=== PATIENT | male | born 1945 | race Caucasian/White ===

== ENCOUNTER 2019-11-11 07:31 | Outpatient (CLI) | payer MEDICARE, SELFPAY ==
--- NOTE | 2019-11-11 09:15 | EST_ITS ---
Patient Info Name: David Iyer Age: 74 years : 1945 Gender: Male Ht: 67 in Wt: 185 lbs BSA: 2.01 m2 HR: 65 bpm BP: 136 / 69 mmHg Heart Rhythm: Sinus Rhythm Technical Quality: Excellent Exam Date: 11/11/2019 9:06 AM Exam Location: [facility] Patient Status: Outpatient Admit Date: 11/11/2019 Staff Ordering Physician: Jd, Danielito SANCHEZ Attending Provider: Jd, Danielito SANCHEZ Referring Physician: Danielito Miles Exercise Technologist: Kellie Torres CRT Exercise Physician: Lakia De Oliveira CEP Exam Type: CA stress mckenzie w NM Study Info A nuclear stress test was performed. History/Risk Factors Hypertension: Yes Diabetes Mellitus: Yes History/Risk Factors Hypertension, Diabetes. Summary 1. 1. Negative lexiscan stress test for ischemic ST changes by ECG criteria. 2. 2. Stable hemodynamics throughout the test. 3. 3. Nuclear scan to follow and will be reported separately. Please correlate with it. Protocol: LEXISCAN Stress ECG Details Stage: REST Duration (min): 1 min : 30 sec HR (bpm): 65 SBP (mmHg): 136 DBP (mmHg): 69 Stage: REST Duration (min): 3 min : 36 sec HR (bpm): 69 SBP (mmHg): 136 DBP (mmHg): 69 Stage: STAGE 1 Duration (min): 0 min : 13 sec HR (bpm): 66 SBP (mmHg): 136 DBP (mmHg): 69 Stage: RECOVERY Duration (min): 0 min : 46 sec HR (bpm): 83 SBP (mmHg): 136 DBP (mmHg): 69 Stage: RECOVERY Duration (min): 1 min : 46 sec HR (bpm): 88 SBP (mmHg): 136 DBP (mmHg): 69 Stage: RECOVERY Duration (min): 2 min : 46 sec HR (bpm): 83 SBP (mmHg): 144 DBP (mmHg): 58 Stage: RECOVERY Duration (min): 3 min : 46 sec HR (bpm): 79 SBP (mmHg): 136 DBP (mmHg): 55 Stage: RECOVERY Duration (min): 4 min : 46 sec HR (bpm): 78 SBP (mmHg): 142 DBP (mmHg): 53 Stage: RECOVERY Duration (min): 5 min : 46 sec HR (bpm): 81 SBP (mmHg): 135 DBP (mmHg): 61 Stage: RECOVERY Duration (min): 6 min : 11 sec HR (bpm): 78 SBP (mmHg): 135 DBP (mmHg): 61 Rest HR: 69 bpm Peak HR: 89 bpm Rest Sys BP: 136 mmHg Peak Sys BP: 149 mmHg Max Pred HR: 146 bpm % Max Pred HR: 61 % Target HR: 124 bpm Max RPP: 13,261 bpm*mmHg Termination Reason: Completion of Protocol Cardiac Symptoms: Dyspnea Total Time: 0 min : 13 sec Rest Valles BP: 69 mmHg Peak Valles BP: 63 mmHg Total Dose: 0.4 mg Resting ECG Normal sinus rhythm - normal ECG. Stress ECG No abnormal ST/T wave changes with lexiscan. Arrhythmias No arrhythmias were observed during the examination. Report Signatures
== END 2019-11-11 07:32 | disposition home or self-care (01) ==
LOC: CHSIMG 07:35
PROVIDERS: PCP Family Medicine; Visit Provider Family Medicine
DX: R06.00 Dyspnea, unspecified (principal)
CPT/HCPCS: 78452; 93017; A9502; J2785

== ENCOUNTER 2023-07-04 15:39 | Outpatient (CLI) | payer MEDICARE, SELFPAY ==
--- NOTE | ~2023-07-04 | XR_ITS ---
EXAMINATION: XR chest 2V Exam Date/Time: 07/04/2023 15:48 CDT HISTORY: thyroid nodule Comparison: None. RESULT: Lines, tubes, and devices: Intact sternotomy wires. Ostial marker. Cholecystectomy clips. Lungs and pleura: Scattered granulomatous calcifications. Right hemidiaphragm elevation. No focal co nsolidation, pleural effusion, or pneumothorax. Cardiomediastinal silhouette: Stable. Other: No acute osseous or upper abdominal finding. Colonic interposition. IMPRESSION: No acute cardiopulmonary process. Reviewed, dictated and finalized at location K.
== END 2023-07-04 15:40 | disposition home or self-care (01) ==
LOC: CHSIMG 15:43
PROVIDERS: PCP Internal Medicine; Visit Provider Internal Medicine
DX: E04.1 Nontoxic single thyroid nodule (principal); I65.23 Occlusion and stenosis of bilateral carotid arteries; J45.909 Unspecified asthma, uncomplicated
CPT/HCPCS: 71046

== ENCOUNTER 2023-07-07 08:29 | Outpatient (CLI) | payer MEDICARE, SELFPAY ==
--- NOTE | ~2023-07-07 | CT_ITS ---
David Brush Date of 1945 CT of the Abdomen and Pelvis: Indication: Hematuria Technique: 2.5 mm axial scans were obtained through the abdomen and pelvis prior to and following in travenous administration of 130 cc of Omnipaque 350. Dose reduction technique was used on this scan b y utilizing automated exposure control and iterative reconstruction technique. The dose-length produc t (DLP) was mGy-cm. Findings: Scans through the lung bases demonstrate multiple calcified granulomas. The liver, spleen, pancreas, and adrenal glands are within normal limits. Cholecystectomy clips are p resent. Punctate bilateral nonobstructing renal stones are present. There are atherosclerotic calcifi cations of the aorta. No lymphadenopathy. No bowel obstruction or bowel wall thickening. There is no evidence to suggest acute appendicitis. Images through the pelvis were performed. Urinary bladder unremarkable. Prostate gland enlarged. No a scites. Impression: Punctate bilateral nonobstructing renal stones. Enlarged prostate gland. Reviewed, dictated and finalized at location . Impression: Punctate bilateral nonobstructing renal stones. Enlarged prostate gland.
--- NOTE | ~2023-07-07 | US_ITS ---
EXAMINATION: US carotid duplex BI DATE: 07/07/2023 INDICATION: Carotid stenosis TECHNIQUE: Grayscale, color Doppler, and pulsed Doppler images of the cervical carotid arteries were obtained. The degree of vessel stenosis is placed in one of the following categories: normal, <50%, 5 0-69%, >=70% but less than near-occlusion, near-occlusion, or total occlusion. Note that percent sten osis relative to normal distal artery lumen diameter is indirectly measured from velocity measurement s as described by Koby, et al. Radiology 2003; 229:340-346. COMPARISON: None. FINDINGS: RIGHT: The right common carotid artery (CCA) peak systolic velocity (PSV) is 90 cm/s. The right internal car otid artery (ICA) PSV is 110 cm/s. The right ICA end-diastolic velocity (EDV) is 20 cm/s. The right I CA/CCA PSV ratio is 1.2. Grayscale and color Doppler images yield an estimate of <50% diameter reduct ion from plaque in the ICA. The external carotid artery (ECA) PSV is 105 cm/s. There is antegrade elías w in the right vertebral artery. LEFT: The left CCA PSV is 78 cm/s. The left ICA PSV is 83 cm/s. The left ICA EDV is 28 cm/s. The left ICA/C CA PSV ratio is 1.1. Grayscale and color Doppler images yield an estimate of <50% diameter reduction from plaque in the ICA. The ECA PSV is 98 cm/s. There is antegrade flow in the left vertebral artery. IMPRESSION: 1. <50% stenosis in the right internal carotid artery. 2. <50% stenosis in the left internal carotid artery. Reviewed, dictated and finalized at location B.
--- NOTE | ~2023-07-07 | US_ITS ---
EXAMINATION: US thyroid DATE: 07/07/2023 INDICATION: Thyroid nodule TECHNIQUE: Multiple ultrasound images of the thyroid were obtained. COMPARISON: None. FINDINGS: The right thyroid lobe measures 3.3 x 1.6 x 1.4 cm. The left thyroid lobe measures 3.2 x 1.5 x 1.7 c m. The thyroid isthmus measures 2-3 mm thickness. There is heterogeneous echogenicity throughout the thyroid. 7 mm wider than tall solid hypoechoic nodule with smooth to ill-defined margins and without internal echogenic foci (TI-RADS 3, mildly suspicious , FNA if >=2.5 cm, annual followup is >1.5 cm) . IMPRESSION: 1. Heterogeneous thyroid with 7 mm TI RADS 3 right thyroid nodule which remains below threshold for e ither biopsy or follow-up. Reviewed, dictated and finalized at location B. IMPRESSION: 1. Heterogeneous thyroid with 7 mm TI RADS 3 right thyroid nodule which remains below threshold for either biopsy or follow-up.
[2023-07-07 08:59] LABS: Estimated Glomerular Filt Rate > 60
== END 2023-07-07 08:30 | disposition home or self-care (01) ==
LOC: CHSIMG 08:32
PROVIDERS: PCP Internal Medicine; Visit Provider Internal Medicine
DX: R31.9 Hematuria, unspecified (principal); E04.1 Nontoxic single thyroid nodule; I65.23 Occlusion and stenosis of bilateral carotid arteries; J45.909 Unspecified asthma, uncomplicated; N20.0 Calculus of kidney; N40.0 Benign prostatic hyperplasia without lower urinary tract symptoms
CPT/HCPCS: 36415; 74178; 76536; 93880; Q9967

== ENCOUNTER → 2024-03-11 11:06 | Outpatient (REF) | payer MEDICARE, SELFPAY | LOC: ANHLAB 11:06 | PROVIDERS: PCP Internal Medicine; Visit Provider Plastic Surgery | DX: L72.0 Epidermal cyst (principal); L90.5 Scar conditions and fibrosis of skin | CPT/HCPCS: 88305 ==

== ENCOUNTER 2024-03-25 16:06 | Outpatient (CLI) | payer MEDICARE, SELFPAY ==
--- NOTE | ~2024-03-25 | XR_ITS ---
Right Knee Technique: AP, lateral, and sunrise views were obtained. Clinical History: Pain Findings: No fracture or dislocation is seen. Evidence of prior ACL reconstruction noted. There is mo derate tricompartmental degenerative change with osteophyte formation. There is chondrocalcinosis of the menisci. Vascular calcifications are present. Moderate to large joint effusion present, with exte nsive mineralized debris and/or loose bodies within the joint, both in the suprapatellar pouch and po steriorly. Impression: Moderate tricompartmental degenerative change. Prior ACL reconstruction. Chondrocalcinosis of the menisci. Moderate to large joint effusion with extensive mineralized debris and/or loose bodies. Reviewed, dictated and finalized at [facility]. ENT RELATIONS REPRESENTATIVE Impression: Moderate tricompartmental degenerative change. Prior ACL reconstruction. Chondrocalcinosis of the menisci. Moderate to large joint effusion with extensive mineralized debris and/or loose bodies.
== END 2024-03-25 16:07 | disposition home or self-care (01) ==
LOC: CHSIMG 16:09
PROVIDERS: PCP Internal Medicine; Visit Provider Nurse Practitioner Family
DX: M11.261 Other chondrocalcinosis, right knee (principal); M25.461 Effusion, right knee; S89.91XA Unspecified injury of right lower leg, initial encounter; Z98.890 Other specified postprocedural states
CPT/HCPCS: 73562

== ENCOUNTER 2024-07-03 08:28 | Outpatient (CLI) | payer MEDICARE, SELFPAY ==
[2024-07-03 08:44] LABS: Hematocrit 40.2 % (37.0-46.0); Hemoglobin 13.5 g/dL (12.4-15.3); Mean Corpuscular HGB Conc 33.6 g/dL (32-36); Mean Corpuscular Hemoglobin 30.3 pg (27.0-31.0); Mean Corpuscular Volume 90.3 fL (78.0-102.0); Platelet Count Result 237 K/mm3 (150-420); Red Blood Count 4.45 M/mm3 (4.70-6.10); Red Cell Distribution Width 12.6 % (11.6-14.4); White Blood Count 4.7 K/mm3 (4.8-10.8)
--- OUTSIDE RECORDS SUMMARY | 2024-07-03 08:50 | XMS_ITS | Referral Summary ---
Author Organization [facility] Address [address] [place] [address] Care Team Providers Care Hand Roller Name Role Phone Danielito Miles MD Primary Care Provider [phone] Aureliano Sweeney MD Unavailable [phone] Allergies Active Allergy Reactions Criticality Noted Date Comments Hydrocodone-Acetaminophe n Other (See comments) Low 02/13/2018 constipation Opioids - Morphine Analogues Other (See comments) Low 06/23/2021 bowels lock up Penicillins Rash Medium 06/23/2021 At 6 years old Medications finasteride (PROSCAR) 5 mg tablet Take 5 mg by mouth daily Active insulin glargine (LANTUS, BASAGLAR, SEMGLEE) 100 unit/mL (3 mL) pen for injection Inject 48 Units under the skin nightly Active tamsulosin (FLOMAX) 0.4 mg extended release capsule Take 0.4 mg by mouth nightly Evening meal Active levothyroxine (SYNTHROID) 100 mcg tablet Take 100 mcg by mouth respiratory therapist before breakfast Active metFORMIN (GLUCOPHAGE) 500 mg tablet Take 500 mg by mouth 2 (two) times a day with meals Active amLODIPine (NORVASC) 10 mg tablet Take 10 mg by mouth Active ascorbic acid (VITAMIN C) 1,000 mg tablet Take 4,000 mg by mouth daily & 3,000 in the evening Active betamethasone dipropionate (DEL-BETA) 0.05 % cream Apply topically as needed (rash on face at times) Active docosahexaenoic acid-epa 120-180 mg capsule Take 1,000 mg by mouth daily Active rosuvastatin (CRESTOR) 20 mg tablet Take 20 mg by mouth daily 9 Active coenzyme Q10 100 mg capsule Take 100 mg by mouth daily Active valsartan (DIOVAN) 80 mg tablet 1 tablet daily at bedtime 2 Active vitamin B complex capsuleIndication s:Vitamin Deficiency Prevention Take 1 capsule by mouth 2 (two) times a day Active vitamin E (AQUASOL E) 100 unit capsule Take 134 Units by mouth daily Active zinc acetate 25 mg (zinc) capsule Take 25 mg by mouth daily after lunch Active magnesium oxide 400 mg magnesium capsule Take 400 mg by mouth daily after lunch Active calcium carbonate-vitamin D3 1500 mg (600 mg elemental) -200 units per tabletIndications :Vitamin D Deficiency Take 1 tablet by mouth daily Active garlic 100 mg tablet Take 100 mg by mouth daily Active cod liver oil oil Take 200 mg by mouth 2 (two) times a day Active calcium carbonate-mag hydroxid 1,000-200 mg tablet,chewableIn dications:Hypocal cemia Prevention Take 1,000 mg by mouth daily Active zlpi8-dmj-jnd-fis h oil-L.casei 120 mg-400 mg -4 billion cell capsule Take 460 mg by mouth daily after lunch Active Active Problems Problem Noted Date Diagnosed Date Lower leg mass, right 07/08/2021 Overview (07/08/2021): Added automatically from request for surgery [id number] Assessment & Plan (07/29/2021 11:24 AM CDT): Impression: Patient is status post excision partially thrombosed varicosity to right posterior calf. Surgical incision is healed. Patient reports pain relief since his procedure. Plan: Recommend continue use of compression stockings. Patient to follow-up as needed. Assessment & Plan (07/14/2021 12:58 PM CDT): Patient has a mobile painful subcutaneous mass on the right posterior calf for greater than 1 year. Possibly chronic SVT. Given its prominence and ongoing discomfort I have recommended local surgical excision. The procedures indications and all risks have been explained. He understands and agrees to proceed Type 2 diabetes mellitus wit hout complication, with long-term current use of insulin 06/25/2021 Assessment & Plan (07/14/2021 12:58 PM CDT): Chronic diabetes mellitus controlled with insulin. Continue current medical therapy. Assessment & Plan (06/25/2021 8:16 AM SHEET WRITER): Impression: Chronic diabetes mellitus controlled with insulin. Patient reports his last A1c was 7.3. Plan: Medications reviewed, no changes made. Continue glucose monitoring and management as per primary care. Pain and swelling of right lower extremity 06/25 Assessment & Plan (06/25/2021 8:38 AM SHEET WRITER): Impression: Patient complains of swelling to his right lower extremity for the past year. He also complains discomfort to the posterior calf. Patient has a palpable soft mass to posterior calf. No erythema, drainage, or open ulcerations are noted. Plan: Recommend wearing compression stockings. Recommend right lower extremity venous reflux with DVT scan and follow-up in 1-2 weeks to review results. HLD (hyperlipidemia) 06/23/2021 Assessment & Plan (07/14/2021 12:57 PM CDT): Hyperlipidemia chronic and controlled. Continue Crestor. HTN (hypertension) 06/23/2021 Assessment & Plan (07/14/2021 12:57 PM CDT): Chronic stable hypertension. Continue current medical management. Assessment & Plan (06/25/2021 8:17 AM SHEET WRITER): Impression: Chronic stable hypertension, controlled medications. Blood pressure stable this office visit. Plan: Medications reviewed, no changes made. Continue blood pressure management as per primary care provider. 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 2-3 times a week 07/15/2021 Q2: How many drinks containi ng alcohol do you have on a typical day when you are drinking? 1 or 2 07/15/2021 Q3: How often do you have si x or more drinks on one occasion? Never 07/15/2021 Sex and Gender Information Value Date Recorded Sex Assigned at Not on file Legal Sex Male 7:24 PM SHEET WRITER Gender Identity Not on file Sexual Orientation Not on file Last Filed Vital Signs Vital Sign Reading Time Taken Comments Blood Pressure 132/73 07/29/2021 10:26 AM CDT Pulse 88 07/29/2021 10:26 AM CDT Temperature 35.9 C (96.6 F) 07/15/2021 2:55 PM CDT Respiratory Rate 18 07/15/2021 3:10 PM CDT Oxygen Saturation 96% 07/15/2021 3:10 PM CDT Inhaled Oxygen Concentration - - Weight 86.2 kg (190 lb) 07/29/2021 10:26 AM CDT Height 167.6 cm (5' 6 ) 07/29/2021 10:26 AM CDT Body Mass Index 30.67 07/29/2021 10:26 AM CDT Plan of Treatment Not on file Procedures Procedure Name Priority Date/Time Associated Diagnosis Comments EGFR Routine 07/15/2021 11:44 AM CDT from Last 3 Months or Most Recently Relevant to Health Maintenance Results * eGFR (07/15/2021 11:44 AM CDT) eGFR 101 mL/min/1. 73 m2 [facility] Comment: Interpretive Data Reference Interval Normal >/= 90 mL/min/1.73m2 Mildly decreased* 60 - 89 mL/min/1.73m2 Mildly to moderately decreased 45 - 59 mL/min/1.73m2 Moderately to severely decreased 30 - 44 mL/min/1.73m2 Severely decreased 15 - 29 mL/min/1.73m2 Kidney Failure < 15 mL/min/1.73m2 *Relative to young adult level Estimated glomerular filtration rate is determined by the 2020 CKD-EPI equation recommended by the National Kidney Foundation (A Unifying Approach to GFR Estimation: Recommendations of the NKF-ASK Task Force on Reassessing the Inclusion of Race in Diagnosing Kidney Disease, JASN 2020). The CKD-EPI equation should not be used for patients with unstable renal function and has not been validated in children and those over 70. Current interpretive data was last reviewed 2021. Blood 07/15/2021 11:4 4 AM CDT 07/15/2021 11:56 AM CDT us Aureliano Sweeney MD LAB BLOOD ORDERABLES Final Result [facility] [address] [facility] Department [place] [address] from Last 3 Months or Most Recently Relevant to Health Maintenance Insurance MEDICARE HMO/PPO [facility] MEDICARE HMO/PPO MEDICARE HMO/PPO Care Teams Hand Roller Relationship Specialty Start Date End Date Danielito Miles MD PCP - General Family Medicine 05/21/21 Aureliano Sweeney MD [address] [facility] [address] [address] Surgeon Surgery 07/15/21
--- OUTSIDE RECORDS SUMMARY | 2024-07-03 08:50 | XMS_ITS | Clinical Summary ---
Author Organization [facility] Address [address] [place] [address] Care Team Providers Care Videotape Operator Name Role Phone Danielito Miles MD Primary Care Provider [phone] Aureliano Sweeney MD Unavailable [phone] Allergies Active Allergy Reactions Criticality Noted Date [...] mcg tablet Take 100 mcg by mouth platen press feeder before breakfast Active metFORMIN (GLUCOPHAGE) 500 mg [...] Take 1,000 mg by mouth daily Active uikf0-cup-zjv-fis h oil-L.casei 120 mg-400 mg -4 billion cell capsule Take 460 mg by mouth daily after lunch Active Active Problems Problem Noted Date Diagnosed Date Lower leg mass, right 07/08/2021 Overview (07/08/2021): Added automatically from request for surgery [id number] Assessment & Plan (07/29/2021 11:24 AM CDT): [...] therapy. Assessment & Plan (06/25/2021 8:16 AM WET PROCESS MILLER HEAD ASSISTANT): Impression: Chronic diabetes mellitus controlled with insulin. Patient reports his last A1c was 7.3. Plan: Medications reviewed, no changes made. Continue glucose monitoring and management as per primary care. Pain and swelling of right lower extremity 06/25 Assessment & Plan (06/25/2021 8:38 AM WET PROCESS MILLER HEAD ASSISTANT): Impression: Patient complains of swelling to his [...] management. Assessment & Plan (06/25/2021 8:17 AM WET PROCESS MILLER HEAD ASSISTANT): Impression: Chronic stable hypertension, controlled medications. Blood [...] Pneumococcal Polysaccharide PPV23 05/07/2018 ZOSTER Recombinant 12/01/2020,05/02/2020 Surgical History Surgery Date Site/Laterality Comments TENDON REPAIR Left achilles tendon APPENDECTOMY KNEE ARTHROPLASTY 04/24/1956 - 04/23/1957 ACL/reconstruction CYST REMOVAL cyst removed from neck TRIGGER FINGER RELEASE 04/24/2018 - 04/23/2019 left thumb KIDNEY STONE SURGERY cystocsopy/stone retrievel VASECTOMY EYE SURGERY cataract excisions CATARACT EXTRACTION 04/24/2019 - 04/23/2020 bilat VASCULAR SURGERY 07/15/2021 Right EXCISION RIGHT CALF MASS Medical History Medical History Date Comments Diabetes (HCC) Hyperlipidemia Hypertension BPH (benign prostatic hyperplasia) Leg mass, right Type 2 diabetes mellitus (HCC) Histoplasmosis Many years ago, 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 soon Sleep apnea CPAP THREE AFFILIATED (hard of hearing) mild Arthritis Hypothyroid on medication Family History Medical History Relation Name Comments Diabetes Paternal Grandmother Relation Name Status Comments Father Mother Paternal Grandmother Social History Tobacco Use Types Packs/Day Years [...] on file Legal Sex Male 7:24 PM WET PROCESS MILLER HEAD ASSISTANT Gender Identity Not on file Sexual Orientation Not on file Obstetrics History Last Filed Vital Signs Vital Sign Reading [...] 07/29/2021 10:26 AM CDT Plan of Treatment Health Maintenance Due Date Last Done Comments Albumin Creatinine Ratio, Urine 1945 Depression Screening 1945 Hemoglobin A1C 1945 Hepatitis C Screening 1945 Dilated Eye Exam 1945 Foot Exam 1945 Lipid Panel 1945 DTaP/Tdap/Td Vaccine (1 - Tdap) 1956 Hepatitis B Screening 11/04/1963 Abdominal Aortic Aneurysm (A AA) Screen 2010 Well Visit 65+ 2010 Fall Risk Assessment 07/15/2022 07/15/2021 eGFR 07/15/2022 07/15/2021 Covid-19 Vaccine ( season) 2023, 07/10/2020 Influenza Vaccine (#1) 2023 , 02/12/2019, 02/06/2018 Pneumococcal vaccine 65+ Completed 05/07/2018, 04/24 Zoster Vaccine Completed 12/01/2020, 05/02/2020 Procedures Procedure Name Priority Date/Time Associated Diagnosis Comments EGFR Routine 07/15/2021 11:44 AM CDT from Last 3 Months or Most Recently Relevant to Health Maintenance Results * eGFR (07/15/2021 11:44 AM CDT) eGFR 101 mL/min/1. 73 m2 [facility] Comment: Interpretive Data Reference Interval Normal >/= [...] Sweeney MD LAB BLOOD ORDERABLES Final Result [facility] [address] [facility] Department [place] [address] from Last 3 Months or Most Recently Relevant to Health Maintenance Insurance MEDICARE HMO/PPO MEDICARE HMO/PPO MEDICARE HMO/PPO Care Teams Videotape Operator Relationship Specialty Start Date End Date Danielito Miles MD PCP - General Family Medicine 05/21/21 Aureliano Sweeney MD [address] [facility] [address] [address] Surgeon Surgery 07/15/21
--- OUTSIDE RECORDS SUMMARY | 2024-07-03 08:50 | XMS_ITS | Encounter Summary ---
Author Organization [facility] Address [facility] [place] [address] Care Team Providers Care Mortgage Advisor Name Role Phone Danielito Miles MD Primary Care Provider Hermilo Renee MD Unavailable Mikel Portillo MD Unavailable Unavailabl e Jose Kumar MD Unavailable [phone] Amber Ramon APRN, COMPANY LABORER-C Unavailable Theo Alford MD Primary Care Provider Encounter Details Date Type Department Care Team (Late st Contact Info) Description 02/11/2022 SolFocus Message Enc [place] [facility] ield [address] [place], [place] [address] Lucina Barba, COLEEN [address] [facility] 2nd Floor [address] [place] [address] [place] results Social History Tobacco Use Types Packs/Day Years Used Date Smoking Tobacco: Former Cigarettes 2 15 1 961 - 1975 Smokeless Tobacco: Never Alcohol Use Standard Drinks/Week Comments Yes 3 (1 standard drink = 0.6 oz pur e alcohol) PHQ-2 Answer Date Recorded PHQ-2 Score - If the patient scores above 3, please move on to questions 3-9 0 01/13/2021 Sex and Gender Information Value Date Recorded Sex Assigned at Not on file Legal Sex Male 3:55 PM CDT Gender Identity Not on file Sexual Orientation Not on file COVID-19 Exposure Response Date Recorded In the last 10 days, have yo u been in contact with someone who was confirmed or suspected to have Coronavirus/COVID-19? No / Unsure 02/04/2022 8:58 AM CDT documented as of this encounter Functional Status * RETIRED Are you deaf or do you have serious difficulty hearing Answer Date of Assessment Author Status No 02/05/2022 6:00 PM CDT Activ e * RETIRED Are you blind or do you have serious difficulty seeing, even when wearing glasses? Answer Date of Assessment Author Status No 02/05/2022 6:00 PM CDT Activ e * Do you have serious difficulty walking or climbing stairs? Answer Date of Assessment Author Status No 02/05/2022 6:00 PM CDT Clair Christy RN Active * Do you have difficulty dressing or bathing? Answer Date of Assessment Author Status No 02/05/2022 6:00 PM CDT Clair Christy RN Active * Because of a physical, mental, or emotional condition, do you have difficulty doing errands alone such as visiting a doctor's office or shopping? Answer Date of Assessment Author Status No 02/05/2022 6:00 PM CDT Clair Christy RN Active documented as of this encounter Mental Status * Because of a physical, mental, or emotional condition, do you have serious difficulty concentrating, remembering, or making decisions? Answer Entry Date Author Status No 02/05/2022 6:00 PM CDT Clair Christy RN Active documented in this encounter Plan of Treatment Not on file documented as of this encounter Goals Goal Patient Goal Type Associated Problems Recent Progress Patient-Stated? Author Patient will return to prior living situation and remain independent in ADLs upon discharge from hospital Lifestyle Jaylene العلي RN Safety Patient/family will have appropriate support at home upon discharge Lifestyle No Tilling, Jaylene M, RN documented as of this encounter Visit Diagnoses Not on filedocumented in this encounter Additional Health Concerns Infection Onset Date Last Indicated Resolved Time COVID-19 Rule Out 04/08/2022 04/08/2022 04/08/2022 8:52 PM PLANT PROTECTION OFFICER Parainfluenza 04/08/2022 04/08/2022 04/18/2022 12: 33 AM PLANT PROTECTION OFFICER Assessment Noted Time PHQ-9 Depression Total Score: 0 01/14/20 21 10:06 AM CDT documented as of this encounter Care Teams Mortgage Advisor Relationship Specialty Start Date End Date Danielito Miles MD [address] [place] [phone] PCP - General FAMILY PRACTICE 11/17/17 09/25/23 Theo Alford MD [address] [place] [phone] PCP - General INTERNAL MEDICINE 09/26/23 Hermilo Renee MD [address] [place] [phone] INTERNAL MEDICINE 05/26/21 Mikel Portillo MD [address] [place] [phone] Consulting Physician CARDIOVASCULAR DISEASE 12/01/21 Jose Kumar MD [address] [place] [address] Consulting Physician PULMONARY DISEASE 12/03/21 Amber Ramon, LIBRARY MEDIA SPECIALIST, COMPANY LABORER-C [address] [facility] [address] [phone] NURSE PRACTITIONER 12/03/21 documented as of this encounter
--- OUTSIDE RECORDS SUMMARY | 2024-07-03 08:50 | XMS_ITS | Encounter Summary ---
Author Organization [facility] Address [facility] [place] [address] Care Team Providers Care Incinerator Plant Laborer Name Role Phone Danielito Miles MD Primary Care Provider Hermilo Renee MD Unavailable Mikel Portillo MD Unavailable Unavailabl e Jose Kumar MD Unavailable [phone] Amber Ramon APRN, HOOKER MACHINE TENDER-C Unavailable Theo Alford MD Primary Care Provider [phone] Encounter Details Date Type Department Care Team (Late st Contact Info) Description 04/07/2022 Hospital Follow-up Call [facility] [address] [place] [address] Shannon Asher, GILBERTO Social History Tobacco Use Types Packs/Day Years Used Date Smoking Tobacco: Former Cigarettes 2 15 96 - 1975 Smokeless Tobacco: Never Alcohol Use [...] suspected to have Coronavirus/COVID-19? No / Unsure 04/08/2022 11:57 AM GRIP ASSEMBLER documented as of this encounter Functional Status * Question Answer Date of Assessment Author Status Do you have serious difficulty walking or climbing stairs? No 04/08/2022 6:26 PM Indira Downing RN Acti ve * Question Answer Date of Assessment Author Status Do you have difficulty dressing or bathing? No 04/08/2022 6:26 PM Indira Downing RN Active Because of a physical, mental, or emotional condition, do you have difficulty doing errands alone such as visiting a doctor's office or shopping? No 04/08/2022 6:26 PM Demarco Downing RN Active * RETIRED Are you deaf or do you have serious difficulty hearing Answer Date of Assessment Author Status No 03/29/2022 6:10 AM GRIP ASSEMBLER Activ e * RETIRED Are you blind or do you have serious difficulty seeing, even when wearing glasses? Answer Date of Assessment Author Status No 03/29/2022 6:10 AM GRIP ASSEMBLER Activ e * Do you have serious difficulty walking or climbing stairs? Answer Date of Assessment Author Status No 03/29/2022 6:10 AM Maritza Muro RN Active * Do you have difficulty dressing or bathing? Answer Date of Assessment Author Status No 03/29/2022 6:10 AM Maritza Muro RN Active * Because of a physical, mental, or emotional condition, do you have difficulty doing errands alone such as visiting a doctor's office or shopping? Answer Date of Assessment Author Status No 03/29/2022 6:10 AM Maritza Muro RN Active documented as of this encounter Mental Status * Question Answer Entry Date Author Status Because of a physical, mental, or emotional condition, do you have serious difficulty concentrating, remembering, or making decisions? No 04/08/2022 6:26 PM Indira Downing RN Active * Because of a physical, mental, or emotional condition, do you have serious difficulty concentrating, remembering, or making decisions? Answer Entry Date Author Status No 03/29/2022 6:10 AM GRIP ASSEMBLER Maritza Manzo RN Active documented in this encounter Plan of Treatment Not on file documented as of this encounter Goals Goal Patient Goal Type Associated Problems Recent Progress Patient-Stated? Author Patient will return to prior living situation and remain independent in ADLs upon discharge from hospital Lifestyle Jaylene العلي RN Safety Patient/family will have appropriate support at home upon discharge Lifestyle Jaylene العلي RN documented as of this encounter Visit Diagnoses Not on filedocumented in this encounter Additional Health Concerns Infection Onset Date Last Indicated Resolved Time COVID-19 Rule Out 04/08/2022 04/08/2022 04/08/2022 8:52 PM GRIP ASSEMBLER Parainfluenza 04/08/2022 04/08/2022 04/18/2022 12: 33 AM GRIP ASSEMBLER Assessment Noted Time PHQ-9 Depression Total Score: 0 01/14/20 21 10:06 AM CDT documented as of this encounter Care Teams Incinerator Plant Laborer Relationship Specialty Start Date End Date Danielito Miles MD [address] [place] [phone] PCP - General FAMILY PRACTICE 11/17/17 09/25/23 Theo Alford MD [address] [place] [phone] PCP - General INTERNAL MEDICINE 09/26/23 Hermilo Renee MD [address] [place] [phone] INTERNAL MEDICINE 05/26/21 Mikel Portillo MD [address] [place] [phone] Consulting Physician CARDIOVASCULAR DISEASE 12/01/21 Jose Kumar MD [address] [place] [address] Consulting Physician PULMONARY DISEASE 12/03/21 Amber Ramon, CELESTINA, HOOKER MACHINE TENDER-C [address] [facility] [address] [place] [address] NURSE PRACTITIONER 12/03/21 documented as of this encounter
--- OUTSIDE RECORDS SUMMARY | 2024-07-03 08:50 | XMS_ITS | Encounter Summary ---
Author Organization [facility] Address [facility] [place] [address] Care Team Providers Care Fermentologist Name Role Phone Danielito Miles MD Primary Care Provider [phone] Hermilo Renee MD Unavailable Miekl Portillo MD Unavailable Unavailabl e Jose Kumar MD Unavailable [phone] Amber Ramon SLOT SERVICE SPECIALIST, BUSINESS RESILIENCY MANAGER-C Unavailable Theo Alford MD Primary Care Provider [phone] Encounter Details Date Type Department Care Team (Late st Contact Info) Description 12/04/2021 MyChart Message Enc [facility] [address] [place] [address] Jose Kumar MD [address] [place] [address] bicycle rides continued Social History Tobacco Use Types Packs/Day Years [...] suspected to have Coronavirus/COVID-19? No / Unsure 12/03/2021 10:57 AM CDT documented as of this encounter Plan of Treatment Not on file documented as of this encounter Visit Diagnoses Not on filedocumented in this encounter Additional Health Concerns Infection Onset Date Last Indicated Resolved Time COVID-19 Rule Out 04/08/2022 04/08/2022 04/08/2022 8:52 PM SURGEON'S ASSISTANT Parainfluenza 04/08/2022 04/08/2022 04/18/2022 12: 33 AM SURGEON'S ASSISTANT Assessment Noted Time PHQ-9 Depression Total Score: 0 01/14/20 21 10:06 AM CDT documented as of this encounter Care Teams Fermentologist Relationship Specialty Start Date End Date Danielito Miles MD [address] [place] [phone] PCP - General FAMILY PRACTICE 11/17/17 09/25/23 Theo Alford MD [address] [place] [phone] PCP - General INTERNAL MEDICINE 09/26/23 Hermilo Renee MD [address] [place] [phone] INTERNAL MEDICINE 05/26/21 Mikel Portillo MD [address] [place] [phone] Consulting Physician CARDIOVASCULAR DISEASE 12/01/21 Jose Kumar MD [address] [place] [address] Consulting Physician PULMONARY DISEASE 12/03/21 Amber Ramon, CELESTINA, BUSINESS RESILIENCY MANAGER-C [address] [place] [id number] [place] [address] NURSE PRACTITIONER 12/03/21 documented as of this encounter
--- OUTSIDE RECORDS SUMMARY | 2024-07-03 08:50 | XMS_ITS | Encounter Summary ---
Author Organization [facility] Address [address] [place] [address] Care Team Providers Care Checker Loader Name Role Phone Danielito Miles MD Primary Care Provider [phone] Hermilo Renee MD Unavailable Mikel Portillo MD Unavailable Unavailabl e Jose Kumar MD Unavailable [phone] Amber Ramon CSW, CAM MAKER-C Unavailable Theo Alford MD Primary Care Provider Encounter Details Date Type Department Care Team (Late st Contact Info) Description 09/29/2018 Abstract [facility] CONVERSION [address] [place] [address] , Generic Conversion, Social History Tobacco Use Types Packs/Day Years Used Date Smoking Tobacco: Former Sex and Gender Information Value Date Recorded Sex Assigned at Not on file Legal Sex Male 3:55 PM CDT Gender Identity Not on file Sexual Orientation Not on file documented as of this encounter Plan of Treatment Not on file documented as of this encounter Visit Diagnoses Not on filedocumented in this encounter Additional Health Concerns Infection Onset Date Last Indicated Resolved Time COVID-19 Rule Out 11/18/2019 11/18/2019 11/19/2019 6:08 PM CDT COVID-19 Rule Out 04/08/2022 04/08/2022 04/08/2022 8:52 PM SUBSTATION OPERATOR CONVERSION Parainfluenza 04/08/2022 04/08/2022 04/18/2022 12: 33 AM SUBSTATION OPERATOR CONVERSION documented as of this encounter Care Teams Checker Loader Relationship Specialty Start Date End Date Danielito Miles MD [address] [place] [phone] PCP - General FAMILY PRACTICE 11/17/17 09/25/23 Theo Alford MD [address] [place] [phone] PCP - General INTERNAL MEDICINE 09/26/23 Hermilo Renee MD [address] [place] [phone] INTERNAL MEDICINE 05/26/21 Mikel Portillo MD [address] [place] [phone] Consulting Physician CARDIOVASCULAR DISEASE 12/01/21 Jose Kumar MD [address] [place] [address] Consulting Physician PULMONARY DISEASE 12/03/21 Amber Ramon APRN, CAM MAKER-C [address] [phone] NURSE PRACTITIONER 12/03/21 documented as of this encounter
--- OUTSIDE RECORDS SUMMARY | 2024-07-03 08:50 | XMS_ITS | Clinical Summary ---
Author Organization [facility] Address [address] [place] [phone] Phone Care Team Providers Care Milk Runner Name Role Phone Danielito Miles MD Primary Care Provider Allergies Active Allergy Reactions Criticality Noted Date Comments Beta-Blockers (Beta-Adrenerg ic Blocking Agts) Hypotension High 05/04/2022 Hydrocodone Constipation Low 05/04/2022 Hydromorphone (Bulk) Rash Low 05/04/2022 Morphine Constipation Low 05/04/2022 Penicillins Rash Low 05/04/2022 Tramadol Constipation Low 05/04/2022 Medications aspirin (JOHN CHEWABLE) 81 mg Tablet, Chewable Take 81 mg by mouth daily. Active B-complex + vitamin C (SUPER B-C) Tablet Take 1 Tablet by mouth daily. Active calcium-choleca lciferol (OS-JD 500+D) 500 mg-5 mcg (200 unit) tablet Take 1 Tablet by mouth daily. Active Cod Liver Oil Capsule Take 2,000 mg by mouth daily. Active coenzyme Q10 100 mg Capsule Take 100 mg by mouth daily. Active dicyclomine (BENTYL) 20 mg tablet Take 20 mg by mouth every 6 hours as needed for Pain. 3 Active finasteride (PROSCAR) 5 mg tablet Take 5 mg by mouth daily at bedtime. Active insulin glargine (LANTUS) 100 unit/mL injection Inject 40 Units by subcutaneous injection daily at bedtime. 2 Active lactulose (ENULOSE) 20 gram/30 mL Take 20 Grams by mouth 2 times daily as needed for Constipation. 3 Active levothyroxine 100 mcg tablet Take 100 mcg by mouth daily in the morning. Active magnesium oxide (MAG-OX) 400 mg (241.3 mg magnesium) tablet Take 400 mg by mouth daily. Active metFORMIN (GLUCOPHAGE) 500 mg tablet Take 500 mg by mouth 2 times daily with meals. Active rosuvastatin (CRESTOR) 20 mg tablet Take 20 mg by mouth daily. Active sennosides-docu sate sodium (SENNA-S) 8.6-50 mg tablet Take 2 Tablets by mouth daily at bedtime. 2 Active tamsulosin (FLOMAX) 0.4 mg capsule Take 0.4 mg by mouth daily at bedtime. Active valsartan (DIOVAN) 80 mg tablet Take 80 mg by mouth daily. Active albuterol sulfate HFA 90 mcg/actuation aerosol inhaler Take 2 Puffs by inhalation every 6 hours as needed for Shortness of Breath. Active cpap medical stenographer Low pressure 5. High pressure 20. Active famotidine (PEPCID) 20 mg tablet Take 20 mg by mouth 2 times daily. Active omega-3 fatty acids-fish oil 300-1,000 mg Capsule Take 1 Capsule by mouth daily. Active GARLIC ORAL Take 1 Tablet by mouth daily. Active montelukast (SINGULAIR) 10 mg tablet Take 10 mg by mouth daily at bedtime. Active simethicone 125 mg Tablet, Chewable Take 125 mg by mouth every 6 hours as needed for Gas. 3 Active vitamin E acetate 134 mg (200 unit) Capsule Take 1 Capsule by mouth daily. Active zinc gluconate 50 mg Tablet Take 25 mg by mouth daily. Active amLODIPine (NORVASC) 2.5 mg tablet Take 2.5 mg by mouth daily. Active acetaminophen (TYLENOL) 325 mg tablet Take 2 Tablets (650 mg) by mouth every 6 hours as needed for Other (See Comment) (See admin instructions). 3 Active polyethylene glycol (MIRALAX) 17 gram Powder in Packet Take 1 Packet (17 Grams) by mouth daily. 3 Active furosemide (LASIX) 40 mg tablet Take 1 Tablet (40 mg) by mouth daily. 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 05/04/2022 Slow transit constipation 05/04/2022 Leukemoid reaction 05/04/2022 Acute cholecystitis 05/04/2022 Benign prostatic hyperplasia with urinary hesita ncy 05/04/2022 PEREZ (obstructive sleep apnea) 05/04/2022 Acquired hypothyroidism 05/04/2022 Immunizations Immunization Administration Dates Next Due Influenza Seasonal Unspecified Formulation IM Family History Medical History Relation Name Comments Hypertension Father at 101 Dementia Mother in her 90' s Relation Name Status Comments Father Mother Social History Tobacco Use Types Packs/Day Years Used Date Smoking Tobacco: Former Cigarettes 2 15 1 961 1975 Tobacco Cessation:Counseling Given: Not Answered Alcohol Use Standard Drinks/Week Comments Yes 3 (1 standard drink = 0.6 oz pur e alcohol) Sex and Gender Information Value Date Recorded Sex Assigned at Not on file Legal Sex Male 7:19 PM LABOR CONCILIATOR Gender Identity Not on file Sexual Orientation Not on file Last Filed Vital Signs Vital Sign Reading Time Taken Comments Blood Pressure 116/58 05/19/2022 11:47 AM LABOR CONCILIATOR Pulse 96 05/07/2022 10:27 AM LABOR CONCILIATOR Temperature 36.4 C (97.6 F) 05/19/2022 11:47 AM LABOR CONCILIATOR Respiratory Rate 18 05/07/2022 10:27 AM LABOR CONCILIATOR Oxygen Saturation 95% 05/07/2022 10:27 AM LABOR CONCILIATOR Inhaled Oxygen Concentration - - Weight 78.5 kg (173 lb) 05/19/2022 11:47 AM LABOR CONCILIATOR Height 167.6 cm (5' 6 ) 05/19/2022 11:47 AM LABOR CONCILIATOR Body Mass Index 27.92 05/19/2022 11:47 AM LABOR CONCILIATOR Plan of Treatment Health Maintenance Due Date Last Done Comments DIABETES ANNUAL FOOT EXAM 11/04/1963 DIABETES ANNUAL RETINAL EXAM 11/04/1963 DIABETES MICROALBUMIN ANNUAL SCREEN 11/04/1963 LDL CHOLESTEROL ANNUAL 11/04/1963 DTAP/TDAP/TD VACCINES (1 - Tdap) 1964 RSV VACCINE (60+ or ) (1 - 1-dose 75+ series) 2020 DIABETES HBA1C Q 6 MONTHS 08/06/2022 02/05/2022 INFLUENZA VACCINE (#1) 2023 , 03/05/2020, 02/12/2019, Additional history exists PNEUMOCOCCAL VACCINE 50+ YEARS Completed 05/07/2018 , 05/04/2017 ZOSTER VACCINE Completed 12/01/2020, 05/02/2020 Medical Devices Implanted Type Area Patternmaker Helper Device Identifier Shelf Expiration Date Model / Serial / Lot Clip Ti Med/Lg 3200 - [facility] - [id number] Implanted:Qty: 1 on 05/05/2022 by Wilber Lockett MD at [facility] N/A: Abdomen TELEFLEX- WECK CLOSURE SYS 12/23/2026 [id number] / / [id number] Clip Ti Med/Lg 3200 - [facility] - [id number] Implanted:Qty: 1 on 05/05/2022 by Wilber Lockett MD at [facility] N/A: Abdomen TELEFLEX- WECK CLOSURE SYS 11/29/2026 [id number] / / [id number] Hemostatic Surg Powder 3013sp - [id number] Implanted:Qty: 1 on 05/05/2022 by Wilber Lockett MD at [facility] Hemostatic N/A: Abdomen [employer]- [employer] 06/22/2023 [id number] / / [id number] Insurance AETNA O [facility] RX AETNA Medicare Part D Advance Directives For more information, please contact: [phone] * Full Code (Latest Code Status on File) Date Activated Date Inactivated Comments 05/06/2022 7:51 PM 05/07/2022 7:28 PM * Full Code Date Activated Date Inactivated Comments 05/04/2022 8:44 AM 05/06/2022 7:50 PM * Default Full Code - Needs Discussion Date Activated Date Inactivated Comments 05/04/2022 4:41 AM 05/04/2022 8:43 AM Care Teams Milk Runner Relationship Specialty Start Date End Date Danielito Miles MD [address] [place] [address] PCP - General Family Practice 05/04/22
--- OUTSIDE RECORDS SUMMARY | 2024-07-03 08:50 | XMS_ITS | Encounter Summary ---
Author Organization [facility] Address Critical access hospital[address] [place] [address] Care Team Providers Care Foster Winder Name Role Phone Danielito Miles MD Primary Care Provider Hermilo Renee MD Unavailable Mikel Portillo MD Unavailable Unavailabl e Jose Kumar MD Unavailable [phone] Amber Ramon APRN, REGULATORY AFFAIRS INTERNSHIP-C Unavailable [phone] Theo Alford MD Primary Care Provider Encounter Details Date Type Department Care Team ([facility] st Contact Info) Description 01/05/2021 Crunchedt Message Enc [place] [facility] [address] [place] [address] Amber Ramon APRN, REGULATORY AFFAIRS INTERNSHIP-C [address] [facility] [address] [place] [address] RE: Other Social History Tobacco Use Types Packs/Day Years [...] Exposure Response Date Recorded In the last month, have you been in contact with someone who was confirmed or suspected to have Coronavirus / COVID-19? Yes 01/08/2021 12:59 PM CDT documented as of this encounter Plan of Treatment Not on file documented as of this encounter Visit Diagnoses Not on filedocumented in this encounter Additional Health Concerns Infection Onset Date Last Indicated Resolved Time COVID-19 Rule Out 04/08/2022 04/08/2022 04/08/2022 8:52 PM SEAFOOD TEAM MEMBER Parainfluenza 04/08/2022 04/08/2022 04/18/2022 12: 33 AM SEAFOOD TEAM MEMBER documented as of this encounter Care Teams Foster Winder Relationship Specialty Start Date End Date Danielito Miles MD [address] [place] [phone] PCP - General FAMILY PRACTICE 11/17/17 09/25/23 Theo Alford MD [address] [place] [phone] PCP - General INTERNAL MEDICINE 09/26/23 Hermilo Renee MD [address] [place] [phone] INTERNAL MEDICINE 05/26/21 Mikel Portillo MD [address] [place] [phone] Consulting Physician CARDIOVASCULAR DISEASE 12/01/21 Jose Kumar MD [address] [place] [address] Consulting Physician PULMONARY DISEASE 12/03/21 Amber Ramon, BAR USEFUL OR BUSSER, REGULATORY AFFAIRS INTERNSHIP-C [address] [facility] [address] [place] [phone] NURSE PRACTITIONER 12/03/21 documented as of this encounter
--- OUTSIDE RECORDS SUMMARY | 2024-07-03 08:50 | XMS_ITS | Encounter Summary ---
Author Organization [facility] Address [facility] [place] [address] Care Team Providers Care Risk Assessment Analyst Name Role Phone Danielito Miles MD Primary Care Provider [phone] Hermilo Renee MD Unavailable Mikel Portillo MD Unavailable Unavailabl e Jose Kumar MD Unavailable [phone] Amber Ramon APRN, STORE LEAD-C Unavailable [phone] Theo Alford MD Primary Care Provider Reason for Visit * Reason Onset Date Comments Results 01/07/2021 Encounter Details Date Type Department Care Team (Late st Contact Info) Description 01/07[facility]2021 [facility] [address] [place] [address] Jeff Oliveros MD [address] [place] [address] Results Social History Tobacco Use Types Packs/Day Years [...] PM CDT documented as of this encounter Progress Notes * April Mcgill - 01/07/2021 10:23 AM CDT Patient's COVID test results are: NEGATIVE documented in this encounter Plan of Treatment Not on file documented as of this encounter Visit Diagnoses Not on filedocumented in this encounter Additional Health Concerns Infection Onset Date Last Indicated Resolved Time COVID-19 Rule Out 04/08/2022 04/08/2022 04/08/2022 8:52 PM IRON AND STEEL WORK SUPERVISOR Parainfluenza 04/08/2022 04/08/2022 04/18/2022 12: 33 AM IRON AND STEEL WORK SUPERVISOR documented as of this encounter Care Teams Risk Assessment Analyst Relationship Specialty Start Date End Date Danielito Miles MD [address] [place] [phone] PCP - General FAMILY PRACTICE 11/17/17 09/25/23 Theo Alford MD [address] [place] [address] PCP - General INTERNAL MEDICINE 09/26/23 Hermilo Renee MD [address] [place] [phone] INTERNAL MEDICINE 05/26/21 Mikel Portillo MD [address] [place] [phone] Consulting Physician CARDIOVASCULAR DISEASE 12/01/21 Jose Kumar MD [address] [phone] Consulting Physician PULMONARY DISEASE 12/03/21 Amber Ramon APRN, STORE LEAD-C [address] [phone] NURSE PRACTITIONER 12/03/21 documented as of this encounter
--- OUTSIDE RECORDS SUMMARY | 2024-07-03 08:50 | XMS_ITS | Encounter Summary ---
Author Organization [facility] Address [facility] [place] [address] Care Team Providers Care Electronics Commodity Manager Name Role Phone Danielito Miles MD Primary Care Provider Hermilo Renee MD Unavailable Mikel Portillo MD Unavailable Unavailabl e Jose Kumar MD Unavailable [phone] Amber Ramon HAND FLATWORK FINISHER, MINE INSPECTOR-C Unavailable Theo Alford MD Primary Care Provider [phone] Encounter Details Date Type Department Care Team (Late st Contact Info) Description 12/04/2021 MyChart Message Enc [facility] [address] [place] [address] Jose Kumar MD [address] [place] [address] bicycle rides Social History Tobacco Use Types Packs/Day Years [...] AM CDT documented as of this encounter Progress Notes * Jose Kumar MD - 12/07/2021 9:49 PM CDT Please add patient to my schedule in [place] for December 09 and give him the date and time. * Jolie Hernandez MA - 12/06/2021 10:10 AM CDT See other Vayyar message as well documented in this encounter Plan of Treatment Not on file documented as of this encounter Visit Diagnoses Not on filedocumented in this encounter Additional Health Concerns Infection Onset Date Last Indicated Resolved Time COVID-19 Rule Out 04/08/2022 04/08/2022 04/08/2022 8:52 PM ENERGY SALES CONSULTANT Parainfluenza 04/08/2022 04/08/2022 04/18/2022 12: 33 AM ENERGY SALES CONSULTANT Assessment Noted Time PHQ-9 Depression Total Score: 0 01/14/20 21 10:06 AM CDT documented as of this encounter Care Teams Electronics Commodity Manager Relationship Specialty Start Date End Date Danielito Miles MD [address] [place] [phone] PCP - General FAMILY PRACTICE 11/17/17 09/25/23 Theo Alford MD [address] [place] [address] PCP - General INTERNAL MEDICINE 09/26/23 Hermilo Renee MD [address] [place] [phone] INTERNAL MEDICINE 05/26/21 Mikel Portillo MD [address] [place] [phone] Consulting Physician CARDIOVASCULAR DISEASE 12/01/21 Jose Kumar MD [address] [place] [address] Consulting Physician PULMONARY DISEASE 12/03/21 Amber Ramon, HAND FLATWORK FINISHER, MINE INSPECTOR-C [address] [phone] NURSE PRACTITIONER 12/03/21 documented as of this encounter
--- OUTSIDE RECORDS SUMMARY | 2024-07-03 08:51 | XMS_ITS | Encounter Summary ---
Author Organization [facility] Address [facility] [place] [address] Care Team Providers Care Table Tender Sludge Name Role Phone Danielito Miles MD Primary Care Provider Hermilo Renee MD Unavailable Mikel Portillo MD Unavailable Unavailabl e Jose Kumar MD Unavailable [phone] Amber Ramon BEFORE AND AFTER SCHOOL DAYCARE WORKER, WORKFORCE MANAGER-C Unavailable [phone] Theo Alford MD Primary Care Provider Encounter Details Date Type Department Care Team (Late st Contact Info) Description 12/13/2021 MyChart Message Enc [facility] [address] [place] [address] Jose Kumar MD [address] [place] [address] chest x-ray Social History Tobacco Use Types Packs/Day Years [...] suspected to have Coronavirus/COVID-19? No / Unsure 12/09/2021 10:55 AM CDT documented as of this encounter Plan of Treatment Not on file documented as of this encounter Visit Diagnoses Not on filedocumented in this encounter Additional Health Concerns Infection Onset Date Last Indicated Resolved Time COVID-19 Rule Out 04/08/2022 04/08/2022 04/08/2022 8:52 PM CUSTOMER SERVICE OFFICER Parainfluenza 04/08/2022 04/08/2022 04/18/2022 12: 33 AM CUSTOMER SERVICE OFFICER Assessment Noted Time PHQ-9 Depression Total Score: 0 01/14/20 21 10:06 AM CDT documented as of this encounter Care Teams Table Tender Sludge Relationship Specialty Start Date End Date Danielito Miles MD [address] [place] [phone] PCP - General FAMILY PRACTICE 11/17/17 09/25/23 Theo Alford MD [address] [place] [address] PCP - General INTERNAL MEDICINE 09/26/23 Hermilo Renee MD [address] [place] [phone] INTERNAL MEDICINE 05/26/21 Mikel Portillo MD [address] [place] [phone] Consulting Physician CARDIOVASCULAR DISEASE 12/01/21 Jose Kumar MD [address] [place] [address] Consulting Physician PULMONARY DISEASE 12/03/21 Amber Ramon, CELESTINA, WORKFORCE MANAGER-C [address] [id number] [place] [address] NURSE PRACTITIONER 12/03/21 documented as of this encounter
--- OUTSIDE RECORDS SUMMARY | 2024-07-03 08:51 | XMS_ITS | Encounter Summary ---
Author Organization [facility] Address [facility] [place] [address] Care Team Providers Care Back Stayer Name Role Phone Danielito Miles MD Primary Care Provider Hermilo Renee MD Unavailable Mikel Portillo MD Unavailable Unavailabl e Jose Kumar MD Unavailable [phone] Amber Ramon WATER PUMP SERVICER, TIRE CHANGER-C Unavailable Theo Alford MD Primary Care Provider Encounter Details Date Type Department Care Team (Late st Contact Info) Description 04/13/2021 MyChart Message Enc [facility] [address] [place] [address] Jose Kumar MD [address] [place] [address] CPAP has arrived Social History Tobacco Use Types Packs/Day Years [...] on file documented as of this encounter Progress Notes * Jose Kumar MD - 04/13/2021 5:56 PM CST I have responded to patient through my chart * Jolie Hernandez MA - 04/13/2021 1:12 PM CST See attachment * Jose Kumar MD - 04/13/2021 11:39 AM CST I have responded to patient through my chart * Jolie Hernandez MA - 04/13/2021 11:25 AM CST Please respond to pt documented in this encounter Plan of Treatment Not on file documented as of this encounter Visit Diagnoses Not on filedocumented in this encounter Additional Health Concerns Infection Onset Date Last Indicated Resolved Time COVID-19 Rule Out 04/08/2022 04/08/2022 04/08/2022 8:52 PM CPAS Parainfluenza 04/08/2022 04/08/2022 04/18/2022 12: 33 AM CPAS Assessment Noted Time PHQ-9 Depression Total Score: 0 01/14/20 10:06 AM CDT documented as of this encounter Care Teams Back Stayer Relationship Specialty Start Date End Date Danielito Miles MD [address] [place] [phone] PCP - General FAMILY PRACTICE 11/17/17 09/25/23 Theo Alford MD [address] [place] [address] PCP - General INTERNAL MEDICINE 09/26/23 Hermilo Renee MD [address] [place] [phone] INTERNAL MEDICINE 05/26/21 Mikel Portillo MD [address] [place] [phone] Consulting Physician CARDIOVASCULAR DISEASE 12/01/21 Jose Kumar MD [address] [place] [address] Consulting Physician PULMONARY DISEASE 12/03/21 Amber Ramon APRN, TIRE CHANGER-C [address] [phone] NURSE PRACTITIONER 12/03/21 documented as of this encounter
--- OUTSIDE RECORDS SUMMARY | 2024-07-03 08:51 | XMS_ITS | Encounter Summary ---
Author Organization [facility] Address [facility] [place] [address] Care Team Providers Care Gm Video Name Role Phone Danielito Miles MD Primary Care Provider Hermilo Renee MD Unavailable Mikel Portillo MD Unavailable Unavailabl e Jose Kumar MD Unavailable [phone] Amber Ramon CORPORATION SECRETARY, INVESTIGATIVE AGENT-C Unavailable Theo Alford MD Primary Care Provider Encounter Details Date Type Department Care Team (Late st Contact Info) Description 12/13/2021 MyChart Message Enc [facility] [address] [place] [address] Jose Kumar MD [address] [place] [address] vitamin D-3 Social History Tobacco Use Types Packs/Day Years [...] Rule Out 04/08/2022 04/08/2022 04/08/2022 8:52 PM SEAT MENDER Parainfluenza 04/08/2022 04/08/2022 04/18/2022 12: 33 AM SEAT MENDER Assessment Noted Time PHQ-9 Depression Total Score: 0 01/14/20 21 10:06 AM CDT documented as of this encounter Care Teams Gm Video Relationship Specialty Start Date End Date Danielito Miles MD [address] [place] [phone] PCP - General FAMILY PRACTICE 11/17/17 09/25/23 Theo Alford MD [address] [place] [address] PCP - General INTERNAL MEDICINE 09/26/23 Hermilo Renee MD [address] [place] [phone] INTERNAL MEDICINE 05/26/21 Mikel Portillo MD [address] [place] [phone] Consulting Physician CARDIOVASCULAR DISEASE 12/01/21 Jose Kumar MD [address] [place] [address] Consulting Physician PULMONARY DISEASE 12/03/21 Amber Ramon, CELESTINA, INVESTIGATIVE AGENT-C [address] [id number] [place] [address] NURSE PRACTITIONER 12/03/21 documented as of this encounter
--- OUTSIDE RECORDS SUMMARY | 2024-07-03 08:51 | XMS_ITS | Encounter Summary ---
Author Organization [facility] Address [facility] [place] [address] Care Team Providers Care Photo Editor Name Role Phone Danielito Miles MD Primary Care Provider [phone] Hermilo Renee MD Unavailable Mikel Portillo MD Unavailable Unavailabl e Jose Kumar MD Unavailable [phone] Amber Ramon BEAMING INSPECTOR, PROFESSIONAL SKATEBOARDER-C Unavailable Theo Alford MD Primary Care Provider [phone] Encounter Details Date Type Department Care Team (Late st Contact Info) Description 08/10/2021 MyChart Message Enc [facility] [address] [place] [address] Jose Kumar MD [address] [place] [address] July 23 CPAP results Social History Tobacco Use Types Packs/Day [...] suspected to have Coronavirus/COVID-19? No / Unsure 08/11/2021 1:16 PM CDT documented as of this encounter Plan of Treatment Not on file documented as of this encounter Visit Diagnoses Not on filedocumented in this encounter Additional Health Concerns Infection Onset Date Last Indicated Resolved Time COVID-19 Rule Out 04/08/2022 04/08/2022 04/08/2022 8:52 PM WIRE DRAWING MACHINE TENDER Parainfluenza 04/08/2022 04/08/2022 04/18/2022 12: 33 AM WIRE DRAWING MACHINE TENDER Assessment Noted Time PHQ-9 Depression Total Score: 0 01/14/20 21 10:06 AM CDT documented as of this encounter Care Teams Photo Editor Relationship Specialty Start Date End Date Danielito Miles MD [address] [place] [phone] PCP - General FAMILY PRACTICE 11/17/17 09/25/23 Theo Alford MD [address] [place] [address] PCP - General INTERNAL MEDICINE 09/26/23 Hermilo Renee MD [address] [place] [phone] INTERNAL MEDICINE 05/26/21 Mikel Portillo MD [address] [place] [phone] Consulting Physician CARDIOVASCULAR DISEASE 12/01/21 Jose Kumar MD [address] [place] [address] Consulting Physician PULMONARY DISEASE 12/03/21 Amber Ramon, CELESTINA, PROFESSIONAL SKATEBOARDER-C [address] [id number] [place] [address] NURSE PRACTITIONER 12/03/21 documented as of this encounter
--- OUTSIDE RECORDS SUMMARY | 2024-07-03 08:51 | XMS_ITS | Clinical Summary ---
Author Organization [facility] Address [facility] [place] [address] Care Team Providers Care Magnetometer Operator Name Role Phone Hermilo Renee MD Unavailable Mikel Portillo MD Unavailable Unavailabl Jose Ferguson MD Unavailable [phone] Amber Ramon APRN, NP-C Unavailable Theo Alford MD Primary Care Provider Allergies Active Allergy Reactions Criticality Noted Date Comments Beta Adrenergic Blockers Other (see comment) bradycardia Hydromorphone Rash Low 06/07/2021 Hydrocodone Other (see comment) 02/13/2018 constipation Hydrocodone-Acetaminophe n Other (see comment) Low 02/13/2018 constipation constipation Morphine Other (see comment) Low 06/23/2021 bowels lock up Penicillins Rash Low 02/13/2018 Tramadol Other (see comment) 02/13/2018 constipation Medications amLODIPine (NORVASC) 2.5 MG tablet Take 2.5 mg by mouth daily. Active betamethasone dipropionate 0.05 % cream Apply topically as needed. Active Calcium Carb-Cholecalcif pasquale (CALCIUM 1000 + D OR) Take by mouth daily. Active Cod Liver Oil 1000 MG Cap Take 2 tablets by mouth daily. Active coenzyme Q10 (CO Q-10) 50 MG capsule Take 100 mg by mouth daily. Active CPAP DEVICE, DME, 1 Device by Does not apply route. Smart CPAP. Low pressure 5. High pressure 20. Obstructive sleep apnea. Active finasteride (PROSCAR) 5 MG tablet Take 5 mg by mouth daily. Takes in the evening Active fish oil (OMEGA-3 FATTY ACID) 1000 MG Cap capsule Take 1,000 mg by mouth daily. Active Garlic (GARLIQUE OR) Take by mouth daily. Active levothyroxine (SYNTHROID) 100 MCG tablet Take 100 mcg by mouth nightly at bedtime. Active magnesium oxide (MAG-OX) 400 (240 Mg) MG tablet Take 400 mg by mouth daily. Active metFORMIN (GLUCOPHAGE) 500 MG tablet Take 500 mg by mouth 2 (two) times daily with meals. Active rosuvastatin (CRESTOR) 20 MG tablet Take 20 mg by mouth daily. Active tamsulosin (FLOMAX) 0.4 MG Cap Take 0.4 mg by mouth daily. Takes in the evening Active B complex-C Cap capsule Take 1 capsule by mouth daily. Active vitamin E 100 UNIT capsule Take 134 Units by mouth daily. Active zinc gluconate 50 MG Tab Take 25 mg by mouth daily. Active valsartan (DIOVAN) 80 MG tablet Take 80 mg by mouth daily. Active montelukast (SINGULAIR) 10 MG tablet Take 10 mg by mouth nightly at bedtime. Active Albuterol Sulfate (PROAIR HFA IN) Inhale into the lungs as needed. Active insulin glargine (LANTUS) 100 UNIT/ML injection (VIAL) Inject 40 Units into the skin nightly at bedtime. 2 Active aspirin 81 MG chewable tablet Chew 1 tablet (81 mg total) by mouth daily. 30 tablet 2 2 Active famotidine (PEPCID) 20 MG tablet Take 1 tablet (20 mg total) by mouth every 12 (twelve) hours. 60 tablet 2 Active senna-docusate (SENOKOT-S) 8.6-50 MG tablet Take 2 tablets by mouth nightly at bedtime. 60 tablet 2 Active dicyclomine (BENTYL) 20 MG tablet Take 1 tablet (20 mg total) by mouth every 6 (six) hours as needed (pain). 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 Sinus pause 01/01/2021 Aftercare following surgery 12/05/2019 Trigger thumb, left thumb 02/01/2019 HTN (hypertension) HLD (hyperlipidemia) Resolved Problems Problem Noted Date Diagnosed Date Resolved Date Snoring 01/16/2021 04/25/2021 Immunizations Name Administration Dates Next Due Fluzone High Dose - >Age 65 (Prefilled Syringe) 02/06/2018 Influenza Adult (Generic) 03/05/2020,02/12/2019, 02/06/2018 Pneumococcal (Pneumovax 23) 05/07/2018 Pneumococcal (Prevnar 13) 05/04/2017 Shingrix 12/01/2020,05/02/2020 Family History Medical History Relation Comments Stent Cardiac Brother 1 pacemaker Brother 1 No Known Problems Brother 2 No Known Problems Brother 3 Hyperlipidemia Father Hypertension Father Dementia Mother pacemaker Mother Coronary artery disease Other Diabetes Other Hyperlipidemia Other Hypertension Other No Known Problems Sister 1 No Known Problems Sister 2 No Known Problems Sister 3 Relation Status Comments Brother 1 Alive Brother 2 Alive Brother 3 Alive Father Mother Other Sister 1 Alive Sister 2 Alive Sister 3 Alive Social History Tobacco Use Types Packs/Day Years Used Date Smoking Tobacco: Former Cigarettes 2 15 1 961 - 1975 Smokeless Tobacco: Never Tobacco Cessation:Counseling Given: Not Answered Alcohol Use [...] Sign Reading Time Taken Comments Blood Pressure 119/55 05/04/2022 2:30 AM CONVEYOR LINE BAKERY WORKER Pulse 88 05/04/2022 2:30 AM CONVEYOR LINE BAKERY WORKER Temperature 37.1 C (98.7 F) 05/03/2022 11:59 AM CONVEYOR LINE BAKERY WORKER Respiratory Rate 21 05/04/2022 2:30 AM CONVEYOR LINE BAKERY WORKER Oxygen Saturation 99% 05/04/2022 2:30 AM CONVEYOR LINE BAKERY WORKER Inhaled Oxygen Concentration - - Weight 81.2 kg (179 lb) 05/03/2022 11:59 AM CONVEYOR LINE BAKERY WORKER Height 167.6 cm (5' 6 ) 05/03/2022 11:59 AM CONVEYOR LINE BAKERY WORKER Body Mass Index 28.89 05/03/2022 11:59 AM CONVEYOR LINE BAKERY WORKER Plan of Treatment Health Maintenance Due Date Last Done Comments Hepatitis C 11/04/1963 DTaP, Tdap and Td Vaccines (1 - Tdap) 1964 Annual Medicare Wellness Visit 2010 RSV Immunization or 60+ Years (1 - 1-dose 75+ series) 2020 COVID-19 Vaccine ( season) 2023 07/30/2021, 07/23/2021, 08/07/2020, Additional history exists Influenza Adult (#1) 2024 02/05/2022, 12/31/2021, 01/22/2021, Additional history exists Pneumococcal Vaccine: 65+ Years Completed 05/07/2018, 05/04/2017 Zoster Vaccines Completed 12/01/2020, 05/02/2020 Meningococcal B Vaccine Aged Out No l onger eligible based on patient's age to complete this topic Meningococcal Vaccine Aged Out No valentin payton eligible based on patient's age to complete this topic RSV Immunizations Under 20 Months Aged Out No longer eligible based on patient's age to complete this topic Goals Goal Patient Goal Type Associated Problems Recent Progress Patient-Stated? Author Patient will return to prior living situation and remain independent in ADLs upon discharge from hospital Lifestyle Jaylene العلي, RN Safety Patient/family will have appropriate support at home upon discharge Lifestyle Jaylene العلي RN Insurance [employer] Advance Directives * Full Code (Latest Code Status on File) Date Activated Date Inactivated Comments 04/10/2022 10:12 AM 04/16/2022 2:37 PM * Full Code Date Activated Date Inactivated Comments 03/29/2022 12:08 PM 04/06/2022 6:08 PM * Full Code Date Activated Date Inactivated Comments 02/07/2022 5:07 PM 02/09/2022 6:15 PM Care Teams Magnetometer Operator Relationship Specialty Start Date End Date Theo Alford MD [address] [place] [phone] PCP - General INTERNAL MEDICINE 09/26/23 Hermilo Renee MD INTERNAL MEDICINE 05/26/21 Mikel Portillo MD Consulting Physician CARDIOVASCULAR DISEASE 12/01/21 Jose Kumar MD [address] [place] [address] Consulting Physician PULMONARY DISEASE 12/03/21 Amber Ramon APRN, DRAWING IN HAND-C [address] [facility] [address] [phone] NURSE PRACTITIONER 12/03/21
--- OUTSIDE RECORDS SUMMARY | 2024-07-03 08:51 | XMS_ITS | Encounter Summary ---
Author Organization [facility] Address [facility]6 [place] [address] Care Team Providers Care Estimator And Drafter Supervisor Name Role Phone Danielito Miles MD Primary Care Provider [phone] Hermilo Renee MD Unavailable Mikel Portillo MD Unavailable Unavailabl e Jose Kumar MD Unavailable [phone] Amber Ramon APRN, PRODUCT SUPPORT TECHNICIAN-C Unavailable Theo Alford MD Primary Care Provider Encounter Details Date Type Department Care Team (Latest Contact Info) Description 01/05/2022 Global Qu[employer]t Message [facility] [place] [address] Jeff Oliveros MD [address] [place] [address] appointment Social History Tobacco Use Types Packs/Day Years [...] Rule Out 04/08/2022 04/08/2022 04/08/2022 8:52 PM RAIL FLAW DETECTOR OPERATOR Parainfluenza 04/08/2022 04/08/2022 04/18/2022 12: 33 AM RAIL FLAW DETECTOR OPERATOR Assessment Noted Time PHQ-9 Depression Total Score: 0 01/14/20 21 10:06 AM CDT documented as of this encounter Care Teams Estimator And Drafter Supervisor Relationship Specialty Start Date End Date Danielito Miles MD [address] [place] [phone] PCP - General FAMILY PRACTICE 11/17/17 09/25/23 Theo Alford MD [address] [place] [address] PCP - General INTERNAL MEDICINE 09/26/23 Hermilo Renee MD [address] [place] [phone] INTERNAL MEDICINE 05/26/21 Mikel Portillo MD [address] [place] [phone] Consulting Physician CARDIOVASCULAR DISEASE 12/01/21 Jose Kumar MD [address] [place] [address] Consulting Physician PULMONARY DISEASE 12/03/21 Amber Ramon, CELESTINA, PRODUCT SUPPORT TECHNICIAN-C [address] [id number] [place] [address] NURSE PRACTITIONER 12/03/21 documented as of this encounter
--- OUTSIDE RECORDS SUMMARY | 2024-07-03 08:51 | XMS_ITS | Encounter Summary ---
Author Organization [facility] Address [facility] [place] [address] Care Team Providers Care Stereoptic Projection Topographer Name Role Phone Danielito Miles MD Primary Care Provider Hermilo Renee MD Unavailable Mikel Portillo MD Unavailable Unavailabl e Jose Kumar MD Unavailable [phone] Amber Ramon BINDING STITCHER, TILE BURNER-C Unavailable Theo Alford MD Primary Care Provider Encounter Details Date Type Department Care Team (Late st Contact Info) Description 04/13/2021 MyChart Message Enc [facility] [address] [place] [address] Jose Kumar MD [address] [place] [address] MRI Social History Tobacco Use Types Packs/Day Years [...] Notes * Jose Kumar MD - 04/13/2021 11:38 AM CST I have responded to patient through my chart T SORTER * Jolie Hernandez MA - 04/13/2021 11:25 AM CST Please respond to pt T SORTER documented in this encounter Plan of Treatment Not on file documented as of this encounter Visit Diagnoses Not on filedocumented in this encounter Additional Health Concerns Infection Onset Date Last Indicated Resolved Time COVID-19 Rule Out 04/08/2022 04/08/2022 04/08/2022 8:52 PM SHEET SORTER Parainfluenza 04/08/2022 04/08/2022 04/18/2022 12: 33 AM SHEET SORTER Assessment Noted Time PHQ-9 Depression Total Score: 0 01/14/20 21 10:06 AM CDT documented as of this encounter Care Teams Stereoptic Projection Topographer Relationship Specialty Start Date End Date Danielito Miles MD [address] [place] [phone] PCP - General FAMILY PRACTICE 11/17/17 09/25/23 Theo Alford MD [address] [place] [phone] PCP - General INTERNAL MEDICINE 09/26/23 Hermilo Renee MD [address] [place] [phone] INTERNAL MEDICINE 05/26/21 Mikel Portillo MD [address] [place] [phone] Consulting Physician CARDIOVASCULAR DISEASE 12/01/21 Jose Kumar MD [address] [place] [address] Consulting Physician PULMONARY DISEASE 12/03/21 Amber Ramon, BINDING STITCHER, TILE BURNER-C [address] [address] NURSE PRACTITIONER 12/03/21 documented as of this encounter
--- OUTSIDE RECORDS SUMMARY | 2024-07-03 08:51 | XMS_ITS | Encounter Summary ---
Author Organization [facility] Address [facility] [place] [address] Care Team Providers Care Wild Animal Caretaker Name Role Phone Danielito Miles MD Primary Care Provider Hermilo Renee MD Unavailable Mikel Portillo MD Unavailable Unavailabl e Jose Kumar MD Unavailable [phone] Amber Ramon REAL ESTATE ASSESSOR, ATTENDING PATHOLOGIST-C Unavailable [phone] Theo Alford MD Primary Care Provider Encounter Details Date Type Department Care Team (Late st Contact Info) Description 06/03/2021 MyChart Message Enc [facility] Medical [facility] [address] [place] [address] Jose Kumar MD [address] [place] [address] CPAP machine results Social History Tobacco Use Types Packs/Day [...] Rule Out 04/08/2022 04/08/2022 04/08/2022 8:52 PM WELT ROUGHER Parainfluenza 04/08/2022 04/08/2022 04/18/2022 12: 33 AM WELT ROUGHER Assessment Noted Time PHQ-9 Depression Total Score: 0 01/14/20 21 10:06 AM CDT documented as of this encounter Care Teams Wild Animal Caretaker Relationship Specialty Start Date End Date Danielito Miles MD [address] [place], [place] [phone] PCP - General FAMILY PRACTICE 11/17/17 09/25/23 Theo Alford MD [address] [place] [address] PCP - General INTERNAL MEDICINE 09/26/23 Hermilo Renee MD [address] [place], [place] [phone] INTERNAL MEDICINE 05/26/21 Mikel Portillo MD [address] [place] [phone] Consulting Physician CARDIOVASCULAR DISEASE 12/01/21 Jose Kumar MD [address] [place] [address] Consulting Physician PULMONARY DISEASE 12/03/21 Amber Ramon, REAL ESTATE ASSESSOR, ATTENDING PATHOLOGIST-C [address] [facility] [address] [place] [phone] NURSE PRACTITIONER 12/03/21 documented as of this encounter
--- OUTSIDE RECORDS SUMMARY | 2024-07-03 08:51 | XMS_ITS | Encounter Summary ---
Author Organization [facility] Address [facility] [place] [address] Care Team Providers Care All Around Presser Name Role Phone Danielito Miles MD Primary Care Provider Hermilo Renee MD Unavailable Mikel Potrillo MD Unavailable Unavailabl e Jose Kumar MD Unavailable [phone] Amber Ramon MANAGER TRAINING, INFORMATICS PHYSICIAN-C Unavailable Thoe Alford MD Primary Care Provider Encounter Details Date Type Department Care Team (Late st Contact Info) Description 12/15/2021 MyChart Message Enc [facility] Medical [facility] [address] [place] [address] Jose Kumar MD [address] [place] [address] Test results from polish maker Social History Tobacco Use Types Packs/Day Years [...] Progress Notes * Jose Kumar MD - 12/17/2021 11:44 AM CDT Patient has been seen in the clinic * Jolie Hernandez MA - 12/15/2021 10:01 AM CDT Please see results and previous mychart encounter documented in this encounter Plan of Treatment Not on file documented as of this encounter Visit Diagnoses Not on filedocumented in this encounter Additional Health Concerns Infection Onset Date Last Indicated Resolved Time COVID-19 Rule Out 04/08/2022 04/08/2022 04/08/2022 8:52 PM RUG CUTTER HELPER Parainfluenza 04/08/2022 04/08/2022 04/18/2022 12: 33 AM RUG CUTTER HELPER Assessment Noted Time PHQ-9 Depression Total Score: 0 01/14/20 21 10:06 AM CDT documented as of this encounter Care Teams All Around Presser Relationship Specialty Start Date End Date Danielito Miles MD [address] [place] [phone] PCP - General FAMILY PRACTICE 11/17/17 09/25/23 Theo Alford MD [address] [place] [phone] PCP - General INTERNAL MEDICINE 09/26/23 Hermilo Renee MD [address] [place] [phone] INTERNAL MEDICINE 05/26/21 Mikel Portillo MD [address] [place] [phone] Consulting Physician CARDIOVASCULAR DISEASE 12/01/21 Jose Kumar MD [address] [place] [address] Consulting Physician PULMONARY DISEASE 12/03/21 Amber Ramon, MANAGER TRAINING, INFORMATICS PHYSICIAN-C [address] [facility] [address] [place] [address] NURSE PRACTITIONER 12/03/21 documented as of this encounter
[2024-07-03 08:58] LABS: Add Urine Microscopic? YES; Appearance Urine Clear (Clear); Bilirubin Urine Negative (Negative); Blood Urine Negative (Negative); Color Urine Yellow (Yellow); Glucose Urine UA Negative (Negative); Ketones Urine Negative (Negative); Leukocyte Esterase Ur 1+ LEU/UL (Negative); Nitrate Urine Negative (Negative); Protein Urine Negative (Negative); Specific Grav Ur 1.025 (1.010-1.020); Urobilinogen Urine 0.2 mg/dL (0.2-1.0); pH Urine 5.5 (5.0-8.0)
[2024-07-03 09:03] LABS: Creatinine Urine 115.84 mg/dL (40-278); MALB Creatinine Ratio 53.6 mg/g (0-30); Microalbumin Urine Random 62.2 mg/L
[2024-07-03 09:20] LABS: Bacteria Urine Trace /hpf; Calcium Oxalate Crystals Urine Present /hpf; RBC Urine None seen /hpf (0-2)
[2024-07-03 09:34] LABS: Hemoglobin A1C 6.1 % (<5.7)
[2024-07-03 10:52] LABS: Alanine Aminotransferase 35 U/L (16-63); Albumin Level 3.9 g/dL (3.4-5.0); Alkaline Phosphatase 44 U/L (46-116); Anion Gap 7 mmol/L (4-12); Aspartate Amino Transferase 20 U/L (15-37); Bilirubin,Total 0.6 mg/dL (0.00-1.00); Blood Urea Nitrogen 15 mg/dL (7-18); Calcium 8.8 mg/dL (8.5-10.1); Carbon Dioxide 28 mmol/L (21-32); Chloride 100 mmol/L (98-108); Cholesterol 100 mg/dL (0-200); Creatine Kinase 143 U/L (39-308); Estimated Glomerular Filt Rate > 60; Glucose 90 mg/dL (70-99); HDL Direct 40 mg/dL (40-60); LDL Cholesterol Calculated 49 mg/dL (<130); Osmolality Calculated 280 mOsm/kg (285-295); Potassium 4.8 mmol/L (3.5-5.1); Prostate Specific Antigen 0.9 ng/mL (< OR = 4.0); Sodium 135 mmol/L (136-145); Total Protein 6.8 g/dL (6.4-8.2); Triglycerides 56 mg/dL (0-150)
== END 2024-07-03 08:29 | disposition home or self-care (01) ==
PROVIDERS: PCP Internal Medicine; Visit Provider Internal Medicine
DX: E11.65 Type 2 diabetes mellitus with hyperglycemia (principal); E78.2 Mixed hyperlipidemia; N39.0 Urinary tract infection, site not specified; Z12.5 Encounter for screening for malignant neoplasm of prostate
CPT/HCPCS: 36415; 80053; 80061; 81001; 82043; 82550; 83036; 84153; 85027; 87086; G0103

== ENCOUNTER 2024-07-15 11:41 | Outpatient (CLI) | payer MEDICARE, SELFPAY ==
[2024-07-15 13:16] LABS: Free T3 2.05 pg/mL (2.18-3.98); Free T4 Free Thyroxine 1.24 ng/dL (0.76-1.46); Thyroid Stimulating Hormone 1.91 uIU/mL (0.36-3.74)
--- OUTSIDE RECORDS SUMMARY | 2024-07-15 13:42 | XMS_ITS | Encounter Summary ---
Author Organization [facility] Address [address] [place] [address] Care Team Providers Care Associate Automation Engineer Name Role Phone Danielito Miles MD Primary Care Provider eHrmilo Renee MD Unavailable Mikel Portillo MD Unavailable Unavailabl e Jose Kumar MD Unavailable [phone] Amber Ramon CONTROL ROOM TECHNICIAN, LODGING MANAGER-C Unavailable Theo Alford MD Primary Care Provider Encounter Details Date Type Department Care Team (Late st Contact Info) Description 09/29/2018 Abstract SFL CONVERSION [address] [place] [address] , Generic Conversion, Social History Tobacco Use [...] Rule Out 04/08/2022 04/08/2022 04/08/2022 8:52 PM MORGUE KEEPER Parainfluenza 04/08/2022 04/08/2022 04/18/2022 12: 33 AM MORGUE KEEPER documented as of this encounter Care Teams Associate Automation Engineer Relationship Specialty Start Date End Date Danielito Miles MD [address] [place] [phone] PCP - General FAMILY PRACTICE 11/17/17 09/25/23 Theo Alford MD [address] [place] [phone] PCP - General INTERNAL MEDICINE 09/26/23 Hermilo Renee MD [address] [place] [phone] INTERNAL MEDICINE 05/26/21 Mikel Portillo MD [address] [place] [phone] Consulting Physician CARDIOVASCULAR DISEASE 12/01/21 Jose Kumar MD [address] [place] [address] Consulting Physician PULMONARY DISEASE 12/03/21 Amber Rmaon APRN, LODGING MANAGER-C [address] [address] NURSE PRACTITIONER 12/03/21 documented as of this encounter
--- OUTSIDE RECORDS SUMMARY | 2024-07-15 13:42 | XMS_ITS | Encounter Summary ---
Author Organization [facility] Address [facility] [place] [address] Care Team Providers Care Materials Handling Equipment Operator Name Role Phone Danielito Miles MD Primary Care Provider Hermilo Renee MD Unavailable Mikel Portillo MD Unavailable Unavailabl e Jose Kumar MD Unavailable [phone] Amber Ramon APRN, COCONUT COOKER-C Unavailable Thoe Alford MD Primary Care Provider Encounter Details Date Type Department Care Team (Late st Contact Info) Description 02/11/2022 Seeo Message Enc [facility]eld [address] [place], [place] [address] Lucina Barba, COLEEN [address] [facility] 2nd Floor - [address] [place] [address] CT results Social History Tobacco [...] Rule Out 04/08/2022 04/08/2022 04/08/2022 8:52 PM ENCHILADA MAKER Parainfluenza 04/08/2022 04/08/2022 04/18/2022 12: 33 AM ENCHILADA MAKER Assessment Noted Time PHQ-9 Depression Total Score: 0 01/14/20 21 10:06 AM CDT documented as of this encounter Care Teams Materials Handling Equipment Operator Relationship Specialty Start Date End Date Danielito Miles MD [address] [place] [phone] PCP - General FAMILY PRACTICE 11/17/17 09/25/23 Theo Alford MD [address] [place] [phone] PCP - General INTERNAL MEDICINE 09/26/23 Hermilo Renee MD [address] [place] [phone] INTERNAL MEDICINE 05/26/21 Mikel Portillo MD [address] [place] [phone] Consulting Physician CARDIOVASCULAR DISEASE 12/01/21 Jose Kumar MD [address] [place] [address] Consulting Physician PULMONARY DISEASE 12/03/21 Amber Ramon, BOILER RELINER, COCONUT COOKER-C [address] [facility] [address] [phone] NURSE PRACTITIONER 12/03/21 documented as of this encounter
--- OUTSIDE RECORDS SUMMARY | 2024-07-15 13:42 | XMS_ITS | Encounter Summary ---
Author Organization [facility] Address [facility]6 [place] [address] Care Team Providers Care Guest Request Runner Name Role Phone Danielito Miles MD Primary Care Provider Hermilo Renee MD Unavailable Mikel Portillo MD Unavailable Unavailabl e Jose Kumar MD Unavailable [phone] Amber Ramon APRN, ROTO GRAVURE PRESS OPERATOR-C Unavailable Theo Alford MD Primary Care Provider [phone] Reason for Visit * Reason Onset Date Comments Results 01/07/2021 Encounter Details Date Type Department Care Team (Late st Contact Info) Description 01/07/2021 Telephone [facility] [address] [place] [address] eJff Oliveros MD [address] [place] [address] Results Social History Tobacco Use [...] Rule Out 04/08/2022 04/08/2022 04/08/2022 8:52 PM OCCUPATIONAL MEDICINE SPECIALIST Parainfluenza 04/08/2022 04/08/2022 04/18/2022 12: 33 AM OCCUPATIONAL MEDICINE SPECIALIST documented as of this encounter Care Teams Guest Request Runner Relationship Specialty Start Date End Date Danielito Miles MD [address] [place] [phone] PCP - General FAMILY PRACTICE 11/17/17 09/25/23 Theo Alford MD [address] [place] [phone] PCP - General INTERNAL MEDICINE 09/26/23 Hermilo Renee MD [address] [place] [phone] INTERNAL MEDICINE 05/26/21 Mikel Portillo MD [address] [place] [phone] Consulting Physician CARDIOVASCULAR DISEASE 12/01/21 Jose Kumar MD [address] [place] [phone] Consulting Physician PULMONARY DISEASE 12/03/21 Amber Ramon APRN, ROTO GRAVURE PRESS OPERATOR-C [address] [phone] NURSE PRACTITIONER 12/03/21 documented as of this encounter
--- OUTSIDE RECORDS SUMMARY | 2024-07-15 13:42 | XMS_ITS | Encounter Summary ---
Author Organization [facility] Address [facility]6 [place] [address] Care Team Providers Care Pharmacy Scheduler Name Role Phone Danielito Miles MD Primary Care Provider [phone] Hermilo Renee MD Unavailable Mikel Portillo MD Unavailable Unavailabl e Jose Kumar MD Unavailable [phone] Amber Ramon APRN, DIET KITCHEN COOK-C Unavailable [phone] Theo Alford MD Primary Care Provider [phone] Encounter Details Date Type Department Care Team (Late st Contact Info) Description 04/07/2022 Hospital Follow-up Call [facility] Cardiovascular Care Unit [address] [place] [address] Shannon Asher, GILBERTO Social History Tobacco Use Types Packs/Day Years Used Date Smoking Tobacco: Former Cigarettes 2 08 05 96 - 1975 Smokeless Tobacco: Never Alcohol [...] Coronavirus/COVID-19? No / Unsure 04/08/2022 11:57 AM SHIPPING PROCESSOR documented as of this encounter Functional Status [...] Assessment Author Status No 03/29/2022 6:10 AM SHIPPING PROCESSOR Activ e * RETIRED Are you blind or do you have serious difficulty seeing, even when wearing glasses? Answer Date of Assessment Author Status No 03/29/2022 6:10 AM SHIPPING PROCESSOR Activ e * Do you have serious [...] Date Author Status No 03/29/2022 6:10 AM SHIPPING PROCESSOR Maritza Manzo RN Active documented in this [...] Rule Out 04/08/2022 04/08/2022 04/08/2022 8:52 PM SHIPPING PROCESSOR Parainfluenza 04/08/2022 04/08/2022 04/18/2022 12: 33 AM SHIPPING PROCESSOR Assessment Noted Time PHQ-9 Depression Total Score: 0 01/14/20 21 10:06 AM CDT documented as of this encounter Care Teams Pharmacy Scheduler Relationship Specialty Start Date End Date Danielito Miles MD [address] [place] [phone] PCP - General FAMILY PRACTICE 11/17/17 09/25/23 Theo Alford MD [address] [place] [phone] PCP - General INTERNAL MEDICINE 09/26/23 Hermilo Renee MD [address] [place] [phone] INTERNAL MEDICINE 05/26/21 Mikel Portillo MD [address] [place] [phone] Consulting Physician CARDIOVASCULAR DISEASE 12/01/21 Jose Kumar MD [address] [place] [address] Consulting Physician PULMONARY DISEASE 12/03/21 Amber Ramon, CELESTINA, DIET KITCHEN COOK-C [address] [facility] [address] [place] [address] NURSE PRACTITIONER 12/03/21 documented as of this encounter
--- OUTSIDE RECORDS SUMMARY | 2024-07-15 13:42 | XMS_ITS | Encounter Summary ---
Author Organization [facility] Address [facility]6 [place] [address] Care Team Providers Care Oil Well Cable Tool Operator Name Role Phone Danielito Miles MD Primary Care Provider [phone] Hermilo Renee MD Unavailable Mikel Portillo MD Unavailable Unavailabl e Jose Kumar MD Unavailable [phone] Amber Ramon APRN, SCHOOL COUNSELOR-C Unavailable [phone] Theo Alford MD Primary Care Provider Encounter Details Date Type Department Care Team ([facility] st Contact Info) Description 01/05/2021 [employer] Message Enc [facility] eld [address] [place] [address] Amber Ramon APRN, SCHOOL COUNSELOR-C [address] [facility] [address] [place] [address] RE: Other Social History Tobacco [...] Rule Out 04/08/2022 04/08/2022 04/08/2022 8:52 PM TRACK PATROL Parainfluenza 04/08/2022 04/08/2022 04/18/2022 12: 33 AM TRACK PATROL documented as of this encounter Care Teams Oil Well Cable Tool Operator Relationship Specialty Start Date End Date Danielito Miles MD [address] [place] [phone] PCP - General FAMILY PRACTICE 11/17/17 09/25/23 Theo Alford MD [address] [place] [phone] PCP - General INTERNAL MEDICINE 09/26/23 Hermilo Renee MD [address] [place] [phone] INTERNAL MEDICINE 05/26/21 Mikel Portillo MD [address] [place] [phone] Consulting Physician CARDIOVASCULAR DISEASE 12/01/21 Jose Kumar MD [address] [place] [address] Consulting Physician PULMONARY DISEASE 12/03/21 Amber Ramon, COLLOID MILL OPERATOR, SCHOOL COUNSELOR-C [address] [facility] [address] [place] [phone] NURSE PRACTITIONER 12/03/21 documented as of this encounter
--- OUTSIDE RECORDS SUMMARY | 2024-07-15 13:42 | XMS_ITS | Referral Summary ---
Author Organization [facility] Address [address] [place] [address] Care Team Providers Care Scale Mechanic Name Role Phone Danielito Miles MD Primary Care Provider [phone] Aureliano Sweeney MD Unavailable [phone] Allergies Active Allergy Reactions Criticality Noted Date [...] mcg tablet Take 100 mcg by mouth wood model builder before breakfast Active metFORMIN (GLUCOPHAGE) 500 mg [...] Take 1,000 mg by mouth daily Active wyos7-xkx-joi-fis h oil-L.casei 120 mg-400 mg -4 billion cell capsule Take 460 mg by mouth daily after lunch Active Active Problems Problem Noted Date Diagnosed Date Lower leg mass, right 07/08/2021 Overview (07/08/2021): Added automatically from request for surgery [id number] Assessment & Plan (07/29/2021 11:24 AM CDT): [...] therapy. Assessment & Plan (06/25/2021 8:16 AM ECONOMETRICIAN): Impression: Chronic diabetes mellitus controlled with insulin. Patient reports his last A1c was 7.3. Plan: Medications reviewed, no changes made. Continue glucose monitoring and management as per primary care. Pain and swelling of right lower extremity 06/25 Assessment & Plan (06/25/2021 8:38 AM ECONOMETRICIAN): Impression: Patient complains of swelling to his [...] management. Assessment & Plan (06/25/2021 8:17 AM ECONOMETRICIAN): Impression: Chronic stable hypertension, controlled medications. Blood [...] on file Legal Sex Male 7:24 PM ECONOMETRICIAN Gender Identity Not on file Sexual Orientation [...] Sweeney MD LAB BLOOD ORDERABLES Final Result [facility] [address] [facility] Department [place] [address] from Last 3 Months or Most Recently Relevant to Health Maintenance Insurance MEDICARE HMO/PPO [facility] MEDICARE HMO/PPO MEDICARE HMO/PPO Care Teams Scale Mechanic Relationship Specialty Start Date End Date Danielito Miles MD PCP - General Family Medicine 05/21/21 Aureliano Sweeney MD [address] [facility] [address] [address] Surgeon Surgery 07/15/21
--- OUTSIDE RECORDS SUMMARY | 2024-07-15 13:43 | XMS_ITS | Encounter Summary ---
Author Organization [facility] Address [facility]6 [place] [address] Care Team Providers Care Compact Assembler Name Role Phone Danielito Miles MD Primary Care Provider Hermilo Renee MD Unavailable Mikel Portillo MD Unavailable Unavailabl e Jose Kumar MD Unavailable [phone] Amber Ramon SHREDDER TENDER PEAT, SUPERVISOR BOAT OUTFITTING-C Unavailable Theo Alford MD Primary Care Provider Encounter Details Date Type Department Care Team (Late st Contact Info) Description 12/04/2021 MyChart Message Enc [facility] Medical Group Pul[facility]ty Clinic [address] [place] [address] Jose Kumar MD [address] [place] [address] bicycle rides Social History Tobacco [...] Please add patient to my schedule in [place] for December 09 and give him the date and time. * Jolie Hernandez MA - 12/06/2021 10:10 AM CDT See other DEXMA message as well documented in this encounter Plan of Treatment Not on file documented as of this encounter Visit Diagnoses Not on filedocumented in this encounter Additional Health Concerns Infection Onset Date Last Indicated Resolved Time COVID-19 Rule Out 04/08/2022 04/08/2022 04/08/2022 8:52 PM SEED LABORATORY ASSISTANT Parainfluenza 04/08/2022 04/08/2022 04/18/2022 12: 33 AM SEED LABORATORY ASSISTANT Assessment Noted Time PHQ-9 Depression Total Score: 0 01/14/20 21 10:06 AM CDT documented as of this encounter Care Teams Compact Assembler Relationship Specialty Start Date End Date Danielito Miles MD [address] [place] [phone] PCP - General FAMILY PRACTICE 11/17/17 09/25/23 Theo Alford MD [address] [place] [address] PCP - General INTERNAL MEDICINE 09/26/23 Hermilo Renee MD [address] [place] [phone] INTERNAL MEDICINE 05/26/21 Mikel Portillo MD [address] [place] [phone] Consulting Physician CARDIOVASCULAR DISEASE 12/01/21 Jose Kumar MD [address] [place] [address] Consulting Physician PULMONARY DISEASE 12/03/21 Amber Ramon, SHREDDER TENDER PEAT, SUPERVISOR BOAT OUTFITTING-C [address] [phone] NURSE PRACTITIONER 12/03/21 documented as of this encounter
--- OUTSIDE RECORDS SUMMARY | 2024-07-15 13:43 | XMS_ITS | Encounter Summary ---
Author Organization [facility] Address [facility] [place] [address] Care Team Providers Care Geomorphologist Name Role Phone Danielito Miles MD Primary Care Provider [phone] Hermilo Renee MD Unavailable Mikel Portillo MD Unavailable Unavailabl e Jose Kumar MD Unavailable [phone] Amber Ramon BUFF WHEEL FABRICATOR, MILL PLATFORM SUPERVISOR-C Unavailable [phone] Theo Alford MD Primary Care Provider [phone] Encounter Details Date Type Department Care Team (Late st Contact Info) Description 12/15/2021 MyChart Message Enc [facility] Medical [facility] [address] [place] [address] Jose Kumar MD [address] [place] [address] Test results from supervisor patching Social History Tobacco Use Types Packs/Day Years [...] Rule Out 04/08/2022 04/08/2022 04/08/2022 8:52 PM MRI TECH Parainfluenza 04/08/2022 04/08/2022 04/18/2022 12: 33 AM MRI TECH Assessment Noted Time PHQ-9 Depression Total Score: 0 01/14/20 21 10:06 AM CDT documented as of this encounter Care Teams Geomorphologist Relationship Specialty Start Date End Date Danielito Miles MD [address] [place] [phone] PCP - General FAMILY PRACTICE 11/17/17 09/25/23 Theo Alford MD [address] [place] [phone] PCP - General INTERNAL MEDICINE 09/26/23 Hermilo Renee MD [address] [place] [phone] INTERNAL MEDICINE 05/26/21 Mikel Portillo MD [address] [place] [phone] Consulting Physician CARDIOVASCULAR DISEASE 12/01/21 Jose Kumar MD [address] [place] [address] Consulting Physician PULMONARY DISEASE 12/03/21 Amber Ramon, BUFF WHEEL FABRICATOR, MILL PLATFORM SUPERVISOR-C [address] [facility] [address] [place] [address] NURSE PRACTITIONER 12/03/21 documented as of this encounter
--- OUTSIDE RECORDS SUMMARY | 2024-07-15 13:43 | XMS_ITS | Encounter Summary ---
Author Organization [facility] Address [facility] [place] [address] Care Team Providers Care Liquor Merchant Name Role Phone Danielito Miles MD Primary Care Provider Hermilo Renee MD Unavailable Mikel Portillo MD Unavailable Unavailabl e Jose Kumar MD Unavailable [phone] Amber Ramon NATIONAL SALES REPRESENTATIVE, SEASONAL WAREHOUSE ASSOCIATE-C Unavailable Theo Alford MD Primary Care Provider Encounter Details Date Type Department Care Team (Late st Contact Info) Description 08/10/2021 MyChart Message Enc [facility] [address] [place] [address] Jose Kumar MD [address] [place] [address] July 23 CPAP results Social [...] Rule Out 04/08/2022 04/08/2022 04/08/2022 8:52 PM TAILOR HELPER Parainfluenza 04/08/2022 04/08/2022 04/18/2022 12: 33 AM TAILOR HELPER Assessment Noted Time PHQ-9 Depression Total Score: 0 01/14/20 21 10:06 AM CDT documented as of this encounter Care Teams Liquor Merchant Relationship Specialty Start Date End Date Danielito Miles MD [address] [place] [phone] PCP - General FAMILY PRACTICE 11/17/17 09/25/23 Theo Alford MD [address] [place] [address] PCP - General INTERNAL MEDICINE 09/26/23 Hermilo Renee MD [address] [place] [phone] INTERNAL MEDICINE 05/26/21 Mikel Portillo MD [address] [place] [phone] Consulting Physician CARDIOVASCULAR DISEASE 12/01/21 Jose Kumar MD [address] [place] [address] Consulting Physician PULMONARY DISEASE 12/03/21 Amber Ramon, CELESTINA, SEASONAL WAREHOUSE ASSOCIATE-C [address] [id number] [place] [address] NURSE PRACTITIONER 12/03/21 documented as of this encounter
--- OUTSIDE RECORDS SUMMARY | 2024-07-15 13:43 | XMS_ITS | Encounter Summary ---
Author Organization [facility] Address [facility] [place] [address] Care Team Providers Care Sales And Marketing Agent Name Role Phone Danielito Miles MD Primary Care Provider Hermilo Renee MD Unavailable Mikel Portillo MD Unavailable Unavailabl e Jose Kumar MD Unavailable [phone] Amber Ramon TALENT ACQUISITION PROGRAM MANAGER, STRIKER OFF-C Unavailable Theo Alford MD Primary Care Provider [phone] Encounter Details Date Type Department Care Team (Late st Contact Info) Description 12/13/2021 MyChart Message Enc [facility] Medical [facility] [address] [place] [address] Jose Kumar MD [address] [place] [address] chest x-ray Social History Tobacco [...] Rule Out 04/08/2022 04/08/2022 04/08/2022 8:52 PM DISC PAD PLATE FILLER Parainfluenza 04/08/2022 04/08/2022 04/18/2022 12: 33 AM DISC PAD PLATE FILLER Assessment Noted Time PHQ-9 Depression Total Score: 0 01/14/20 21 10:06 AM CDT documented as of this encounter Care Teams Sales And Marketing Agent Relationship Specialty Start Date End Date Danielito Miles MD [address] [place] [phone] PCP - General FAMILY PRACTICE 11/17/17 09/25/23 Theo Alford MD [address] [place] [address] PCP - General INTERNAL MEDICINE 09/26/23 Hermilo Renee MD [address] [place] [phone] INTERNAL MEDICINE 05/26/21 Mikel Portillo MD [address] [place] [phone] Consulting Physician CARDIOVASCULAR DISEASE 12/01/21 Jose Kumar MD [address] [place] [address] Consulting Physician PULMONARY DISEASE 12/03/21 Amber Ramon, CELESTINA, STRIKER OFF-C [address] [id number] [place] [address] NURSE PRACTITIONER 12/03/21 documented as of this encounter
--- OUTSIDE RECORDS SUMMARY | 2024-07-15 13:43 | XMS_ITS | Clinical Summary ---
Author Organization [facility] Address [address] [place] [phone] Phone Care Team Providers Care Jewel Hole Rough Opener Name Role Phone Danielito Miles MD Primary [...] needed for Shortness of Breath. Active cpap associate medical director Low pressure 5. High pressure 20. 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, S/P CABG on [...] on file Legal Sex Male 7:19 PM LOAD MANAGER Gender Identity Not on file Sexual Orientation Not on file Last Filed Vital Signs Vital Sign Reading Time Taken Comments Blood Pressure 116/58 05/19/2022 11:47 AM LOAD MANAGER Pulse 96 05/07/2022 10:27 AM LOAD MANAGER Temperature 36.4 C (97.6 F) 05/19/2022 11:47 AM LOAD MANAGER Respiratory Rate 18 05/07/2022 10:27 AM LOAD MANAGER Oxygen Saturation 95% 05/07/2022 10:27 AM LOAD MANAGER Inhaled Oxygen Concentration - - Weight 78.5 kg (173 lb) 05/19/2022 11:47 AM LOAD MANAGER Height 167.6 cm (5' 6 ) 05/19/2022 11:47 AM LOAD MANAGER Body Mass Index 27.92 05/19/2022 11:47 AM LOAD MANAGER Plan of Treatment Health Maintenance Due Date [...] 12/01/2020, 05/02/2020 Medical Devices Implanted Type Area Sports Marketing Internship Device Identifier Shelf Expiration Date Model / Serial / Lot Clip Ti Med/Lg 3200 [place] [facility] [place] [id number] Implanted:Qty: 1 on 05/05/2022 by Wilber Lockett MD at [facility] N/A: Abdomen TELEFLEX- WECK CLOSURE SYS 12/23/2026 [id number] / / [id number] Clip Ti Med/Lg 3200 [place] [facility] [place] [id number] Implanted:Qty: 1 on 05/05/2022 by Wilber Lockett MD at [facility] N/A: Abdomen TELEFLEX- WECK CLOSURE SYS 11/29/2026 [id number] / / [id number] Hemostatic Surg Powder 3013sp - [id number] Implanted:Qty: 1 on 05/05/2022 by Wilber Lockett MD at [facility] Hemostatic N/A: Abdomen J[employer]J- [employer] 06/22/2023 [id number] / / [id number] Insurance AETNA O [facility] RX AETNA Medicare Part D Advance Directives For more information, please contact: [phone] * Full Code (Latest Code Status on File) Date Activated Date Inactivated Comments 05/06/2022 7:51 PM 05/07/2022 7:28 PM * Full Code Date Activated Date Inactivated Comments 05/04/2022 8:44 AM 05/06/2022 7:50 PM * Default Full Code - Needs Discussion Date Activated Date Inactivated Comments 05/04/2022 4:41 AM 05/04/2022 8:43 AM Care Teams Jewel Hole Rough Opener Relationship Specialty Start Date End Date Danielito Miles MD [address] [place] [address] PCP - General Family Practice 05/04/22
--- OUTSIDE RECORDS SUMMARY | 2024-07-15 13:43 | XMS_ITS | Encounter Summary ---
Author Organization [facility] Address [facility] [place] [address] Care Team Providers Care Network Diagnostic Support Specialist Name Role Phone Danielito Miles MD Primary Care Provider Hermilo Renee MD Unavailable Mikel Portillo MD Unavailable Unavailabl e Jose Kumar MD Unavailable [phone] Amber Ramon ENVIRONMENTAL SCIENCES PROFESSOR, PRICING MANAGER-C Unavailable Theo Alford MD Primary Care Provider [phone] Encounter Details Date Type Department Care Team (Late st Contact Info) Description 12/13/2021 MyChart Message Enc [facility] Medical Group Pul[facility]ology Specialty Clinic [address] [place] [address] Jose Kumar MD [address] [place] [address] vitamin D-3 Social History Tobacco [...] Rule Out 04/08/2022 04/08/2022 04/08/2022 8:52 PM MULTIPLE PUNCH PRESS OPERATOR Parainfluenza 04/08/2022 04/08/2022 04/18/2022 12: 33 AM MULTIPLE PUNCH PRESS OPERATOR Assessment Noted Time PHQ-9 Depression Total Score: 0 01/14/20 21 10:06 AM CDT documented as of this encounter Care Teams Network Diagnostic Support Specialist Relationship Specialty Start Date End Date Danielito Miles MD [address] [place] [phone] PCP - General FAMILY PRACTICE 11/17/17 09/25/23 Theo Alford MD [address] [place] [address] PCP - General INTERNAL MEDICINE 09/26/23 Hermilo Renee MD [address] [place] [phone] INTERNAL MEDICINE 05/26/21 Mikel Portillo MD [address] [place] [phone] Consulting Physician CARDIOVASCULAR DISEASE 12/01/21 Jose Kumar MD [address] [place] [address] Consulting Physician PULMONARY DISEASE 12/03/21 Amber Ramon, CELESTINA, PRICING MANAGER-C [address] [id number] [place] [address] NURSE PRACTITIONER 12/03/21 documented as of this encounter
--- OUTSIDE RECORDS SUMMARY | 2024-07-15 13:43 | XMS_ITS | Encounter Summary ---
Author Organization [facility] Address [facility] [place] [address] Care Team Providers Care Health Care Administrator Name Role Phone Danielito Miles MD Primary Care Provider Hermilo Renee MD Unavailable Mikel Portillo MD Unavailable Unavailabl e Jose Kumar MD Unavailable [phone] Amber Ramon BATCH PLANT OPERATOR, CLERICAL GRADER-C Unavailable [phone] Theo Alford MD Primary Care Provider [phone] Encounter Details Date Type Department Care Team (Late st Contact Info) Description 04/13/2021 MyChart Message Enc [facility] Medical Group Pulmonology Specialty Clinic [address] [place] [address] Jose Kumar MD [address] [place] [address] CPAP has arrived Social History [...] have responded to patient through my chart SCHOOL SOCIAL SCIENCE TEACHER * Jolie Hernandez MA - 04/13/2021 1:12 PM CST See attachment SCHOOL SOCIAL SCIENCE TEACHER * Jose Kumar MD - 04/13/2021 11:39 AM CST I have responded to patient through my chart SCHOOL SOCIAL SCIENCE TEACHER * Jolie Hernandez MA - 04/13/2021 11:25 AM CST Please respond to pt SCHOOL SOCIAL SCIENCE TEACHER documented in this encounter Plan of Treatment Not on file documented as of this encounter Visit Diagnoses Not on filedocumented in this encounter Additional Health Concerns Infection Onset Date Last Indicated Resolved Time COVID-19 Rule Out 04/08/2022 04/08/2022 04/08/2022 8:52 PM HIGH SCHOOL SOCIAL SCIENCE TEACHER Parainfluenza 04/08/2022 04/08/2022 04/18/2022 12: 33 AM HIGH SCHOOL SOCIAL SCIENCE TEACHER Assessment Noted Time PHQ-9 Depression Total Score: 0 01/14/20 10:06 AM CDT documented as of this encounter Care Teams Health Care Administrator Relationship Specialty Start Date End Date Danielito Miles MD [address] [place] [phone] PCP - General FAMILY PRACTICE 11/17/17 09/25/23 Theo Alford MD [address] [place] [address] PCP - General INTERNAL MEDICINE 09/26/23 Hermilo Renee MD [address] [place] [phone] INTERNAL MEDICINE 05/26/21 Mikel Portillo MD [address] [place] [phone] Consulting Physician CARDIOVASCULAR DISEASE 12/01/21 Jose Kumar MD [address] [place] [address] Consulting Physician PULMONARY DISEASE 12/03/21 Amber Ramon APRN, CLERICAL GRADER-C [address] [address] NURSE PRACTITIONER 12/03/21 documented as of this encounter
--- OUTSIDE RECORDS SUMMARY | 2024-07-15 13:43 | XMS_ITS | Encounter Summary ---
Author Organization [facility] Address [facility] [place] [address] Care Team Providers Care Sound Equipment Mechanic Name Role Phone aDnielito Miles MD Primary Care Provider Hermilo Renee MD Unavailable Mikel Portillo MD Unavailable Unavailabl e Jose Kumar MD Unavailable [phone] Amber Ramon CENTRAL SUPPLY CLERK, CASHIER WRAPPER-C Unavailable Theo Alford MD Primary Care Provider [phone] Encounter Details Date Type Department Care Team (Late st Contact Info) Description 06/03/2021 MyChart Message Enc [facility] Medical Group Pulmonology Specialty Clinic [address] [place] [address] Jose Kumar MD [address] [place] [address] CPAP machine results Social History [...] Rule Out 04/08/2022 04/08/2022 04/08/2022 8:52 PM DESIGN PROJECT MANAGER Parainfluenza 04/08/2022 04/08/2022 04/18/2022 12: 33 AM DESIGN PROJECT MANAGER Assessment Noted Time PHQ-9 Depression Total Score: 0 01/14/20 21 10:06 AM CDT documented as of this encounter Care Teams Sound Equipment Mechanic Relationship Specialty Start Date End Date Danielito Miles MD [address] [place], [place] [phone] PCP - General FAMILY PRACTICE 11/17/17 09/25/23 Theo Alford MD [address] [place] [address] PCP - General INTERNAL MEDICINE 09/26/23 Hermilo Renee MD [address] [place], [place] [phone] INTERNAL MEDICINE 05/26/21 Mikel Portillo MD [address] [place] [phone] Consulting Physician CARDIOVASCULAR DISEASE 12/01/21 Jose Kumar MD [address] [place] [address] Consulting Physician PULMONARY DISEASE 12/03/21 Amber Ramon, CENTRAL SUPPLY CLERK, CASHIER WRAPPER-C [address] [facility] [address] [place] [phone] NURSE PRACTITIONER 12/03/21 documented as of this encounter
--- OUTSIDE RECORDS SUMMARY | 2024-07-15 13:43 | XMS_ITS | Encounter Summary ---
Author Organization [facility] Address [facility]6 [place] [address] Care Team Providers Care Multiple Needle Stitcher Name Role Phone Danielito Miles MD Primary Care Provider Hermilo Renee MD Unavailable Mikel Portillo MD Unavailable Unavailabl e Jose Kumar MD Unavailable [phone] Amber Ramon AUTISM TUTOR, OIL DIPPER-C Unavailable [phone] Theo Alford MD Primary Care Provider Encounter Details Date Type Department Care Team (Late st Contact Info) Description 12/04/2021 MyChart Message Enc [facility] Medical Group Pulmonology Specialty Clinic [address] [place] [address] Jose Kumar MD [address] [place] [address] bicycle rides continued Social History [...] Rule Out 04/08/2022 04/08/2022 04/08/2022 8:52 PM SMASH HAND Parainfluenza 04/08/2022 04/08/2022 04/18/2022 12: 33 AM SMASH HAND Assessment Noted Time PHQ-9 Depression Total Score: 0 01/14/20 21 10:06 AM CDT documented as of this encounter Care Teams Multiple Needle Stitcher Relationship Specialty Start Date End Date Danielito Miles MD [address] [place] [phone] PCP - General FAMILY PRACTICE 11/17/17 09/25/23 Theo Alford MD [address] [place] [address] PCP - General INTERNAL MEDICINE 09/26/23 Hermilo Renee MD [address] [place] [phone] INTERNAL MEDICINE 05/26/21 Mikel Portillo MD [address] [place] [phone] Consulting Physician CARDIOVASCULAR DISEASE 12/01/21 Jose Kumar MD [address] [place] [address] Consulting Physician PULMONARY DISEASE 12/03/21 Amber Ramon, CELESTINA, OIL DIPPER-C [address] [id number] [place] [address] NURSE PRACTITIONER 12/03/21 documented as of this encounter
--- OUTSIDE RECORDS SUMMARY | 2024-07-15 13:43 | XMS_ITS | Clinical Summary ---
Author Organization [facility] Address [address] [place] [address] Care Team Providers Care Domestic Travel Consultant Name Role Phone Danielito Miles MD Primary Care Provider [phone] Aureliano Sweeney MD Unavailable [phone] Allergies Active Allergy Reactions Criticality Noted Date [...] mcg tablet Take 100 mcg by mouth recessing machine operator before breakfast Active metFORMIN (GLUCOPHAGE) 500 mg [...] Take 1,000 mg by mouth daily Active ptyq2-ntg-skk-fis h oil-L.casei 120 mg-400 mg -4 billion cell capsule Take 460 mg by mouth daily after lunch Active Active Problems Problem Noted Date Diagnosed Date Lower leg mass, right 07/08/2021 Overview (07/08/2021): Added automatically from request for surgery [id number] Assessment & Plan (07/29/2021 11:24 AM CDT): [...] therapy. Assessment & Plan (06/25/2021 8:16 AM MERCHANT MILLER): Impression: Chronic diabetes mellitus controlled with insulin. Patient reports his last A1c was 7.3. Plan: Medications reviewed, no changes made. Continue glucose monitoring and management as per primary care. Pain and swelling of right lower extremity 06/25 Assessment & Plan (06/25/2021 8:38 AM MERCHANT MILLER): Impression: Patient complains of swelling to his [...] management. Assessment & Plan (06/25/2021 8:17 AM MERCHANT MILLER): Impression: Chronic stable hypertension, controlled medications. Blood [...] degenerative problems causes SOB, seeing specialist at [facility]. soon Sleep apnea CPAP [place] (hard of hearing) mild Arthritis Hypothyroid on [...] on file Legal Sex Male 7:24 PM MERCHANT MILLER Gender Identity Not on file Sexual Orientation [...] MD LAB BLOOD ORDERABLES Final Result [place] [address] [facility] Department [place] [address] from Last 3 Months or Most Recently Relevant to Health Maintenance Insurance MEDICARE HMO/PPO MEDICARE HMO/PPO MEDICARE HMO/PPO Care Teams Domestic Travel Consultant Relationship Specialty Start Date End Date Danielito Miles MD PCP - General Family Medicine 05/21/21 Aureliano Sweeney MD [address] [facility] [address] [address] Surgeon Surgery 07/15/21
--- OUTSIDE RECORDS SUMMARY | 2024-07-15 13:43 | XMS_ITS | Encounter Summary ---
Author Organization [facility] Address [facility]6 [place] [address] Care Team Providers Care Vendor Analyst Name Role Phone Danielito Miles MD Primary Care Provider Hermilo Renee MD Unavailable Mikel Portillo MD Unavailable Unavailabl e Jose Kumar MD Unavailable [phone] Amber Ramon APRN, CONVENIENCE RECYCLE CENTER TECH-C Unavailable Theo Alford MD Primary Care Provider Encounter Details Date Type Department Care Team (Latest Contact Info) Description 01/05/2022 Clean TeQt Message [facility] [place] [address] Jeff Oliveros MD [address] [place] [address] appointment Social History Tobacco Use [...] Rule Out 04/08/2022 04/08/2022 04/08/2022 8:52 PM TECHNICAL SALES SPECIALIST Parainfluenza 04/08/2022 04/08/2022 04/18/2022 12: 33 AM TECHNICAL SALES SPECIALIST Assessment Noted Time PHQ-9 Depression Total Score: 0 01/14/20 21 10:06 AM CDT documented as of this encounter Care Teams Vendor Analyst Relationship Specialty Start Date End Date Danielito Miles MD [address] [place] [phone] PCP - General FAMILY PRACTICE 11/17/17 09/25/23 Theo Alford MD [address] [place] [address] PCP - General INTERNAL MEDICINE 09/26/23 Hermilo Renee MD [address] [place] [phone] INTERNAL MEDICINE 05/26/21 Mikel Portillo MD [address] [place] [phone] Consulting Physician CARDIOVASCULAR DISEASE 12/01/21 Jose Kumar MD [address] [place] [address] Consulting Physician PULMONARY DISEASE 12/03/21 Amber Ramon, CELESTINA, CONVENIENCE RECYCLE CENTER TECH-C [address] [id number] [place] [address] NURSE PRACTITIONER 12/03/21 documented as of this encounter
--- OUTSIDE RECORDS SUMMARY | 2024-07-15 13:43 | XMS_ITS | Encounter Summary ---
Author Organization [facility] Address [facility] [place] [address] Care Team Providers Care Health Careers Instructor Name Role Phone Danielito Miles MD Primary Care Provider Hermilo Renee MD Unavailable Mikel Portillo MD Unavailable Unavailabl e Jose Kumar MD Unavailable [phone] Amber Ramon DIRECTOR TRADE, LOCK OPERATOR-C Unavailable Theo Alford MD Primary Care Provider Encounter Details Date Type Department Care Team (Late st Contact Info) Description 04/13/2021 MyChart Message Enc [facility] Medical Group Pulmonology Specialty Clinic [address] [place] [address] Jose Kumar MD [address] [place] [address] MRI Social History Tobacco Use [...] have responded to patient through my chart NERY OPERATOR ALKYLATION * Jolie Hernandez MA - 04/13/2021 11:25 AM CST Please respond to pt NERY OPERATOR ALKYLATION documented in this encounter Plan of Treatment Not on file documented as of this encounter Visit Diagnoses Not on filedocumented in this encounter Additional Health Concerns Infection Onset Date Last Indicated Resolved Time COVID-19 Rule Out 04/08/2022 04/08/2022 04/08/2022 8:52 PM REFINERY OPERATOR ALKYLATION Parainfluenza 04/08/2022 04/08/2022 04/18/2022 12: 33 AM REFINERY OPERATOR ALKYLATION Assessment Noted Time PHQ-9 Depression Total Score: 0 01/14/20 21 10:06 AM CDT documented as of this encounter Care Teams Health Careers Instructor Relationship Specialty Start Date End Date Danielito Miles MD [address] [place] [phone] PCP - General FAMILY PRACTICE 11/17/17 09/25/23 Theo Alford MD [address] [place] [phone] PCP - General INTERNAL MEDICINE 09/26/23 Hermilo Renee MD [address] [place] [phone] INTERNAL MEDICINE 05/26/21 Mikel Portillo MD [address] [place] [phone] Consulting Physician CARDIOVASCULAR DISEASE 12/01/21 Jose Kumar MD [address] [place] [address] Consulting Physician PULMONARY DISEASE 12/03/21 Amber Ramon, DIRECTOR TRADE, LOCK OPERATOR-C [address] [address] NURSE PRACTITIONER 12/03/21 documented as of this encounter
--- OUTSIDE RECORDS SUMMARY | 2024-07-15 13:43 | XMS_ITS | Clinical Summary ---
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 Shock (CMS/HCC [facility]) 02/04/2022 Obstructive sleep apnea (adult) (pediatric) 05/2020 [...] Comments Blood Pressure 119/55 05/04/2022 2:30 AM COMPLIANCE INTERN Pulse 88 05/04/2022 2:30 AM COMPLIANCE INTERN Temperature 37.1 C (98.7 F) 05/03/2022 11:59 AM COMPLIANCE INTERN Respiratory Rate 21 05/04/2022 2:30 AM COMPLIANCE INTERN Oxygen Saturation 99% 05/04/2022 2:30 AM COMPLIANCE INTERN Inhaled Oxygen Concentration - - Weight 81.2 kg (179 lb) 05/03/2022 11:59 AM COMPLIANCE INTERN Height 167.6 cm (5' 6 ) 05/03/2022 11:59 AM COMPLIANCE INTERN Body Mass Index 28.89 05/03/2022 11:59 AM COMPLIANCE INTERN Plan of Treatment Health Maintenance Due Date [...] 5:07 PM 02/09/2022 6:15 PM Care Teams Account Auditor Relationship Specialty Start Date End Date Theo Alford MD [address] [place] [phone] PCP - General INTERNAL MEDICINE 09/26/23 Hermilo Renee MD INTERNAL MEDICINE 05/26/21 Mikel Portillo MD Consulting Physician CARDIOVASCULAR DISEASE 12/01/21 Jose Kumar MD [address] [place] [address] Consulting Physician PULMONARY DISEASE 12/03/21 Amber Ramon APRN, IP/MOSAIC TECHNICIAN-C [address] [facility] [address] [phone] NURSE PRACTITIONER 12/03/21
== END 2024-07-15 11:42 | disposition home or self-care (01) ==
LOC: CHSLAB 11:42
PROVIDERS: PCP Internal Medicine; Visit Provider Internal Medicine
DX: E03.9 Hypothyroidism, unspecified (principal)
CPT/HCPCS: 36415; 84439; 84443; 84481

== ENCOUNTER 2024-10-04 09:25 | Outpatient (CLI) | payer MEDICARE, SELFPAY ==
--- OUTSIDE RECORDS SUMMARY | 2024-10-04 09:32 | XMS_ITS | Clinical Summary ---
Author Organization [facility] Address [address] [place] [phone] Phone Care Team Providers Care Automotive Machinist Apprentice Name Role Phone Danielito Miles MD Primary Care Provider [phone] Allergies Active Allergy Reactions Criticality Noted Date [...] needed for Shortness of Breath. Active cpap faculty i on call medical assistant Low pressure 5. High pressure 20. 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, S/P CABG on [...] on file Legal Sex Male 7:19 PM COMPUTING CONSULTANT Gender Identity Not on file Sexual Orientation Not on file Last Filed Vital Signs Vital Sign Reading Time Taken Comments Blood Pressure 116/58 05/19/2022 11:47 AM COMPUTING CONSULTANT Pulse 96 05/07/2022 10:27 AM COMPUTING CONSULTANT Temperature 36.4 C (97.6 F) 05/19/2022 11:47 AM COMPUTING CONSULTANT Respiratory Rate 18 05/07/2022 10:27 AM COMPUTING CONSULTANT Oxygen Saturation 95% 05/07/2022 10:27 AM COMPUTING CONSULTANT Inhaled Oxygen Concentration - - Weight 78.5 kg (173 lb) 05/19/2022 11:47 AM COMPUTING CONSULTANT Height 167.6 cm (5' 6) 05/19/2022 11:47 AM COMPUTING CONSULTANT Body Mass Index 27.92 05/19/2022 11:47 AM COMPUTING CONSULTANT Plan of Treatment Health Maintenance Due Date [...] 12/01/2020, 05/02/2020 Medical Devices Implanted Type Area Bucket Chucker Device Identifier Shelf Expiration Date Model / Serial / Lot Clip Ti Med/Lg 3200 - [facility] - [id number] Implanted:Qty: 1 on 05/05/2022 by Wilber Lockett MD at [facility] N/A: Abdomen TELEFLEX- WECK CLOSURE SYS 12/23/2026 [id number] / / [id number] Clip Ti Med/Lg 3200 - [facility] - [id number] Implanted:Qty: 1 on 05/05/2022 by Wilber Lockett MD at [facility] N/A: Abdomen TELEFLEX- WECK CLOSURE SYS 11/29/2026 [id number] / / [id number] Hemostatic Surg Powder 3013sp - [id number] Implanted:Qty: 1 on 05/05/2022 by Wilber Lockett MD at [facility] Hemostatic N/A: Abdomen J[employer]J- [employer] 06/22/2023 [id number] / / [id number] Insurance AETNA O [facility] RX AETNA Medicare Part D Advance Directives For more information, please contact: [phone] * Full Code (Latest Code Status on File) Date Activated Date Inactivated Comments 05/06/2022 7:51 PM 05/07/2022 7:28 PM * Full Code Date Activated Date Inactivated Comments 05/04/2022 8:44 AM 05/06/2022 7:50 PM * Default Full Code - Needs Discussion Date Activated Date Inactivated Comments 05/04/2022 4:41 AM 05/04/2022 8:43 AM Care Teams Automotive Machinist Apprentice Relationship Specialty Start Date End Date Danielito Miles MD [address] [place] [address] PCP - General Family Practice 05/04/22
--- OUTSIDE RECORDS SUMMARY | 2024-10-04 09:32 | XMS_ITS | Referral Summary ---
Author Organization [facility] Address [address] [place] [address] Care Team Providers Care Ground Instructor Basic Name Role Phone Danielito Miles MD Primary Care Provider [phone] Aureliano Sweeney MD Unavailable [phone] Allergies Active Allergy Reactions Criticality Noted Date [...] mcg tablet Take 100 mcg by mouth felt hat steamer before breakfast Active metFORMIN (GLUCOPHAGE) 500 mg [...] Take 1,000 mg by mouth daily Active rcnq3-ejm-wwj-fis h oil-L.casei 120 mg-400 mg -4 billion cell capsule Take 460 mg by mouth daily after lunch Active Active Problems Problem Noted Date Diagnosed Date Lower leg mass, right 07/08/2021 Overview (07/08/2021): Added automatically from request for surgery [id number] Assessment & Plan (07/29/2021 11:24 AM CDT): [...] therapy. Assessment & Plan (06/25/2021 8:16 AM TAPE CALENDER): Impression: Chronic diabetes mellitus controlled with insulin. Patient reports his last A1c was 7.3. Plan: Medications reviewed, no changes made. Continue glucose monitoring and management as per primary care. Pain and swelling of right lower extremity 06/25 Assessment & Plan (06/25/2021 8:38 AM TAPE CALENDER): Impression: Patient complains of swelling to his [...] management. Assessment & Plan (06/25/2021 8:17 AM TAPE CALENDER): Impression: Chronic stable hypertension, controlled medications. Blood [...] on file Legal Sex Male 7:24 PM TAPE CALENDER Gender Identity Not on file Sexual Orientation [...] 10:26 AM CDT Height 167.6 cm (5' 6) 07/29/2021 10:26 AM CDT Body Mass Index [...] Sweeney MD LAB BLOOD ORDERABLES Final Result [facility] [address] [facility] Department [place] [address] from Last 3 Months or Most Recently Relevant to Health Maintenance Insurance MEDICARE HMO/PPO [facility] MEDICARE HMO/PPO MEDICARE HMO/PPO Care Teams Ground Instructor Basic Relationship Specialty Start Date End Date Danielito Miles MD PCP - General Family Medicine 05/21/21 Aureliano Sweeney MD [address] [facility] [address] [place] [address] Surgeon Surgery 07/15/21
--- OUTSIDE RECORDS SUMMARY | 2024-10-04 09:32 | XMS_ITS | Clinical Summary ---
Author Organization [facility] Address [address] [place] [address] Care Team Providers Care Supervisory It Specialist Name Role Phone Danielito Miles MD Primary Care Provider [phone] Aureliano Sweeney MD Unavailable [phone] Allergies Active Allergy Reactions Criticality Noted [...] mcg tablet Take 100 mcg by mouth wedding planning internship before breakfast Active metFORMIN (GLUCOPHAGE) 500 mg [...] Take 1,000 mg by mouth daily Active oeng3-qqp-cdx-fis h oil-L.casei 120 mg-400 mg -4 billion cell capsule Take 460 mg by mouth daily after lunch Active Active Problems Problem Noted Date Diagnosed Date Lower leg mass, right 07/08/2021 Overview (07/08/2021): Added automatically from request for surgery [id number] Assessment & Plan (07/29/2021 11:24 AM CDT): [...] therapy. Assessment & Plan (06/25/2021 8:16 AM DEODORIZER OPERATOR): Impression: Chronic diabetes mellitus controlled with insulin. Patient reports his last A1c was 7.3. Plan: Medications reviewed, no changes made. Continue glucose monitoring and management as per primary care. Pain and swelling of right lower extremity 06/25 Assessment & Plan (06/25/2021 8:38 AM DEODORIZER OPERATOR): Impression: Patient complains of swelling to his [...] management. Assessment & Plan (06/25/2021 8:17 AM DEODORIZER OPERATOR): Impression: Chronic stable hypertension, controlled medications. Blood [...] degenerative problems causes SOB, seeing specialist at [facility]. soon Sleep apnea CPAP [place] (hard of hearing) mild Arthritis Hypothyroid on [...] on file Legal Sex Male 7:24 PM DEODORIZER OPERATOR Gender Identity Not on file Sexual Orientation [...] Vaccine ( season) 2023, 07/10/2020 Influenza Vaccine (Season Ended) 2024 03/05/2020, 02/12/2019, 02/06/2018 Pneumococcal vaccine 65+ Completed 05/07/2018, [...] MD LAB BLOOD ORDERABLES Final Result [facility] [address] [facility] Department [place] [address] from Last 3 Months or Most Recently Relevant to Health Maintenance Insurance MEDICARE HMO/PPO MEDICARE HMO/PPO MEDICARE HMO/PPO Care Teams Supervisory It Specialist Relationship Specialty Start Date End Date Danielito Miles MD PCP - General Family Medicine 05/21/21 Aureliano Sweeney MD [address] [facility] [address] [place] [address] Surgeon Surgery 07/15/21
[2024-10-04 10:11] LABS: Appearance Urine Clear (Clear); Bilirubin Urine Negative (Negative); Blood Urine Negative (Negative); Glucose Urine UA Negative (Negative); Ketones Urine Trace (Negative); Leukocyte Esterase Ur Negative (Negative); Nitrate Urine Negative (Negative); Protein Urine Trace (Negative); Specific Grav Ur 1.025 (1.010-1.020)
[2024-10-04 10:17] LABS: Add Urine Microscopic? YES; Color Urine Dark Orange (Yellow)
[2024-10-04 10:24] LABS: Hemoglobin A1C 6.4 % (<5.7)
[2024-10-04 10:26] LABS: Alanine Aminotransferase 22 U/L (6-50); Albumin Level 4.5 g/dL (3.5-5.1); Alkaline Phosphatase 36 U/L (38-126); Anion Gap 7 mmol/L (4-12); Aspartate Amino Transferase 28 U/L (17-59); Bilirubin,Total 0.9 mg/dL (0.2-1.3); Blood Urea Nitrogen 32 mg/dL (9-20); Calcium 9.1 mg/dL (8.4-10.2); Carbon Dioxide 27 mmol/L (22-30); Chloride 101 mmol/L (98-107); Cholesterol 104 mg/dL (0-200); Estimated Glomerular Filt Rate > 60; Glucose 132 mg/dL (65-110); HDL Direct 31 mg/dL; LDL Cholesterol Calculated 52 mg/dL (<130); Osmolality Calculated 288 mOsm/kg (285-295); Potassium 4.8 mmol/L (3.4-5.0); Sodium 135 mmol/L (137-145); Total Protein 6.8 g/dL (6.3-8.2); Triglycerides 107 mg/dL (<150)
== END 2024-10-04 09:26 | disposition home or self-care (01) ==
LOC: CHSLAB 09:26
PROVIDERS: PCP Internal Medicine; Visit Provider Internal Medicine
DX: E11.9 Type 2 diabetes mellitus without complications (principal); E78.2 Mixed hyperlipidemia
CPT/HCPCS: 36415; 80053; 80061; 81001; 83036

== ENCOUNTER 2024-12-13 10:05 | Outpatient (CLI) | payer MEDICARE, SELFPAY ==
--- NOTE | ~2024-12-13 | CT_ITS ---
EXAMINATION: CT abdomen pelvis w con DATE: 12/13/2024 12:13 INDICATION: Left lower quadrant abdominal pain. Constipation for 2 days TECHNIQUE: Computed tomography (CT) of the abdomen and pelvis was performed without intravenous contrast. The dose-length product was 319.96 mGy-cm. COMPARISON: 07/07/2023 FINDINGS: Small opacities in the lower lungs likely atelectasis or scarring. Cholecystectomy. Liver, spleen, adrenal glands, pancreas are unremarkable. No hydronephrosis. There are a few too small to characterize low-attenuation lesions in the kidneys. Abdominal aorta is not aneurysmal but is partially calcified. No enlarged lymph nodes in the abdomen or pelvis. Concentric thickening of the marsh of the mildly distended bladder. Small amount of fat stranding about the bladder. Prostate gland is moderately enlarged and partially calcified. Large amount of stool. No dilated bowel loops. Multilevel degenerative change in the visualized spine most prominent in the lower thoracic and lower lumbar spine. Appendix is not identified. No free fluid in the abdomen or pelvis. IMPRESSION: 1. Concentric thickening of the marsh of the mildly distended bladder. Small amount of surrounding fat stranding. Differential includes incomplete bladder wall distention, sequelae from an enlarged prostate gland or cystitis. 2. Cholecystectomy Reviewed, dictated and finalized at location Q. IMPRESSION: 1. Concentric thickening of the marsh of the mildly distended bladder. Small am ount of surrounding fat stranding. Differential includes incomplete bladder wal l distention, sequelae from an enlarged prostate gland or cystitis. 2. Cholecystectomy
--- NOTE | ~2024-12-13 | XR_ITS ---
EXAMINATION: XR abdomen obstructive series DATE: 12/13/2024 10:23 INDICATION: Left lower quadrant abdominal pain TECHNIQUE: 3 images of the abdomen were obtained COMPARISON: None. FINDINGS: Small opacities in the lower lungs. 1 cm calcified granuloma in the left lower lobe. There are a few less than 1.0 cm calcifications projecting over the pelvis which may represent phleboliths, however, a distal ureteral stone or bladder stone or possible. Bones appear osteopenic. Moderate to large amount of air in nondilated large bowel. There are a few distended small bowel loops which are air filled. Moderate to large amount of stool. IMPRESSION: 1. There are a few distended air-filled small bowel loops. Differential includes ileus or developing small bowel obstruction. If symptoms persist or worsen, consider a CT of the abdomen and pelvis for further assessment. Reviewed, dictated and finalized at location Q. IMPRESSION: 1. There are a few distended air-filled small bowel loops. Differential include s ileus or developing small bowel obstruction. If symptoms persist or worsen, c onsider a CT of the abdomen and pelvis for further assessment.
--- OUTSIDE RECORDS SUMMARY | 2024-12-13 10:09 | XMS_ITS | Encounter Summary ---
Author Organization [facility] Address [facility] [place] [address] Care Team Providers Care Boiler Welder Name Role Phone Danielito Miles MD Primary Care Provider [phone] Hermilo Renee MD Unavailable Mikel Portillo MD Unavailable [phone] Jose Kumar MD Unavailable [phone] Amber Raomn APRN, CREDIT ADJUSTER-C Unavailable Theo Alford MD Primary Care Provider [phone] Encounter Details Date Type Department Care Team (Late st Contact Info) Description 12/04/2021 MyChart Message Enc [facility] [address] [place] [address] Jose Kumar MD [address] [place] [address] bicycle rides Social History Tobacco [...] Please add patient to my schedule in [place] for December 09 and give him the date and time. * Jolie Hernandez MA - 12/06/2021 10:10 AM CDT See other Merkut message as well documented in this encounter Plan of Treatment Not on file documented as of this encounter Visit Diagnoses Not on filedocumented in this encounter Additional Health Concerns Infection Onset Date Last Indicated Resolved Time COVID-19 Rule Out 04/08/2022 04/08/2022 04/08/2022 8:52 PM CLIENT SUCCESS MANAGER Parainfluenza 04/08/2022 04/08/2022 04/18/2022 12: 33 AM CLIENT SUCCESS MANAGER Assessment Noted Time PHQ-9 Depression Total Score: 0 01/14/20 21 10:06 AM CDT documented as of this encounter Care Teams Boiler Welder Relationship Specialty Start Date End Date Danielito Miles MD [address] [place] [phone] PCP - General FAMILY PRACTICE 11/17/17 09/25/23 Theo Alford MD [address] [place] [address] PCP - General INTERNAL MEDICINE 09/26/23 Hermilo Renee MD [address] [place] [phone] INTERNAL MEDICINE 05/26/21 Mikel Portillo MD [address] [place] [address] Consulting Physician CARDIOVASCULAR DISEASE 12/01/21 Jose Kumar MD [address] [place] [address] Consulting Physician PULMONARY DISEASE 12/03/21 Amber Ramon APRN, CREDIT ADJUSTER-C [address] [facility] [address] [place] [phone] NURSE PRACTITIONER 12/03/21 documented as of this encounter
--- OUTSIDE RECORDS SUMMARY | 2024-12-13 10:09 | XMS_ITS | Encounter Summary ---
Author Organization [facility] Address [facility] [place] [address] Care Team Providers Care Composition Weatherboard Applier Name Role Phone Danielito Miles MD Primary Care Provider Hermilo Renee MD Unavailable Mikel Portillo MD Unavailable [phone] Jose Kumar MD Unavailable [phone] Amber Ramon APRN, SPEECH AND DRAMA TEACHER-C Unavailable Theo Alford MD Primary Care Provider [phone] Encounter Details Date Type Department Care Team (Latest Contact Info) Description 01/05/2022 Analyte [facility] Message [facility] [place] [address] Jeff Oliveros MD [address] [place] [address] appointment Social History Tobacco Use [...] Rule Out 04/08/2022 04/08/2022 04/08/2022 8:52 PM MOTOR TUNE UP SPECIALIST Parainfluenza 04/08/2022 04/08/2022 04/18/2022 12: 33 AM MOTOR TUNE UP SPECIALIST Assessment Noted Time PHQ-9 Depression Total Score: 0 01/14/20 21 10:06 AM CDT documented as of this encounter Care Teams Composition Weatherboard Applier Relationship Specialty Start Date End Date Danielito Miles MD [address] [place] [phone] PCP - General FAMILY PRACTICE 11/17/17 09/25/23 Theo Alford MD [address] [place] [address] PCP - General INTERNAL MEDICINE 09/26/23 Hermilo Renee MD [address] [place] [phone] INTERNAL MEDICINE 05/26/21 Mikel Portillo MD [address] [place] [address] Consulting Physician CARDIOVASCULAR DISEASE 12/01/21 Jose Kumar MD [address] [place] [address] Consulting Physician PULMONARY DISEASE 12/03/21 Amber Ramon, CELEST[place], SPEECH AND DRAMA TEACHER-C [address] [phone] NURSE PRACTITIONER 12/03/21 documented as of this encounter
--- OUTSIDE RECORDS SUMMARY | 2024-12-13 10:09 | XMS_ITS | Clinical Summary ---
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 Sinus pause 01/01/2021 Aftercare following surgery 12/05/2019 Trigger thumb, left thumb 02/01/2019 HTN (hypertension) HLD (hyperlipidemia) Resolved Problems Problem Noted Date Diagnosed Date Resolved Date Snoring 01/16/2021 04/25/2021 Immunizations Immunization Administration Dates Next Due Fluzone High Dose [...] Comments Blood Pressure 119/55 05/04/2022 2:30 AM PHARMACY SALES ASSISTANT Pulse 88 05/04/2022 2:30 AM PHARMACY SALES ASSISTANT Temperature 37.1 C (98.7 F) 05/03/2022 11:59 AM PHARMACY SALES ASSISTANT Respiratory Rate 21 05/04/2022 2:30 AM PHARMACY SALES ASSISTANT Oxygen Saturation 99% 05/04/2022 2:30 AM PHARMACY SALES ASSISTANT Inhaled Oxygen Concentration - - Weight 81.2 kg (179 lb) 05/03/2022 11:59 AM PHARMACY SALES ASSISTANT Height 167.6 cm (5' 6) 05/03/2022 11:59 AM PHARMACY SALES ASSISTANT Body Mass Index 28.89 05/03/2022 11:59 AM PHARMACY SALES ASSISTANT Plan of Treatment Health Maintenance Due Date Last Done Comments Hepatitis C 11/04/1963 DTaP, Tdap and Td Vaccines (1 - Tdap) 1964 Annual Medicare Wellness Visit 2010 RSV Immunization or 60+ Years (1 - 1-dose 75+ series) 2020 COVID-19 Vaccine ( season) 2023 07/30/2021, 07/23/2021, 08/07/2020, Additional history exists Pneumococcal Vaccine: 50+ Years Completed 05/07/2018, 05/04/2017 Zoster Vaccines Completed [...] support at home upon discharge Lifestyle Jaylene العلي, RN Insurance AETNA Advance Directives * Full Code (Latest Code Status on File) Date Activated Date Inactivated Comments 04/10/2022 10:12 AM 04/16/2022 2:37 PM * Full Code Date Activated Date Inactivated Comments 03/29/2022 12:08 PM 04/06/2022 6:08 PM * Full Code Date Activated Date Inactivated Comments 02/07/2022 5:07 PM 02/09/2022 6:15 PM Care Teams Loan Originator Relationship Specialty Start Date End Date Theo Alford MD [address] [place] [address] PCP - General INTERNAL MEDICINE 09/26/23 Hermilo Renee MD INTERNAL MEDICINE 05/26/21 Mikel Portillo MD [address] [place] [address] Consulting Physician CARDIOVASCULAR DISEASE 12/01/21 Jose Kumar MD [address] [place] [address] Consulting Physician PULMONARY DISEASE 12/03/21 Amber Ramon APRN, MACHINE TOOL DRESSER-C [address] [facility] [address] [place] [phone] NURSE PRACTITIONER 12/03/21
--- OUTSIDE RECORDS SUMMARY | 2024-12-13 10:09 | XMS_ITS | Clinical Summary ---
Author Organization [facility] Address [address] [place] [address] Care Team Providers Care Cleaning Validation Consultant Name Role Phone Danielito Miles MD Primary Care Provider [phone] Aureliano Sweeney MD Unavailable [phone] Allergies Active Allergy Reactions Criticality Noted Date [...] mcg tablet Take 100 mcg by mouth early childhood director before breakfast Active metFORMIN (GLUCOPHAGE) 500 mg [...] Take 1,000 mg by mouth daily Active nisu1-ruj-byx-fis h oil-L.casei 120 mg-400 mg -4 billion cell capsule Take 460 mg by mouth daily after lunch Active Active Problems Problem Noted Date Diagnosed Date Lower leg mass, right 07/08/2021 Overview (07/08/2021): Added automatically from request for surgery [id number] Assessment & Plan (07/29/2021 11:24 AM CDT): [...] therapy. Assessment & Plan (06/25/2021 8:16 AM LEATHER CLEANER): Impression: Chronic diabetes mellitus controlled with insulin. Patient reports his last A1c was 7.3. Plan: Medications reviewed, no changes made. Continue glucose monitoring and management as per primary care. Pain and swelling of right lower extremity 06/25 Assessment & Plan (06/25/2021 8:38 AM LEATHER CLEANER): Impression: Patient complains of swelling to his [...] management. Assessment & Plan (06/25/2021 8:17 AM LEATHER CLEANER): Impression: Chronic stable hypertension, controlled medications. 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 soon Sleep apnea CPAP [place] (hard of hearing) mild Arthritis Hypothyroid on [...] on file Legal Sex Male 7:24 PM LEATHER CLEANER Gender Identity Not on file Sexual Orientation [...] ( season) 2023, 07/10/2020 Influenza Vaccine (#1) 2024 , 02/12/2019, 02/06/2018 Pneumococcal vaccine 65+ Completed [...] MD LAB BLOOD ORDERABLES Final Result [facility] [address] [facility] Department [place] [address] from Last 3 Months or Most Recently Relevant to Health Maintenance Insurance MEDICARE HMO/PPO MEDICARE HMO/PPO MEDICARE HMO/PPO Care Teams Cleaning Validation Consultant Relationship Specialty Start Date End Date Danielito Miles MD PCP - General Family Medicine 05/21/21 Aureliano Sweeney MD [address] [facility] [address] [place] [address] Surgeon Surgery 07/15/21
--- OUTSIDE RECORDS SUMMARY | 2024-12-13 10:09 | XMS_ITS | Encounter Summary ---
Author Organization [facility] Address [facility] [place] [address] Care Team Providers Care Airline Security Representative Name Role Phone Danielito Miles MD Primary Care Provider Hermilo Renee MD Unavailable Mikel Portillo MD Unavailable [phone] Jose Kumar MD Unavailable [phone] Amber Ramon APRN MONITOR AND STORAGE BIN TENDER-C Unavailable [phone] Theo Alford MD Primary Care Provider [phone] Encounter Details Date Type Department Care Team (Late st Contact Info) Description 02/11/2022 Tuan800 Message Enc [place] [facility] ield [address] [place], [place] [address] Lucina Barba, COLEEN [address] [facility] 2nd [place] [address] CT results Social History Tobacco [...] support at home upon discharge Lifestyle No Swathi, Jaylene M, RN documented as of this encounter Visit Diagnoses Not on filedocumented in this encounter Additional Health Concerns Infection Onset Date Last Indicated Resolved Time COVID-19 Rule Out 04/08/2022 04/08/2022 04/08/2022 8:52 PM PIPE FINISHING SUPERVISOR Parainfluenza 04/08/2022 04/08/2022 04/18/2022 12: 33 AM PIPE FINISHING SUPERVISOR Assessment Noted Time PHQ-9 Depression Total Score: 0 01/14/20 21 10:06 AM CDT documented as of this encounter Care Teams Airline Security Representative Relationship Specialty Start Date End Date Danielito Miles MD [address] [place] [phone] PCP - General FAMILY PRACTICE 11/17/17 09/25/23 Theo Alford MD [address] [place] [address] PCP - General INTERNAL MEDICINE 09/26/23 Hermilo Renee MD [address] [place] [phone] INTERNAL MEDICINE 05/26/21 Mikel Portillo MD [address] [place] [address] Consulting Physician CARDIOVASCULAR DISEASE 12/01/21 Jose Kumar MD [address] [place] [address] Consulting Physician PULMONARY DISEASE 12/03/21 Amber Ramon APRN, MONITOR AND STORAGE BIN TENDER-C [address] [facility] [address] [place] [phone] NURSE PRACTITIONER 12/03/21 documented as of this encounter
--- OUTSIDE RECORDS SUMMARY | 2024-12-13 10:09 | XMS_ITS | Encounter Summary ---
Author Organization [facility] Address [address] [place] [address] Care Team Providers Care Certified Activities Director Name Role Phone Danielito Miles MD Primary Care Provider Hermilo Renee MD Unavailable Mikel Portillo MD Unavailable [phone] Jose Kumar MD Unavailable [phone] Amber Ramon APRN, FOOD AND DRUG RESEARCH SCIENTIST-C Unavailable [phone] Theo Alford MD Primary Care Provider [phone] Encounter Details Date Type Department Care Team (Late st Contact Info) Description 09/29/2018 Abstract SFL CONVERSION [address] [place] [address] , Generic Conversion, Social History Tobacco Use [...] Rule Out 04/08/2022 04/08/2022 04/08/2022 8:52 PM FURNACE CLEANER Parainfluenza 04/08/2022 04/08/2022 04/18/2022 12: 33 AM FURNACE CLEANER documented as of this encounter Care Teams Certified Activities Director Relationship Specialty Start Date End Date Danielito Miles MD [address] [place] [phone] PCP - General FAMILY PRACTICE 11/17/17 09/25/23 Theo Alford MD [address] [place] [address] PCP - General INTERNAL MEDICINE 09/26/23 Hermilo Renee MD [address] [place] [phone] INTERNAL MEDICINE 05/26/21 Mikel Portillo MD [address] [place] [phone] Consulting Physician CARDIOVASCULAR DISEASE 12/01/21 Jose Kumar MD [address] [place] [address] Consulting Physician PULMONARY DISEASE 12/03/21 Amber Ramon APRN, FOOD AND DRUG RESEARCH SCIENTIST-C [address] [place] [phone] NURSE PRACTITIONER 12/03/21 documented as of this encounter
--- OUTSIDE RECORDS SUMMARY | 2024-12-13 10:09 | XMS_ITS | Encounter Summary ---
Author Organization [facility] Address [facility] [place] [address] Care Team Providers Care Entry Engineer Name Role Phone Danielito Miles MD Primary Care Provider [phone] Hermilo Renee MD Unavailable Mikel Portillo MD Unavailable [phone] Jose Kumar MD Unavailable [phone] Amber Ramon APRN, FOOD ANALYST-C Unavailable Theo Alford MD Primary Care Provider [phone] Reason for Visit * Reason Onset Date Comments Results 01/07/2021 Encounter Details Date Type Department Care Team (Late st Contact Info) Description 01/07/2021 Telephone [facility] [address] [place] [address] Jeff Oliveros MD [address] [place] [address] Results Social History Tobacco Use Types Packs/Day Years Used Date Smoking Tobacco: Former Cigarettes 2 15 1 96 - 1975 Smokeless Tobacco: Never Alcohol [...] of this encounter Progress Notes * April Ramesh Nano - 01/07/2021 10:23 AM CDT Patient's COVID test results are: NEGATIVE documented in this encounter Plan of Treatment Not on file documented as of this encounter Visit Diagnoses Not on filedocumented in this encounter Additional Health Concerns Infection Onset Date Last Indicated Resolved Time COVID-19 Rule Out 04/08/2022 04/08/2022 04/08/2022 8:52 PM MOTOR POOL CLERK Parainfluenza 04/08/2022 04/08/2022 04/18/2022 12: 33 AM MOTOR POOL CLERK documented as of this encounter Care Teams Entry Engineer Relationship Specialty Start Date End Date Danielito Miles MD [address] [place] [phone] PCP - General FAMILY PRACTICE 11/17/17 09/25/23 Theo Alford MD [address] [place] [address] PCP - General INTERNAL MEDICINE 09/26/23 Hremilo Renee MD [address] [place] [phone] INTERNAL MEDICINE 05/26/21 Mikel Portillo MD [address] [place] [address] Consulting Physician CARDIOVASCULAR DISEASE 12/01/21 Jose Kumar MD [address] [place] [address] Consulting Physician PULMONARY DISEASE 12/03/21 Amber Ramon, ELECTRO MECHANICAL ENGINEER, FOOD ANALYST-C [address] [facility] [address] [place] [address] NURSE PRACTITIONER 12/03/21 documented as of this encounter
--- OUTSIDE RECORDS SUMMARY | 2024-12-13 10:09 | XMS_ITS | Encounter Summary ---
Author Organization [facility] Address [facility] [place] [address] Care Team Providers Care Saw Runner Name Role Phone Danielito Miles MD Primary Care Provider [phone] Hermilo Renee MD Unavailable Mikel Portillo MD Unavailable [phone] Jose Kumar MD Unavailable [phone] Amber Ramon APRN, CATERING AND EVENTS MANAGER-C Unavailable [phone] Theo Alford MD Primary Care Provider [phone] Encounter Details Date Type Department Care Team (Late st Contact Info) Description 04/07/2022 Hospital Follow-up Call [facility] [address] [place] [address] Shannon Asher, RN Social History Tobacco Use Types Packs/Day Years [...] Coronavirus/COVID-19? No / Unsure 04/08/2022 11:57 AM ASSOCIATE PROGRAMMER ANALYST documented as of this encounter Functional Status [...] office or shopping? No 04/08/2022 6:26 PM Deamrco Downing RN Active * RETIRED Are you deaf or do you have serious difficulty hearing Answer Date of Assessment Author Status No 03/29/2022 6:10 AM ASSOCIATE PROGRAMMER ANALYST Activ e * RETIRED Are you blind or do you have serious difficulty seeing, even when wearing glasses? Answer Date of Assessment Author Status No 03/29/2022 6:10 AM ASSOCIATE PROGRAMMER ANALYST Activ e * Do you have serious [...] 6:10 AM Maritza Muro RN Active * Calculated C-SSRS Risk Score (Lifetime/Recent) Answer Date of Assessment Author Status No Risk Indicated 04/08/2022 6:26 PM Indira Downing RN Active * Castro Suicide Severity Rating Scale (Screener/Recent Self-Report) Question Answer Date of Assessment Author Status 1. Wish to be (Past 1 Month) No 04/08/2022 6:26 PM ASSOCIATE PROGRAMMER ANALYST Indira Bonilla RN Activ e 2. Non-Specific Active Suicidal Thoughts (Past 1 Month) No 04/08/2022 6:26 PM Indira Downing RN Activ e 6. Suicidal Behavior (Lifetime) No 04/08/2022 6:26 PM Indira Downing RN Activ e documented as of this encounter Mental Status [...] Date Author Status No 03/29/2022 6:10 AM ASSOCIATE PROGRAMMER ANALYST Maritza Manzo RN Active documented in this encounter Plan of Treatment Not on file documented as of this encounter Goals Goal Patient Goal Type Associated Problems Recent Progress Patient-Stated? Author Patient will return to prior living situation and remain independent in ADLs upon discharge from hospital Lifestyle No Jaylene Echevarria RN Safety Patient/family will have appropriate support at home upon discharge Lifestyle No Jaylene Echevarria RN documented as of this encounter Visit Diagnoses Not on filedocumented in this encounter Additional Health Concerns Infection Onset Date Last Indicated Resolved Time COVID-19 Rule Out 04/08/2022 04/08/2022 04/08/2022 8:52 PM ASSOCIATE PROGRAMMER ANALYST Parainfluenza 04/08/2022 04/08/2022 04/18/2022 12: 33 AM ASSOCIATE PROGRAMMER ANALYST Assessment Noted Time PHQ-9 Depression Total Score: 0 01/14/20 21 10:06 AM CDT documented as of this encounter Care Teams Saw Runner Relationship Specialty Start Date End Date Danielito Miles MD [address] [place] [phone] PCP - General FAMILY PRACTICE 11/17/17 09/25/23 Theo Alford MD [address] [place] [address] PCP - General INTERNAL MEDICINE 09/26/23 Hermilo Renee MD [address] [place] [phone] INTERNAL MEDICINE 05/26/21 Mikel Portillo MD [address] [place] [address] Consulting Physician CARDIOVASCULAR DISEASE 12/01/21 Jose Kumar MD [address] [place] [address] Consulting Physician PULMONARY DISEASE 12/03/21 Amber Ramon APRN, CATERING AND EVENTS MANAGER-C [address] [facility] [address] [place] [phone] NURSE PRACTITIONER 12/03/21 documented as of this encounter
--- OUTSIDE RECORDS SUMMARY | 2024-12-13 10:09 | XMS_ITS | Encounter Summary ---
Author Organization [facility] Address [facility] [place] [address] Care Team Providers Care Volleyball Assembler Name Role Phone Danielito Miles MD Primary Care Provider Hermilo Renee MD Unavailable Mikel Portillo MD Unavailable [phone] Jose Kumar MD Unavailable [phone] Amber Ramon APRN, ELECTRIC WHEELCHAIR REPAIRER-C Unavailable Theo Alford MD Primary Care Provider [phone] Encounter Details Date Type Department Care Team (Late st Contact Info) Description 01/05/2021 Bedloo Message Enc [facility] eld [address] [place] [address] Amber Ramon APRN, ELECTRIC WHEELCHAIR REPAIRER-C [address] [facility] [address] [place] [address] RE: Other Social History Tobacco [...] Rule Out 04/08/2022 04/08/2022 04/08/2022 8:52 PM COTTON PRESSER Parainfluenza 04/08/2022 04/08/2022 04/18/2022 12: 33 AM COTTON PRESSER documented as of this encounter Care Teams Volleyball Assembler Relationship Specialty Start Date End Date Danielito Miles MD [address] [place] [phone] PCP - General FAMILY PRACTICE 11/17/17 09/25/23 Theo Alford MD [address] [place] [phone] PCP - General INTERNAL MEDICINE 09/26/23 Hermilo Renee MD [address] [place] [phone] INTERNAL MEDICINE 05/26/21 Mikel Portillo MD [address] [place] [address] Consulting Physician CARDIOVASCULAR DISEASE 12/01/21 Jose Kumar MD [address] [place] [address] Consulting Physician PULMONARY DISEASE 12/03/21 Amber Ramon, WEBSITE DEVELOPER, ELECTRIC WHEELCHAIR REPAIRER-C [address] [phone] NURSE PRACTITIONER 12/03/21 documented as of this encounter
--- OUTSIDE RECORDS SUMMARY | 2024-12-13 10:09 | XMS_ITS | Encounter Summary ---
Author Organization [facility] Address [facility] [place] [address] Care Team Providers Care Billing Typist Name Role Phone Danielito Miles MD Primary Care Provider Hermilo Renee MD Unavailable Mikel Portillo MD Unavailable [phone] Jose Kumar MD Unavailable [phone] Amber Ramon APRN, FOREIGN LANGUAGES DEPARTMENT CHAIR-C Unavailable Theo Alford MD Primary Care Provider [phone] Encounter Details Date Type Department Care Team (Late st Contact Info) Description 08/10/2021 MyChart Message Enc [facility] [address] [place] [address] Jose Kumar MD [address] [place] [address] July 23 CPAP results Social [...] Rule Out 04/08/2022 04/08/2022 04/08/2022 8:52 PM SUPERVISOR PICKING CREW Parainfluenza 04/08/2022 04/08/2022 04/18/2022 12: 33 AM SUPERVISOR PICKING CREW Assessment Noted Time PHQ-9 Depression Total Score: 0 01/14/20 21 10:06 AM CDT documented as of this encounter Care Teams Billing Typist Relationship Specialty Start Date End Date Danielito Miles MD [address] [place] [phone] PCP - General FAMILY PRACTICE 11/17/17 09/25/23 Theo Alford MD [address] [place] [address] PCP - General INTERNAL MEDICINE 09/26/23 Hermilo Renee MD [address] [place] [phone] INTERNAL MEDICINE 05/26/21 Mikel Portillo MD [address] [place] [address] Consulting Physician CARDIOVASCULAR DISEASE 12/01/21 Jose Kumar MD [address] [place] [address] Consulting Physician PULMONARY DISEASE 12/03/21 Amber Ramon, CELESTINA, FOREIGN LANGUAGES DEPARTMENT CHAIR-C [address] [phone] NURSE PRACTITIONER 12/03/21 documented as of this encounter
--- OUTSIDE RECORDS SUMMARY | 2024-12-13 10:09 | XMS_ITS | Encounter Summary ---
Author Organization [facility] Address [facility] hospital6 [place] [address] Care Team Providers Care Web Methods Developer Name Role Phone Danielito Miles MD Primary Care Provider Hermilo Renee MD Unavailable Mikel Portillo MD Unavailable [phone] Jose Kumar MD Unavailable [phone] Amber Ramon APRN, FURNITURE CRATER-C Unavailable [phone] Theo Alford MD Primary Care Provider [phone] Encounter Details Date Type Department Care Team (Late st Contact Info) Description 12/04/2021 MyChart Message Enc [facility] [address] [place] [address] Jose Kumar MD [address] [place] [address] bicycle rides continued Social History [...] Rule Out 04/08/2022 04/08/2022 04/08/2022 8:52 PM FORENSIC CHEMIST Parainfluenza 04/08/2022 04/08/2022 04/18/2022 12: 33 AM FORENSIC CHEMIST Assessment Noted Time PHQ-9 Depression Total Score: 0 01/14/20 21 10:06 AM CDT documented as of this encounter Care Teams Web Methods Developer Relationship Specialty Start Date End Date Danielito Miles MD [address] [place] [phone] PCP - General FAMILY PRACTICE 11/17/17 09/25/23 Theo Alford MD [address] [place] [address] PCP - General INTERNAL MEDICINE 09/26/23 Hermilo Renee MD [address] [place] [phone] INTERNAL MEDICINE 05/26/21 Mikel Portlilo MD [address] [place] [address] Consulting Physician CARDIOVASCULAR DISEASE 12/01/21 Jose Kumar MD [address] [place] [address] Consulting Physician PULMONARY DISEASE 12/03/21 Amber Ramon, CELESTINA, FURNITURE CRATER-C [address] [phone] NURSE PRACTITIONER 12/03/21 documented as of this encounter
--- OUTSIDE RECORDS SUMMARY | 2024-12-13 10:09 | XMS_ITS | Encounter Summary ---
Author Organization [facility] Address [facility] [place] [address] Care Team Providers Care Rehabilitation Clerk Name Role Phone Danielito Miles MD Primary Care Provider Hermilo Renee MD Unavailable Mikel Portillo MD Unavailable [phone] Jose Kumar MD Unavailable [phone] Amber Ramon APRN, SHEEP KILLER-C Unavailable Theo Alford MD Primary Care Provider [phone] Encounter Details Date Type Department Care Team (Late st Contact Info) Description 06/03/2021 MyChart Message Enc [facility] [address] [place] [address] Jose Kumar MD [address] [place] [address] CPAP machine results Social History [...] Rule Out 04/08/2022 04/08/2022 04/08/2022 8:52 PM SITE IDENTIFICATION SPECIALIST Parainfluenza 04/08/2022 04/08/2022 04/18/2022 12: 33 AM SITE IDENTIFICATION SPECIALIST Assessment Noted Time PHQ-9 Depression Total Score: 0 01/14/20 21 10:06 AM CDT documented as of this encounter Care Teams Rehabilitation Clerk Relationship Specialty Start Date End Date Danielito Miles MD [address] [place] [phone] PCP - General FAMILY PRACTICE 11/17/17 09/25/23 Theo Alford MD [address] [place] [address] PCP - General INTERNAL MEDICINE 09/26/23 Hermilo Renee MD [address] [place] [phone] INTERNAL MEDICINE 05/26/21 Mikel Portillo MD [address] [place] [phone] Consulting Physician CARDIOVASCULAR DISEASE 12/01/21 Jose Kumar MD [address] [place] [address] Consulting Physician PULMONARY DISEASE 12/03/21 Amber Ramon, CELESTINA, SHEEP KILLER-C [address] [address] NURSE PRACTITIONER 12/03/21 documented as of this encounter
--- OUTSIDE RECORDS SUMMARY | 2024-12-13 10:09 | XMS_ITS | Encounter Summary ---
Author Organization [facility] Address [facility] [place] [address] Care Team Providers Care Geospatial Scientist Name Role Phone Danielito Miles MD Primary Care Provider Hermilo Renee MD Unavailable Mikel Portillo MD Unavailable [phone] Jose Kumar MD Unavailable [phone] Amber Ramon APRN, INTERIOR SPECIALIST-C Unavailable Theo Alford MD Primary Care Provider [phone] Encounter Details Date Type Department Care Team (Late st Contact Info) Description 12/13/2021 MyChart Message Enc [facility] [address] [place] [address] Jose Kumar MD [address] [place] [address] vitamin D-3 Social History Tobacco [...] Rule Out 04/08/2022 04/08/2022 04/08/2022 8:52 PM REJOINER Parainfluenza 04/08/2022 04/08/2022 04/18/2022 12: 33 AM REJOINER Assessment Noted Time PHQ-9 Depression Total Score: 0 01/14/20 21 10:06 AM CDT documented as of this encounter Care Teams Geospatial Scientist Relationship Specialty Start Date End Date Danielito Miles MD [address] [place] [phone] PCP - General FAMILY PRACTICE 11/17/17 09/25/23 Theo Alford MD [address] [place] [address] PCP - General INTERNAL MEDICINE 09/26/23 Hermilo Renee MD [address] [place] [phone] INTERNAL MEDICINE 05/26/21 Mikel Portillo MD [address] [place] [address] Consulting Physician CARDIOVASCULAR DISEASE 12/01/21 Jose Kumar MD [address] [place] [address] Consulting Physician PULMONARY DISEASE 12/03/21 Amber Ramon, CELESTINA, INTERIOR SPECIALIST-C [address] [phone] NURSE PRACTITIONER 12/03/21 documented as of this encounter
--- OUTSIDE RECORDS SUMMARY | 2024-12-13 10:09 | XMS_ITS | Encounter Summary ---
Author Organization [facility] Address [facility] [place] [address] Care Team Providers Care Shop Teacher Name Role Phone Danielito Miles MD Primary Care Provider Hermilo Renee MD Unavailable Mikel Portillo MD Unavailable [phone] Jose Kumar MD Unavailable [phone] Amber Ramon APRN, MOP MAN-C Unavailable Theo Alford MD Primary Care Provider [phone] Encounter Details Date Type Department Care Team (Late st Contact Info) Description 12/15/2021 MyChart Message Enc [facility] [address] [place] [address] Jose Kumar MD [address] [place] [address] Test results from alcoholism worker Social History Tobacco Use Types Packs/Day Years [...] Rule Out 04/08/2022 04/08/2022 04/08/2022 8:52 PM FRY COOK Parainfluenza 04/08/2022 04/08/2022 04/18/2022 12: 33 AM FRY COOK Assessment Noted Time PHQ-9 Depression Total Score: 0 01/14/20 21 10:06 AM CDT documented as of this encounter Care Teams Shop Teacher Relationship Specialty Start Date End Date Danielito Miles MD [address] [place] [phone] PCP - General FAMILY PRACTICE 11/17/17 09/25/23 Theo Alford MD [address] [place] [address] PCP - General INTERNAL MEDICINE 09/26/23 Hermilo Renee MD [address] [place] [phone] INTERNAL MEDICINE 05/26/21 Mikel Portillo MD [address] [place] [phone] Consulting Physician CARDIOVASCULAR DISEASE 12/01/21 Jose Kumar MD [address] [place] [address] Consulting Physician PULMONARY DISEASE 12/03/21 Amber Ramon APRN, MOP MAN-C [address] [place] [address] [address] [place] [address] NURSE PRACTITIONER 12/03/21 documented as of this encounter
--- OUTSIDE RECORDS SUMMARY | 2024-12-13 10:09 | XMS_ITS | Encounter Summary ---
Author Organization [facility] Address [facility]6 [place] [address] Care Team Providers Care Casing Machine Operator Name Role Phone Danielito Miles MD Primary Care Provider Hermilo Renee MD Unavailable Mikel Portillo MD Unavailable [phone] Jose Kumar MD Unavailable [phone] Amber Ramon APRN, BACON SKINNER-C Unavailable [phone] Theo Alford MD Primary Care Provider [phone] Encounter Details Date Type Department Care Team (Late st Contact Info) Description 04/13/2021 MyChart Message Enc [facility] [address] [place] [address] Joes Kumar MD [address] [place] [address] CPAP has arrived Social History [...] have responded to patient through my chart BLACK * Jolie Hernandez MA - 04/13/2021 1:12 PM CST See attachment BLACK * Jose Kumar MD - 04/13/2021 11:39 AM CST I have responded to patient through my chart BLACK * Jolie Hernandez MA - 04/13/2021 11:25 AM CST Please respond to pt BLACK documented in this encounter Plan of Treatment Not on file documented as of this encounter Visit Diagnoses Not on filedocumented in this encounter Additional Health Concerns Infection Onset Date Last Indicated Resolved Time COVID-19 Rule Out 04/08/2022 04/08/2022 04/08/2022 8:52 PM SHOEBLACK Parainfluenza 04/08/2022 04/08/2022 04/18/2022 12: 33 AM SHOEBLACK Assessment Noted Time PHQ-9 Depression Total Score: 0 01/14/20 10:06 AM CDT documented as of this encounter Care Teams Casing Machine Operator Relationship Specialty Start Date End Date Danielito Miles MD [address] [place] [phone] PCP - General FAMILY PRACTICE 11/17/17 09/25/23 Theo Alford MD [address] [place] [address] PCP - General INTERNAL MEDICINE 09/26/23 Hermilo Renee MD [address] [place] [phone] INTERNAL MEDICINE 05/26/21 Mikel Portillo MD [address] [place] [address] Consulting Physician CARDIOVASCULAR DISEASE 12/01/21 Jose Kumar MD [address] [place] [address] Consulting Physician PULMONARY DISEASE 12/03/21 Amber Ramon APRN, BACON SKINNER-C [address] [facility] [address] [place] [address] NURSE PRACTITIONER 12/03/21 documented as of this encounter
--- OUTSIDE RECORDS SUMMARY | 2024-12-13 10:09 | XMS_ITS | Encounter Summary ---
Author Organization [facility] Address [facility] [place] [address] Care Team Providers Care Power Sewing Machine Operator Name Role Phone Danielito Miles MD Primary Care Provider Hermilo Renee MD Unavailable Mikel Portillo MD Unavailable [phone] Jose Kumar MD Unavailable [phone] Amber Ramon APRN, POLE FRAME CONSTRUCTION WORKER-C Unavailable [phone] Theo Alford MD Primary Care Provider [phone] Encounter Details Date Type Department Care Team (Late st Contact Info) Description 12/13/2021 MyChart Message Enc [facility] [address] [place] [address] Jose Kumar MD [address] [place] [address] chest x-ray Social History Tobacco [...] Rule Out 04/08/2022 04/08/2022 04/08/2022 8:52 PM PIECE CUTTER Parainfluenza 04/08/2022 04/08/2022 04/18/2022 12: 33 AM PIECE CUTTER Assessment Noted Time PHQ-9 Depression Total Score: 0 01/14/20 21 10:06 AM CDT documented as of this encounter Care Teams Power Sewing Machine Operator Relationship Specialty Start Date End Date Danielito Miles MD [address] [place] [phone] PCP - General FAMILY PRACTICE 11/17/17 09/25/23 Theo Alford MD [address] [place] [address] PCP - General INTERNAL MEDICINE 09/26/23 Hermilo Renee MD [address] [place] [phone] INTERNAL MEDICINE 05/26/21 Mikel Portillo MD [address] [place] [address] Consulting Physician CARDIOVASCULAR DISEASE 12/01/21 Jose Kumar MD [address] [place] [address] Consulting Physician PULMONARY DISEASE 12/03/21 Amber Ramon, CELESTINA, POLE FRAME CONSTRUCTION WORKER-C [address] [phone] NURSE PRACTITIONER 12/03/21 documented as of this encounter
--- OUTSIDE RECORDS SUMMARY | 2024-12-13 10:09 | XMS_ITS | Clinical Summary ---
Author Organization [facility] Address [address] [place] [phone] Phone Care Team Providers Care Telecommunications Project Manager Name Role Phone Danielito Miles MD [...] for Shortness of Breath. Active cpap medical planner Low pressure 5. High pressure 20. Active [...] on file Legal Sex Male 7:19 PM NECK BAND OPERATOR Gender Identity Not on file Sexual Orientation Not on file Last Filed Vital Signs Vital Sign Reading Time Taken Comments Blood Pressure 116/58 05/19/2022 11:47 AM NECK BAND OPERATOR Pulse 96 05/07/2022 10:27 AM NECK BAND OPERATOR Temperature 36.4 C (97.6 F) 05/19/2022 11:47 AM NECK BAND OPERATOR Respiratory Rate 18 05/07/2022 10:27 AM NECK BAND OPERATOR Oxygen Saturation 95% 05/07/2022 10:27 AM NECK BAND OPERATOR Inhaled Oxygen Concentration - - Weight 78.5 kg (173 lb) 05/19/2022 11:47 AM NECK BAND OPERATOR Height 167.6 cm (5' 6) 05/19/2022 11:47 AM NECK BAND OPERATOR Body Mass Index 27.92 05/19/2022 11:47 AM NECK BAND OPERATOR Plan of Treatment Health Maintenance Due Date Last Done Comments DIABETES ANNUAL FOOT EXAM 11/04/1963 DIABETES ANNUAL RETINAL EXAM 11/04/1963 DIABETES MICROALBUMIN ANNUAL SCREEN 11/04/1963 LDL CHOLESTEROL ANNUAL 11/04/1963 DTAP/TDAP/TD VACCINES (1 - Tdap) 1964 RSV VACCINE (60+ or ) (1 - 1-dose 75+ series) 2020 DIABETES HBA1C Q 6 MONTHS 08/06/2022 02/05/2022 INFLUENZA VACCINE (#1) 2024 , 03/05/2020, 02/12/2019, Additional history exists PNEUMOCOCCAL VACCINE 50+ YEARS Completed 05/07/2018 , 05/04/2017 ZOSTER VACCINE Completed 12/01/2020, 05/02/2020 Medical Devices Implanted Type Area Felt Carbonizer Device Identifier Shelf Expiration Date Model / Serial / Lot Clip Ti Med/Lg 3200 - [facility] - [id number] Implanted:Qty: 1 on 05/05/2022 by Wilber Lockett MD at [facility] N/A: Abdomen TELEFLEX- WECK CLOSURE SYS 12/23/2026 [id number] / / [id number] Clip Ti Med/Lg 3200 - [facility] - [id number] Implanted:Qty: 1 on 05/05/2022 by Wilber Lockett MD at [facility] N/A: Abdomen TELEFLEX- WECK CLOSURE SYS 11/29/2026 [id number] / / [id number] Hemostatic Surg Powder 3013sp - [id number] Implanted:Qty: 1 on 05/05/2022 by Wilber Lockett MD at [facility] Hemostatic N/A: Abdomen J[employer]J- [employer] 06/22/2023 [id number] / / [id number] Insurance AETNA O [facility] RX AETNA Medicare Part D Advance Directives For more information, please contact: [phone] * Full Code (Latest Code Status on File) Date Activated Date Inactivated Comments 05/06/2022 7:51 PM 05/07/2022 7:28 PM * Full Code Date Activated Date Inactivated Comments 05/04/2022 8:44 AM 05/06/2022 7:50 PM * Default Full Code - Needs Discussion Date Activated Date Inactivated Comments 05/04/2022 4:41 AM 05/04/2022 8:43 AM Care Teams Telecommunications Project Manager Relationship Specialty Start Date End Date Danielito Miles MD [address] [place] [address] PCP - General Family Practice 05/04/22
--- OUTSIDE RECORDS SUMMARY | 2024-12-13 10:09 | XMS_ITS | Encounter Summary ---
Author Organization [facility] Address Critical access hospital6 [place] [address] Care Team Providers Care External Relations Manager Name Role Phone Danielito Miles MD Primary Care Provider [phone] Hermilo Renee MD Unavailable Mikel Portillo MD Unavailable [phone] Jose Kumar MD Unavailable [phone] Amber Ramon APRN, VETERINARY MICROBIOLOGIST-C Unavailable Theo Alford MD Primary Care Provider [phone] Encounter Details Date Type Department Care Team (Late st Contact Info) Description 04/13/2021 MyChart Message Enc [facility] Medical [facility] [address] [place] [address] Jose Kumar MD [address] [place] [address] MRI Social History Tobacco Use [...] have responded to patient through my chart IC LEAD * Jolie Hernandez MA - 04/13/2021 11:25 AM CST Please respond to pt IC LEAD documented in this encounter Plan of Treatment Not on file documented as of this encounter Visit Diagnoses Not on filedocumented in this encounter Additional Health Concerns Infection Onset Date Last Indicated Resolved Time COVID-19 Rule Out 04/08/2022 04/08/2022 04/08/2022 8:52 PM CLINIC LEAD Parainfluenza 04/08/2022 04/08/2022 04/18/2022 12: 33 AM CLINIC LEAD Assessment Noted Time PHQ-9 Depression Total Score: 0 01/14/20 21 10:06 AM CDT documented as of this encounter Care Teams External Relations Manager Relationship Specialty Start Date End Date Danielito Miles MD [address] [place] [phone] PCP - General FAMILY PRACTICE 11/17/17 09/25/23 Theo Alford MD [address] [place] [address] PCP - General INTERNAL MEDICINE 09/26/23 Hermilo Renee MD [address] [place] [phone] INTERNAL MEDICINE 05/26/21 Mikel Portillo MD [address] [place] [address] Consulting Physician CARDIOVASCULAR DISEASE 12/01/21 Jose Kumar MD [address] [place] [address] Consulting Physician PULMONARY DISEASE 12/03/21 Amber Ramon, SEISMOGRAPHER, VETERINARY MICROBIOLOGIST-C [address] [facility] [address] [place] [address] NURSE PRACTITIONER 12/03/21 documented as of this encounter
[2024-12-13 10:18] LABS: Hematocrit 40.5 % (37.0-46.0); Hemoglobin 13.4 g/dL (12.4-15.3); Mean Corpuscular HGB Conc 33.1 g/dL (32-36); Mean Corpuscular Hemoglobin 30.8 pg (27.0-31.0); Mean Corpuscular Volume 93.1 fL (78.0-102.0); Platelet Count Result 254 K/mm3 (150-420); Red Blood Count 4.35 M/mm3 (4.70-6.10); White Blood Count 5.8 K/mm3 (4.8-10.8)
[2024-12-13 10:30] LABS: Alanine Aminotransferase 27 U/L (6-50); Albumin Level 4.8 g/dL (3.5-5.1); Alkaline Phosphatase 40 U/L (38-126); Anion Gap 9 mmol/L (4-12); Aspartate Amino Transferase 30 U/L (17-59); Bilirubin,Total 0.6 mg/dL (0.2-1.3); Blood Urea Nitrogen 13 mg/dL (9-20); Calcium 9.7 mg/dL (8.4-10.2); Carbon Dioxide 30 mmol/L (22-30); Chloride 98 mmol/L (98-107); Estimated Glomerular Filt Rate > 60; Glucose 149 mg/dL (65-110); Osmolality Calculated 287 mOsm/kg (285-295); Potassium 5.0 mmol/L (3.4-5.0); Sodium 137 mmol/L (137-145); Total Protein 7.6 g/dL (6.3-8.2)
== END 2024-12-13 10:06 | disposition home or self-care (01) ==
PROVIDERS: PCP Internal Medicine; Visit Provider Nurse Practitioner Family
DX: R10.32 Left lower quadrant pain (principal); K59.00 Constipation, unspecified; R93.41 Abnormal radiologic findings on diagnostic imaging of renal pelvis, ureter, or bladder; Z90.49 Acquired absence of other specified parts of digestive tract
CPT/HCPCS: 36415; 74019; 74177; 80053; 85027; Q9967

== ENCOUNTER 2024-12-21 09:10 | Emergency (ER) | payer MEDICARE, SELFPAY ==
[2024-12-21 09:11] VITALS: BP 145/73; PULSE 78; RESP 18; TEMP 36.6; O2SAT 99
[2024-12-21] MEDS: ONDANSETRON HCL ODT 4 MG TABLET PO (09:26)
--- NOTE | 2024-12-21 09:28 | ED.NAVMDI ---
HPI - Nausea/Vomiting/Diarrhea General Chief complaint: Nausea/Vomiting/Diarrhea Stated complaint: vomiting, diarrhea Time Seen by Provider: 12/21/24 09:17 Source: patient Mode of arrival: ambulatory Limitations: no limitations History of Present Illness HPI Narrative: this is a 79-year-old male with history of diabetes presents with nausea vomiting and diarrhea currently there is no abdominal pain no fever chills there is no dysuria no hematuria no chest pain or shortness of breath. Patient has been on Mounjaro for the last 4 months without any incident. But started on citalopram 2 days ago and since then has been having nausea vomiting. MD elicited complaint: nausea, vomiting and diarrhea Onset (ago): day(s) Associated nausea: Yes Associated abdominal pain: No Related Data Home Medications ?Medication ?Instructions ?Recorded ?Confirmed ?Last Taken ?Type escitalopram oxalate 10 mg tablet 10 mg PO DAILY 12/21/24 Unknown History finasteride 5 mg tablet 5 mg PO DAILY 12/21/24 Unknown History levothyroxine 100 mcg tablet 100 mcg PO DAILY 12/21/24 Unknown History lisinopril 20 mg tablet 20 mg PO DAILY 12/21/24 Unknown History montelukast 10 mg tablet 10 mg PO QPM 12/21/24 Unknown History tirzepatide 10 mg/0.5 mL 10 mg subcut WEEKLY 12/21/24 Unknown History subcutaneous pen injector (Mounjaro) tirzepatide 2.5 mg/0.5 mL 2.5 mg subcut WEEKLY 12/21/24 Unknown History subcutaneous pen injector (Mounjaro) valsartan 80 mg tablet 80 mg PO DAILY 12/21/24 Unknown History Allergies Allergy/AdvReac Type Severity Reaction Status Date / Time Penicillins Allergy Rash Verified 12/21/24 09:18 beta blockers Allergy Intermediate Unknown Uncoded 12/21/24 09:18 opiods Allergy Intermediate Unknown Uncoded 12/21/24 09:18 Review of Systems Review of Systems: All systems reviewed & are unremarkable except as noted in HPI and below PMFSH Past Medical History Medical History Diabetes mellitus Social History Social History Smoking status: Never smoker Exam Const: General: healthy appearing and no acute distress Nutritional Appearance: well nourished Orientation/consciousness: patient oriented x3 Limitations: no limitations HENMT: Head: normal to inspection Eyes: Conjunctivae: conjunctivae normal Neck: Neck: normal visual inspection, no lymphadenopathy and no meningeal signs Chest: Chest palpation & inspection: normal inspection of the chest Resp: Effort & Inspection: normal respiratory effort Auscultation: clear to auscultation bilaterally Cardio: Rate: regular rate Rhythm: regular rhythm GI: GI Palp: Yes Soft to palpation Auscultation: normal bowel sounds : General: Yes bladder normal to palpation Urinary Catheter: Urinary Catheter: patent and draining Skin: General skin exam: normal color Rashes: no rashes Wounds: no wounds Neuro: General: patient oriented x3 and moves all extremities Course Course Emergency Course: patient blood glucose level 155, administered a dose of ODT Zofran for nausea. Otherwise patient vitals are stable blood pressure 145/73 afebrile O2 sat 99% room air. Vital Signs Vital signs: Vital Signs Temperature 36.6 C 12/21/24 09:11 Pulse Rate 78 12/21/24 09:11 Respiratory Rate 18 12/21/24 09:11 Blood Pressure 145/73 H 12/21/24 09:11 Pulse Oximetry 99 12/21/24 09:11 Oxygen Delivery Room Air 12/21/24 09:11 Temperature 36.6 C 12/21/24 09:11 Pulse Rate 78 12/21/24 09:11 Respiratory Rate 18 12/21/24 09:11 Blood Pressure 145/73 H 12/21/24 09:11 Pulse Oximetry 99 12/21/24 09:11 Oxygen Delivery Room Air 12/21/24 09:11 Critical Care Time Critical Care Time Critical Care Time: No Discharge Plan Discharge Clinical Impression: Gastroenteritis Insomnia Qualifiers: Insomnia type: unspecified Qualified Code(s): G47.00 - Insomnia, unspecified Patient Disposition: Home Condition: Stable Instructions: Antibiotic Form, Gastroenteritis (ED), Insomnia (ED) Additional Instructions: advised patient to continue current medication discontinue citalopram and follow up with primary within the next 2 to 3 days for further evaluation and treatment. Patient Language: Irish Prescriptions: New temazepam 15 mg capsule 15 mg PO HS PRN (Reason: sleep) Qty: 20 0RF ondansetron 4 mg tablet,disintegrating 4 mg PO Q6H PRN (Reason: nausea and vomiting) Qty: 14 0RF No Action escitalopram oxalate 10 mg tablet 10 mg PO DAILY levothyroxine 100 mcg tablet 100 mcg PO DAILY lisinopril 20 mg tablet 20 mg PO DAILY finasteride 5 mg tablet 5 mg PO DAILY Mounjaro 10 mg/0.5 mL pen injector 10 mg SUBCUT WEEKLY Mounjaro 2.5 mg/0.5 mL pen injector 2.5 mg SUBCUT WEEKLY valsartan 80 mg tablet 80 mg PO DAILY montelukast 10 mg tablet 10 mg PO QPM Follow-up/Referrals: Theo Alford MD [Primary Care Provider, Internal Medicine] Time of Disposition: 09:34
--- OUTSIDE RECORDS SUMMARY | 2024-12-21 09:44 | XMS_ITS | Clinical Summary ---
Author Organization [facility] Address [address] [place] [phone] Phone Care Team Providers Care Medical Bill Processor Name Role Phone Danielito Miles MD Primary [...] for Shortness of Breath. Active cpap medical collections representative Low pressure 5. High pressure 20. Active [...] hypertension 05/04/2022 Coronary artery disease invo lving [place] coronary artery of [place] heart without angina pectoris, S/P CABG on [...] on file Legal Sex Male 7:19 PM TECHNICAL SERVICES MANAGER Gender Identity Not on file Sexual Orientation Not on file Last Filed Vital Signs Vital Sign Reading Time Taken Comments Blood Pressure 116/58 05/19/2022 11:47 AM TECHNICAL SERVICES MANAGER Pulse 96 05/07/2022 10:27 AM TECHNICAL SERVICES MANAGER Temperature 36.4 C (97.6 F) 05/19/2022 11:47 AM TECHNICAL SERVICES MANAGER Respiratory Rate 18 05/07/2022 10:27 AM TECHNICAL SERVICES MANAGER Oxygen Saturation 95% 05/07/2022 10:27 AM TECHNICAL SERVICES MANAGER Inhaled Oxygen Concentration - - Weight 78.5 kg (173 lb) 05/19/2022 11:47 AM TECHNICAL SERVICES MANAGER Height 167.6 cm (5' 6) 05/19/2022 11:47 AM TECHNICAL SERVICES MANAGER Body Mass Index 27.92 05/19/2022 11:47 AM TECHNICAL SERVICES MANAGER Plan of Treatment Health Maintenance Due [...] 12/01/2020, 05/02/2020 Medical Devices Implanted Type Area Patient Care Coordinator Device Identifier Shelf Expiration Date Model / Serial / Lot Clip [place] Med[place]Lg [place]200 [place] [facility] [id number] Im[place]ed:Qty: 1 on 05/05/2022 by Wilber Lockett MD at [facility] N/A: Abdomen TELEFLEX- WECK CLOSURE SYS 12/23/2026 [id number] / / [id number] Clip Ti Med/Lg 3200 [place] [facility] [place] [id number] Implanted:Qty: 1 on 05/05/2022 by Wilber Lockett MD at [facility] N/A: Abdomen TELEFLEX- WECK CLOSURE SYS 11/29/2026 [id number] / / [id number] Hemostatic Surg Powder 3013sp - [id number] Implanted:Qty: 1 on 05/05/2022 by Wilber Lockett MD at [facility] Hemostatic N/A: Abdomen J[employer]J- [employer] 06/22/2023 [id number] / / SKBACE Insurance AETNA O [facility] RX AETNA Medicare Part D Advance Directives For more information, please contact: [phone] * Full Code (Latest Code Status on File) Date Activated Date Inactivated Comments 05/06/2022 7:51 PM 05/07/2022 7:28 PM * Full Code Date Activated Date Inactivated Comments 05/04/2022 8:44 AM 05/06/2022 7:50 PM * Default Full Code - Needs Discussion Date Activated Date Inactivated Comments 05/04/2022 4:41 AM 05/04/2022 8:43 AM Care Teams Medical Bill Processor Relationship Specialty Start Date End Date Danielito Miles MD [address] [place] [address] PCP - General Family Practice 05/04/22
--- OUTSIDE RECORDS SUMMARY | 2024-12-21 09:44 | XMS_ITS | Clinical Summary ---
Author Organization [facility] Address [address] [place] [address] Care Team Providers Care Product Handler Name Role Phone Danielito Miles MD Primary Care Provider [phone] Aureliano Sweeney MD Unavailable [phone] Allergies Active Allergy Reactions Criticality Noted [...] mcg tablet Take 100 mcg by mouth reel film inspector before breakfast Active metFORMIN (GLUCOPHAGE) 500 mg [...] Take 1,000 mg by mouth daily Active igph4-oau-dbn-fis h oil-L.casei 120 mg-400 mg -4 billion cell capsule Take 460 mg by mouth daily after lunch Active Active Problems Problem Noted Date Diagnosed Date Lower leg mass, right 07/08/2021 Overview (07/08/2021): Added automatically from request for surgery [id number] Assessment & Plan (07/29/2021 11:24 AM CDT): [...] therapy. Assessment & Plan (06/25/2021 8:16 AM RISK ASSESSMENT CONSULTANT): Impression: Chronic diabetes mellitus controlled with insulin. Patient reports his last A1c was 7.3. Plan: Medications reviewed, no changes made. Continue glucose monitoring and management as per primary care. Pain and swelling of right lower extremity 06/25 Assessment & Plan (06/25/2021 8:38 AM RISK ASSESSMENT CONSULTANT): Impression: Patient complains of swelling to his [...] management. Assessment & Plan (06/25/2021 8:17 AM RISK ASSESSMENT CONSULTANT): Impression: Chronic stable hypertension, controlled medications. Blood [...] degenerative problems causes SOB, seeing specialist [facility]. soon Sleep apnea CPAP [place] (hard of hearing) mild Arthritis Hypothyroid on [...] on file Legal Sex Male 7:24 PM RISK ASSESSMENT CONSULTANT Gender Identity Not on file Sexual [...] MD LAB BLOOD ORDERABLES Final Result [facility] [address] [facility] Department [place] [address] from Last 3 Months or Most Recently Relevant to Health Maintenance Insurance MEDICARE HMO/PPO MEDICARE HMO/PPO MEDICARE HMO/PPO Care Teams Product Handler Relationship Specialty Start Date End Date Danielito Miles MD PCP - General Family Medicine 05/21/21 Aureliano Sweeney MD [address] [place] [address] Surgeon Surgery 07/15/21
== END 2024-12-21 09:48 | disposition home or self-care (01) ==
PROVIDERS: Emergency Provider Emergency Medicine; PCP Internal Medicine
DX: K52.9 Noninfective gastroenteritis and colitis, unspecified (principal); G47.00 Insomnia, unspecified; E11.9 Type 2 diabetes mellitus without complications; Z79.899 Other long term (current) drug therapy
CPT/HCPCS: 82948; 99283; A9270

== ENCOUNTER 2024-12-25 10:38 | Outpatient (CLI) | payer MEDICARE, SELFPAY ==
--- NOTE | ~2024-12-25 | XR_ITS ---
EXAM/PROCEDURE: XR abdomen obstructive series - 12/25/2024 11:30 CDT HISTORY: 79 years old Male with Abdominal Pain, Constipation COMPARISON: None available. TECHNIQUE: AP view(s) of the abdomen. FINDINGS: Multiple distended loops of bowel are seen. Multiple areas of intraluminal air- fluid levels are noted, concerning for bowel obstruction versus ileus. No free intraperitoneal air is identified on this supine radiograph. The visualized soft tissue shadows are unremarkable. No gross bony abnormalities are seen. Visualized portions of lung bases are clear. IMPRESSION: Multiple areas of intraluminal air-fluid levels are noted, concerning for bowel obstruction versus ileus. Reviewed, dictated and finalized at location N.
[2024-12-25 11:42] LABS: Hematocrit 38.3 % (37.0-46.0); Hemoglobin 13.5 g/dL (12.4-15.3); Mean Corpuscular HGB Conc 35.2 g/dL (32-36); Mean Corpuscular Hemoglobin 31.5 pg (27.0-31.0); Mean Corpuscular Volume 89.5 fL (78.0-102.0); Platelet Count Result 284 K/mm3 (150-420); Red Blood Count 4.28 M/mm3 (4.70-6.10); White Blood Count 4.6 K/mm3 (4.8-10.8)
[2024-12-25 11:55] LABS: Alanine Aminotransferase 34 U/L (6-50); Albumin Level 4.7 g/dL (3.5-5.1); Alkaline Phosphatase 42 U/L (38-126); Amylase 135 U/L (30-110); Anion Gap 10 mmol/L (4-12); Aspartate Amino Transferase 40 U/L (17-59); Bilirubin,Total 0.7 mg/dL (0.2-1.3); Blood Urea Nitrogen 13 mg/dL (9-20); Calcium 9.5 mg/dL (8.4-10.2); Carbon Dioxide 31 mmol/L (22-30); Chloride 87 mmol/L (98-107); Estimated Glomerular Filt Rate > 60; Glucose 119 mg/dL (65-110); Lipase 197 U/L (23-300); Osmolality Calculated 267 mOsm/kg (285-295); Potassium 4.7 mmol/L (3.4-5.0); Sodium 128 mmol/L (137-145); Total Protein 7.3 g/dL (6.3-8.2)
--- OUTSIDE RECORDS SUMMARY | 2024-12-25 12:05 | XMS_ITS | Clinical Summary ---
Author Organization [facility] Address [address] [place] [address] Care Team Providers Care Clinical Dietetic Technician Name Role Phone Danielito Miles MD Primary Care Provider [phone] Aureliano Sweeney MD Unavailable [phone] Allergies Active Allergy Reactions Criticality Noted [...] mcg tablet Take 100 mcg by mouth reporting analyst before breakfast Active metFORMIN (GLUCOPHAGE) 500 mg [...] Take 1,000 mg by mouth daily Active ifrf7-gkj-mny-fis h oil-L.casei 120 mg-400 mg -4 billion cell capsule Take 460 mg by mouth daily after lunch Active Active Problems Problem Noted Date Diagnosed Date Lower leg mass, right 07/08/2021 Overview (07/08/2021): Added automatically from request for surgery [id number] Assessment & Plan (07/29/2021 11:24 AM CDT): [...] therapy. Assessment & Plan (06/25/2021 8:16 AM MANAGER INFRASTRUCTURE): Impression: Chronic diabetes mellitus controlled with insulin. Patient reports his last A1c was 7.3. Plan: Medications reviewed, no changes made. Continue glucose monitoring and management as per primary care. Pain and swelling of right lower extremity 06/25 Assessment & Plan (06/25/2021 8:38 AM MANAGER INFRASTRUCTURE): Impression: Patient complains of swelling to his [...] management. Assessment & Plan (06/25/2021 8:17 AM MANAGER INFRASTRUCTURE): Impression: Chronic stable hypertension, controlled medications. Blood [...] degenerative problems causes SOB, seeing specialist at [facility]. soon Sleep apnea CPAP [place] (hard of hearing) mild Arthritis Hypothyroid on [...] on file Legal Sex Male 7:24 PM MANAGER INFRASTRUCTURE Gender Identity Not on file Sexual Orientation [...] MD LAB BLOOD ORDERABLES Final Result [facility] [address] [facility] Department [place] [address] from Last 3 Months or Most Recently Relevant to Health Maintenance Insurance MEDICARE HMO/PPO MEDICARE HMO/PPO MEDICARE HMO/PPO Care Teams Clinical Dietetic Technician Relationship Specialty Start Date End Date Danielito Miles MD PCP - General Family Medicine 05/21/21 Aureliano Sweeney MD [address] [place] [address] Surgeon Surgery 07/15/21
--- OUTSIDE RECORDS SUMMARY | 2024-12-25 12:05 | XMS_ITS | Encounter Summary ---
Author Organization [facility] Address [facility] [place] [address] Care Team Providers Care Alterations Sewer Name Role Phone Danielito Miles MD Primary Care Provider [phone] Hermilo Renee MD Unavailable Mikel Portillo MD Unavailable [phone] Jose Kumar MD Unavailable [phone] mAber Ramon APRN, BISCUITWARE BRUSHER-C Unavailable [phone] Theo Alford MD Primary Care Provider [phone] Encounter Details Date Type Department Care Team (Late st Contact Info) Description 04/07/2022 Hospital Follow-up Call [facility] [address] [place] [address] Shannon Asher, RN Social History [...] Coronavirus/COVID-19? No / Unsure 04/08/2022 11:57 AM CLOTHES DESIGNER documented as of this encounter Functional Status [...] Assessment Author Status No 03/29/2022 6:10 AM CLOTHES DESIGNER Activ e * RETIRED Are you blind or do you have serious difficulty seeing, even when wearing glasses? Answer Date of Assessment Author Status No 03/29/2022 6:10 AM CLOTHES DESIGNER Activ e * Do you have serious [...] 6:26 PM Indira Downing RN Active * [place] Suicide Severity Rating Scale (Screener/Recent Self-Report) Question Answer Date of Assessment Author Status 1. Wish to be (Past 1 Month) No 04/08/2022 6:26 PM CLOTHES DESIGNER Indira Bonilla RN Activ e 2. Non-Specific [...] Date Author Status No 03/29/2022 6:10 AM CLOTHES DESIGNER Maritza Manzo RN Active documented in this [...] Rule Out 04/08/2022 04/08/2022 04/08/2022 8:52 PM CLOTHES DESIGNER Parainfluenza 04/08/2022 04/08/2022 04/18/2022 12: 33 AM CLOTHES DESIGNER Assessment Noted Time PHQ-9 Depression Total Score: 0 01/14/20 21 10:06 AM CDT documented as of this encounter Care Teams Alterations Sewer Relationship Specialty Start Date End Date Danielito Miles MD [address] [place] [phone] PCP - General FAMILY PRACTICE 11/17/17 09/25/23 Theo Alford MD [address] [place] [address] PCP - General INTERNAL MEDICINE 09/26/23 Hermilo Renee MD [address] [place] [phone] INTERNAL MEDICINE 05/26/21 Mikel Portillo MD [address] [place] [address] Consulting Physician CARDIOVASCULAR DISEASE 12/01/21 Jose Kumar MD [address] [place] [address] Consulting Physician PULMONARY DISEASE 12/03/21 Amber Ramon APRN, BISCUITWARE BRUSHER-C [address] [facility] [address] [place] [phone] NURSE PRACTITIONER 12/03/21 documented as of this encounter
--- OUTSIDE RECORDS SUMMARY | 2024-12-25 12:05 | XMS_ITS | Clinical Summary ---
Author Organization [facility] Address [address] [place] [phone] Phone Care Team Providers Care Pipelaying Fitter Name Role Phone Danielito Miles MD Primary Care Provider [phone] Allergies Active Allergy Reactions Criticality Noted Date [...] needed for Shortness of Breath. Active cpap clinical medical transcriptionist Low pressure 5. High pressure 20. Active [...] hypertension 05/04/2022 Coronary artery disease invo lving [place] coronary artery of [place] heart without angina pectoris, S/P CABG on [...] on file Legal Sex Male 7:19 PM LIGHT ARMORED VEHICLE OFFICER Gender Identity Not on file Sexual Orientation Not on file Last Filed Vital Signs Vital Sign Reading Time Taken Comments Blood Pressure 116/58 05/19/2022 11:47 AM LIGHT ARMORED VEHICLE OFFICER Pulse 96 05/07/2022 10:27 AM LIGHT ARMORED VEHICLE OFFICER Temperature 36.4 C (97.6 F) 05/19/2022 11:47 AM LIGHT ARMORED VEHICLE OFFICER Respiratory Rate 18 05/07/2022 10:27 AM LIGHT ARMORED VEHICLE OFFICER Oxygen Saturation 95% 05/07/2022 10:27 AM LIGHT ARMORED VEHICLE OFFICER Inhaled Oxygen Concentration - - Weight 78.5 kg (173 lb) 05/19/2022 11:47 AM LIGHT ARMORED VEHICLE OFFICER Height 167.6 cm (5' 6) 05/19/2022 11:47 AM LIGHT ARMORED VEHICLE OFFICER Body Mass Index 27.92 05/19/2022 11:47 AM LIGHT ARMORED VEHICLE OFFICER Plan of Treatment Health Maintenance Due Date [...] 12/01/2020, 05/02/2020 Medical Devices Implanted Type Area External Relations Manager Device Identifier Shelf Expiration Date Model / Serial / Lot Clip Ti Med/Lg 3200 [place] [facility] [place] [id number] Implanted:Qty: 1 on 05/05/2022 by Wilber Lockett MD at [facility] N/A: Abdomen TELEFLEX- WECK CLOSURE SYS 12/23/2026 [id number] / / [id number] Clip Ti Med/Lg 3200 [place] [facility] [place] [id number] Implanted:Qty: 1 on 05/05/2022 by Wilber Lockett MD at [facility] N/A: Abdomen TELEFLEX- WECK CLOSURE SYS 11/29/2026 [id number] / / [id number] Hemostatic Surg Powder 3013sp - [id number] Implanted:Qty: 1 on 05/05/2022 by Wilber Lockett MD at [facility] Hemostatic N/A: Abdomen J[employer]J- [employer] 06/22/2023 [id number] / / SKBACE Insurance AETNA O [facility] RX AETNA Medicare Part D Advance Directives For more information, please contact: [phone] * Full Code (Latest Code Status on File) Date Activated Date Inactivated Comments 05/06/2022 7:51 PM 05/07/2022 7:28 PM * Full Code Date Activated Date Inactivated Comments 05/04/2022 8:44 AM 05/06/2022 7:50 PM * Default Full Code - Needs Discussion Date Activated Date Inactivated Comments 05/04/2022 4:41 AM 05/04/2022 8:43 AM Care Teams Pipelaying Fitter Relationship Specialty Start Date End Date Danielito Miles MD [address] [place] [address] PCP - General Family Practice 05/04/22
--- OUTSIDE RECORDS SUMMARY | 2024-12-25 12:05 | XMS_ITS | Encounter Summary ---
Author Organization [facility] Address [address] [place] [address] Care Team Providers Care Obiee Consultant Name Role Phone Danielito Miles MD Primary Care Provider Hermilo Renee MD Unavailable Mikel Portillo MD Unavailable [phone] Jose Kumar MD Unavailable [phone] Amber Ramon APRN, SAMPLES AND REPAIRS PREPARER-C Unavailable Theo Alford MD Primary Care Provider [phone] Encounter Details Date Type Department Care Team (Late st Contact Info) Description 09/29/2018 Abstract SFL CONVERSION [address] [place] [address] , Generic Conversion, Social History Tobacco Use [...] Rule Out 04/08/2022 04/08/2022 04/08/2022 8:52 PM ADVENTURE GUIDE Parainfluenza 04/08/2022 04/08/2022 04/18/2022 12: 33 AM ADVENTURE GUIDE documented as of this encounter Care Teams Obiee Consultant Relationship Specialty Start Date End Date Danielito Miles MD [address] [place] [phone] PCP - General FAMILY PRACTICE 11/17/17 09/25/23 Theo Alford MD [address] [place] [address] PCP - General INTERNAL MEDICINE 09/26/23 Hermilo Renee MD [address] [place] [phone] INTERNAL MEDICINE 05/26/21 Mikel Portillo MD [address] [place] [phone] Consulting Physician CARDIOVASCULAR DISEASE 12/01/21 Jose Kumar MD [address] [place] [address] Consulting Physician PULMONARY DISEASE 12/03/21 Amber Ramon APRN, SAMPLES AND REPAIRS PREPARER-C [address] [place] [phone] NURSE PRACTITIONER 12/03/21 documented as of this encounter
--- OUTSIDE RECORDS SUMMARY | 2024-12-25 12:05 | XMS_ITS | Encounter Summary ---
Author Organization [facility] Address [facility] [place] [address] Care Team Providers Care Cancer Researcher Name Role Phone Danielito Miles MD Primary Care Provider Hermilo Renee MD Unavailable Mikel Portillo MD Unavailable [phone] Jose Kumar MD Unavailable [phone] Amber Ramon APRN RECYCLING ATTENDANT-C Unavailable Theo Alford MD Primary Care Provider [phone] Encounter Details Date Type Department Care Team (Late st Contact Info) Description 02/11/2022 Comfy Message [facility] [address] [place], [place] [phone] Lucina Barba, COLEEN [address] [facility] [address] [place] [address] CT results Social History Tobacco [...] Rule Out 04/08/2022 04/08/2022 04/08/2022 8:52 PM WALL CLEANER Parainfluenza 04/08/2022 04/08/2022 04/18/2022 12: 33 AM WALL CLEANER Assessment Noted Time PHQ-9 Depression Total Score: 0 01/14/20 21 10:06 AM CDT documented as of this encounter Care Teams Cancer Researcher Relationship Specialty Start Date End Date Danielito Miles MD [address] [place] [phone] PCP - General FAMILY PRACTICE 11/17/17 09/25/23 Theo Alford MD [address] [place] [address] PCP - General INTERNAL MEDICINE 09/26/23 Hermilo Renee MD [address] [place] [phone] INTERNAL MEDICINE 05/26/21 Mikel Portillo MD [address] [place] [address] Consulting Physician CARDIOVASCULAR DISEASE 12/01/21 Jose Kumar MD [address] [place] [address] Consulting Physician PULMONARY DISEASE 12/03/21 Amber Ramon APRN, RECYCLING ATTENDANT-C [address] [facility] [address] [place] [phone] NURSE PRACTITIONER 12/03/21 documented as of this encounter
--- OUTSIDE RECORDS SUMMARY | 2024-12-25 12:05 | XMS_ITS | Encounter Summary ---
Author Organization [facility] Address [facility] [place] [address] Care Team Providers Care Clinical Nursing Instructor Name Role Phone Danielito Miles MD Primary Care Provider Hermilo Renee MD Unavailable Mikel Portillo MD Unavailable Jose Kumar MD Unavailable [phone] Amber Ramon APRN, FITTER TACKER-C Unavailable Theo Alford MD Primary Care Provider Encounter Details Date Type Department Care Team (Late st Contact Info) Description 01/05/2021 INXPO Message Enc [facility] eld [address] [place] [address] Amber Ramon APRN, FITTER TACKER-C [address] [facility] [address] [place] [address] RE: Other Social History Tobacco [...] Rule Out 04/08/2022 04/08/2022 04/08/2022 8:52 PM DIE CASTING SUPERVISOR Parainfluenza 04/08/2022 04/08/2022 04/18/2022 12: 33 AM DIE CASTING SUPERVISOR documented as of this encounter Care Teams Clinical Nursing Instructor Relationship Specialty Start Date End Date Danielito Miles MD [address] [place] [phone] PCP - General FAMILY PRACTICE 11/17/17 09/25/23 Theo Alford MD [address] [place] [phone] PCP - General INTERNAL MEDICINE 09/26/23 Hermilo Renee MD [address] [place] [phone] INTERNAL MEDICINE 05/26/21 Mikel Portillo MD [address] [place] [address] Consulting Physician CARDIOVASCULAR DISEASE 12/01/21 Jose Kumar MD [address] [place] [address] Consulting Physician PULMONARY DISEASE 12/03/21 Amber Ramon, SENIOR DATA ANALYST, FITTER TACKER-C [address] [address] NURSE PRACTITIONER 12/03/21 documented as of this encounter
--- OUTSIDE RECORDS SUMMARY | 2024-12-25 12:05 | XMS_ITS | Encounter Summary ---
Author Organization [facility] Address [facility]6 [place] [address] Care Team Providers Care Spooler Rubber Strand Name Role Phone Danielito Miles MD Primary Care Provider Hermilo Renee MD Unavailable Mikel Portillo MD Unavailable [phone] Jose Kumar MD Unavailable [phone] Amber Ramon APRN, OVEN UNLOADER-C Unavailable [phone] Theo Alford MD Primary Care Provider [phone] Reason for Visit * Reason Onset Date Comments Results 01/07/2021 Encounter Details Date Type Department Care Team (Late st Contact Info) Description 01/07/2021 Telephone [facility] [address] [place] [address] Jeff Oliveros MD [address] [place] [address] Results Social History Tobacco Use [...] Rule Out 04/08/2022 04/08/2022 04/08/2022 8:52 PM SKILLED NURSING FACILITIES PROFESSIONAL Parainfluenza 04/08/2022 04/08/2022 04/18/2022 12: 33 AM SKILLED NURSING FACILITIES PROFESSIONAL documented as of this encounter Care Teams Spooler Rubber Strand Relationship Specialty Start Date End Date Danielito Miles MD [address] [place] [phone] PCP - General FAMILY PRACTICE 11/17/17 09/25/23 Theo Alford MD 4 [place] [address] PCP - General INTERNAL MEDICINE 09/26/23 Hermilo Renee MD [address] [place] [phone] INTERNAL MEDICINE 05/26/21 Mikel Portillo MD [address] [place] [address] Consulting Physician CARDIOVASCULAR DISEASE 12/01/21 Jose Kumar MD [address] [place] [address] Consulting Physician PULMONARY DISEASE 12/03/21 Amber Ramon, LOADING MACHINE OPERATOR HELPER, OVEN UNLOADER-C [address] [facility] [address] [place] [address] NURSE PRACTITIONER 12/03/21 documented as of this encounter
--- OUTSIDE RECORDS SUMMARY | 2024-12-25 12:06 | XMS_ITS | Encounter Summary ---
Author Organization [facility] Address [facility] [place]6 [place] [address] Care Team Providers Care Spare Hand Carding Name Role Phone Danielito Miles MD Primary Care Provider [phone] Hermilo Renee MD Unavailable Mikel Portillo MD Unavailable [phone] Jose Kumar MD Unavailable [phone] Amber Ramon APRN, LAND MANAGER-C Unavailable Theo Alford MD Primary Care Provider [phone] Encounter Details Date Type Department Care Team (Late st Contact Info) Description 12/04/2021 MyChart Message Enc [facility] [address] [place] [address] Jose Kumar MD [address] [place] [address] bicycle rides continued Social History [...] Rule Out 04/08/2022 04/08/2022 04/08/2022 8:52 PM MAINTENANCE MECHANIC MILLWRIGHT Parainfluenza 04/08/2022 04/08/2022 04/18/2022 12: 33 AM MAINTENANCE MECHANIC MILLWRIGHT Assessment Noted Time PHQ-9 Depression Total Score: 0 01/14/20 21 10:06 AM CDT documented as of this encounter Care Teams Spare Hand Carding Relationship Specialty Start Date End Date Danielito Miles MD [address] [place] [phone] PCP - General FAMILY PRACTICE 11/17/17 09/25/23 Theo Alford MD [address] [place] [address] PCP - General INTERNAL MEDICINE 09/26/23 Hermilo Renee MD [address] [place] [phone] INTERNAL MEDICINE 05/26/21 Mikel Portillo MD [address] [place] [address] Consulting Physician CARDIOVASCULAR DISEASE 12/01/21 Jose Kumar MD [address] [place] [address] Consulting Physician PULMONARY DISEASE 12/03/21 Amber Ramon, CELESTINA, LAND MANAGER-C [address] [phone] NURSE PRACTITIONER 12/03/21 documented as of this encounter
--- OUTSIDE RECORDS SUMMARY | 2024-12-25 12:06 | XMS_ITS | Encounter Summary ---
Author Organization [facility] Address [facility]6 [place] [address] Care Team Providers Care Hat And Cap Opener Name Role Phone Danielito Miles MD Primary Care Provider Hermilo Renee MD Unavailable Mikel Portillo MD Unavailable [phone] Jose Kumar MD Unavailable [phone] Amber Ramon APRN, WARDROBE ASSISTANT-C Unavailable Theo Alford MD Primary Care Provider [phone] Encounter Details Date Type Department Care Team (Late st Contact Info) Description 08/10/2021 MyChart Message Enc [facility] [address] [place] [address] Jose Kumar MD [address] [place] [address] July 23 CPAP results Social [...] Rule Out 04/08/2022 04/08/2022 04/08/2022 8:52 PM CLOUD ADMINISTRATOR Parainfluenza 04/08/2022 04/08/2022 04/18/2022 12: 33 AM CLOUD ADMINISTRATOR Assessment Noted Time PHQ-9 Depression Total Score: 0 01/14/20 21 10:06 AM CDT documented as of this encounter Care Teams Hat And Cap Opener Relationship Specialty Start Date End Date Danielito Miles MD [address] [place] [phone] PCP - General FAMILY PRACTICE 11/17/17 09/25/23 Theo Alford MD [address] [place] [address] PCP - General INTERNAL MEDICINE 09/26/23 Hermilo Renee MD [address] [place] [phone] INTERNAL MEDICINE 05/26/21 Mikel Portillo MD [address] [place] [address] Consulting Physician CARDIOVASCULAR DISEASE 12/01/21 Jose Kumar MD [address] [place] [address] Consulting Physician PULMONARY DISEASE 12/03/21 Amber Ramon, CELESTINA, WARDROBE ASSISTANT-C [address] [phone] NURSE PRACTITIONER 12/03/21 documented as of this encounter
--- OUTSIDE RECORDS SUMMARY | 2024-12-25 12:06 | XMS_ITS | Encounter Summary ---
Author Organization [facility] Address [facility]6 [place] [address] Care Team Providers Care Boilermaker Pipe Fitter Name Role Phone Danieilto Miles MD Primary Care Provider Hermilo Renee MD Unavailable Mikel Portillo MD Unavailable [phone] Jose Kumar MD Unavailable [phone] Amber Ramon APRN, ADMINISTRATIVE UNDERWRITER-C Unavailable Theo Alford MD Primary Care Provider [phone] Encounter Details Date Type Department Care Team (Late st Contact Info) Description 04/13/2021 MyChart Message Enc [facility] [address] [place] [address] Jose Kumar MD [address] [place] [address] MRI Social History Tobacco Use [...] have responded to patient through my chart RAL PROFESSIONAL * Jolie Hernandez MA - 04/13/2021 11:25 AM CST Please respond to pt RAL PROFESSIONAL documented in this encounter Plan of Treatment Not on file documented as of this encounter Visit Diagnoses Not on filedocumented in this encounter Additional Health Concerns Infection Onset Date Last Indicated Resolved Time COVID-19 Rule Out 04/08/2022 04/08/2022 04/08/2022 8:52 PM FUNERAL PROFESSIONAL Parainfluenza 04/08/2022 04/08/2022 04/18/2022 12: 33 AM FUNERAL PROFESSIONAL Assessment Noted Time PHQ-9 Depression Total Score: 0 01/14/20 21 10:06 AM CDT documented as of this encounter Care Teams Boilermaker Pipe Fitter Relationship Specialty Start Date End Date Danielito Miles MD [address] [place] [phone] PCP - General FAMILY PRACTICE 11/17/17 09/25/23 Theo Alford MD 4 [place] [address] PCP - General INTERNAL MEDICINE 09/26/23 Hermilo Renee MD [address] [place] [phone] INTERNAL MEDICINE 05/26/21 Mikel Portillo MD [address] [place] [address] Consulting Physician CARDIOVASCULAR DISEASE 12/01/21 Jose Kumar MD [address] [place] [address] Consulting Physician PULMONARY DISEASE 12/03/21 Amber Ramon, SMALL PIECE CUTTER, ADMINISTRATIVE UNDERWRITER-C [address] [facility] [address] [place] [address] NURSE PRACTITIONER 12/03/21 documented as of this encounter
--- OUTSIDE RECORDS SUMMARY | 2024-12-25 12:06 | XMS_ITS | Clinical Summary ---
Author Organization [facility] Address [facility]6 [place] [address] Care Team Providers Care Membership Sales Advisor Name Role Phone Hermilo Renee MD Unavailable Mikel Portillo MD Unavailable Jose Kumar MD Unavailable [phone] Amber Ramon APRN, NP-Cyndee Unavailable Theo Alford MD Primary Care Provider [phone] Allergies Active Allergy Reactions Criticality Noted Date [...] Comments Blood Pressure 119/55 05/04/2022 2:30 AM RODEO CLOWN Pulse 88 05/04/2022 2:30 AM RODEO CLOWN Temperature 37.1 C (98.7 F) 05/03/2022 11:59 AM RODEO CLOWN Respiratory Rate 21 05/04/2022 2:30 AM RODEO CLOWN Oxygen Saturation 99% 05/04/2022 2:30 AM RODEO CLOWN Inhaled Oxygen Concentration - - Weight 81.2 kg (179 lb) 05/03/2022 11:59 AM RODEO CLOWN Height 167.6 cm (5' 6) 05/03/2022 11:59 AM RODEO CLOWN Body Mass Index 28.89 05/03/2022 11:59 AM RODEO CLOWN Plan of Treatment Health Maintenance Due Date [...] 5:07 PM 02/09/2022 6:15 PM Care Teams Membership Sales Advisor Relationship Specialty Start Date End Date Theo Alford MD [address] [place] [address] PCP - General INTERNAL MEDICINE 09/26/23 Hermilo Renee MD INTERNAL MEDICINE 05/26/21 Mikel Portillo MD [address] [place] [address] Consulting Physician CARDIOVASCULAR DISEASE 12/01/21 Jose Kumar MD [address] [place] [address] Consulting Physician PULMONARY DISEASE 12/03/21 Amber Ramon APRN, CATTLE CARE WORKER-C [address] [facility] [address] [place] [address] NURSE PRACTITIONER 12/03/21
--- OUTSIDE RECORDS SUMMARY | 2024-12-25 12:06 | XMS_ITS | Encounter Summary ---
Author Organization [facility] Address [facility]6 [place] [address] Care Team Providers Care Parachute Taper Name Role Phone Danielito Miles MD Primary Care Provider Hermilo Renee MD Unavailable Mikel Portillo MD Unavailable [phone] Jose Kumar MD Unavailable [phone] Amber Ramon APRN, DRY DIP WORKER-C Unavailable Theo Alford MD Primary Care Provider [phone] Encounter Details Date Type Department Care Team (Late st Contact Info) Description 12/13/2021 MyChart Message Enc [facility] [address] [place] [address] Jose Kumar MD [address] [place] [address] chest x-ray Social History Tobacco [...] Out 04/08/2022 04/08/2022 04/08/2022 8:52 PM SUPERVISOR BENZENE REFINING Parainfluenza 04/08/2022 04/08/2022 04/18/2022 12: 33 AM SUPERVISOR BENZENE REFINING Assessment Noted Time PHQ-9 Depression Total Score: 0 01/14/20 21 10:06 AM CDT documented as of this encounter Care Teams Parachute Taper Relationship Specialty Start Date End Date Danielito Miles MD [address] [place] [phone] PCP - General FAMILY PRACTICE 11/17/17 09/25/23 Theo Alford MD [address] [place] [address] PCP - General INTERNAL MEDICINE 09/26/23 Hermilo Renee MD [address] [place] [phone] INTERNAL MEDICINE 05/26/21 Mikel Portillo MD [address] [place] [address] Consulting Physician CARDIOVASCULAR DISEASE 12/01/21 Jose Kumar MD [address] [place] [address] Consulting Physician PULMONARY DISEASE 12/03/21 Amber Ramon, CELESTINA, DRY DIP WORKER-C [address] [phone] NURSE PRACTITIONER 12/03/21 documented as of this encounter
--- OUTSIDE RECORDS SUMMARY | 2024-12-25 12:06 | XMS_ITS | Encounter Summary ---
Author Organization [facility] Address [facility] [place] [address] Care Team Providers Care Client Strategist Name Role Phone Danielito Miles MD Primary Care Provider [phone] Herimlo Renee MD Unavailable Mikel Portillo MD Unavailable [phone] Jose Kumar MD Unavailable [phone] Amber Ramon APRN, COCONUT BOILER-C Unavailable Theo Alford MD Primary Care Provider [phone] Encounter Details Date Type Department Care Team (Latest Contact Info) Description 01/05/2022 [employer] Message [facility] [place] [address] Jeff Oliveros MD [address] [place] [address] appointment Social History Tobacco Use [...] Rule Out 04/08/2022 04/08/2022 04/08/2022 8:52 PM MEDIA SUPERVISOR Parainfluenza 04/08/2022 04/08/2022 04/18/2022 12: 33 AM MEDIA SUPERVISOR Assessment Noted Time PHQ-9 Depression Total Score: 0 01/14/20 21 10:06 AM CDT documented as of this encounter Care Teams Client Strategist Relationship Specialty Start Date End Date Danielito Miles MD [address] [place] [phone] PCP - General FAMILY PRACTICE 11/17/17 09/25/23 Theo Alford MD 4 [place] [address] PCP - General INTERNAL MEDICINE 09/26/23 Hermilo Renee MD [address] [place] [phone] INTERNAL MEDICINE 05/26/21 Mikel Portillo MD [address] [place] [address] Consulting Physician CARDIOVASCULAR DISEASE 12/01/21 Jose Kumar MD [address] [place] [address] Consulting Physician PULMONARY DISEASE 12/03/21 Amber Ramon, CELESTINA, COCONUT BOILER-C [address] [phone] NURSE PRACTITIONER 12/03/21 documented as of this encounter
--- OUTSIDE RECORDS SUMMARY | 2024-12-25 12:06 | XMS_ITS | Encounter Summary ---
Author Organization [facility] Address [facility]6 [place] [address] Care Team Providers Care Senior Automation Engineer Name Role Phone Danielito Miles MD Primary Care Provider Hermilo Renee MD Unavailable Mikel Portillo MD Unavailable [phone] Jose Kumar MD Unavailable [phone] Amber Ramon APRN, PRIMER CHARGING TOOL SETTER-C Unavailable [phone] Theo Alford MD Primary Care Provider [phone] Encounter Details Date Type Department Care Team (Late st Contact Info) Description 12/04/[address] [facility] [address] [place] [address] Jose Kumar MD [address] [place] [address] bicycle rides Social History Tobacco [...] Please add patient to my schedule in [place] for December 09 and give him the date and time. * Jolie Hrenandez MA - 12/06/2021 10:10 AM CDT See other Bla[employer] message as well documented in this encounter Plan of Treatment Not on file documented as of this encounter Visit Diagnoses Not on filedocumented in this encounter Additional Health Concerns Infection Onset Date Last Indicated Resolved Time COVID-19 Rule Out 04/08/2022 04/08/2022 04/08/2022 8:52 PM GROUND HOST/HOSTESS Parainfluenza 04/08/2022 04/08/2022 04/18/2022 12: 33 AM GROUND HOST/HOSTESS Assessment Noted Time PHQ-9 Depression Total Score: 0 01/14/20 21 10:06 AM CDT documented as of this encounter Care Teams Senior Automation Engineer Relationship Specialty Start Date End Date Danielito Miles MD [address] [place] [phone] PCP - General FAMILY PRACTICE 11/17/17 09/25/23 Theo Alford MD [address] [place] [address] PCP - General INTERNAL MEDICINE 09/26/23 Hermilo Renee MD [address] [place] [phone] INTERNAL MEDICINE 05/26/21 Mikel Portillo MD [address] [place] [address] Consulting Physician CARDIOVASCULAR DISEASE 12/01/21 Jose Kumar MD [address] [place] [address] Consulting Physician PULMONARY DISEASE 12/03/21 Amber Ramon APRN, PRIMER CHARGING TOOL SETTER-C [address] [facility] 47 [place] [phone] NURSE PRACTITIONER 12/03/21 documented as of this encounter
--- OUTSIDE RECORDS SUMMARY | 2024-12-25 12:06 | XMS_ITS | Encounter Summary ---
Author Organization [facility] Address [facility]6 [place] [address] Care Team Providers Care Veneer Glue Jointer Feedback Name Role Phone Danielito Miles MD Primary Care Provider Hermilo Renee MD Unavailable Mikel Portillo MD Unavailable [phone] Jose Kumar MD Unavailable [phone] Amber Ramon APRN, PROMOTIONS SPECIALIST-C Unavailable Theo Alford MD Primary Care Provider [phone] Encounter Details Date Type Department Care Team (Late st Contact Info) Description 06/03/2021 MyChart Message Enc [facility] Medical [facility] [address] [place] [address] Jose Kumar MD [address] [place] [address] CPAP machine results Social History [...] Rule Out 04/08/2022 04/08/2022 04/08/2022 8:52 PM TURNAROUND PLANNER Parainfluenza 04/08/2022 04/08/2022 04/18/2022 12: 33 AM TURNAROUND PLANNER Assessment Noted Time PHQ-9 Depression Total Score: 0 01/14/20 21 10:06 AM CDT documented as of this encounter Care Teams Veneer Glue Jointer Feedback Relationship Specialty Start Date End Date Danielito Miles MD [address] [place] [phone] PCP - General FAMILY PRACTICE 11/17/17 09/25/23 Theo Alford MD [address] [place] [address] PCP - General INTERNAL MEDICINE 09/26/23 Hermilo Renee MD [address] [place] [phone] INTERNAL MEDICINE 05/26/21 Mikel Portillo MD [address] [place] [phone] Consulting Physician CARDIOVASCULAR DISEASE 12/01/21 Jose Kumar MD [address] [place] [address] Consulting Physician PULMONARY DISEASE 12/03/21 Amber Ramon, CELESTINA, PROMOTIONS SPECIALIST-C [address] [address] NURSE PRACTITIONER 12/03/21 documented as of this encounter
--- OUTSIDE RECORDS SUMMARY | 2024-12-25 12:06 | XMS_ITS | Encounter Summary ---
Author Organization [facility] Address [facility]6 [place] [address] Care Team Providers Care Cut Plug Packer Name Role Phone Danielito Miles MD Primary Care Provider [phone] Hermilo Renee MD Unavailable Mikel Portillo MD Unavailable [phone] Jose Kumar MD Unavailable [phone] Amber Ramon APRN, BEACH ATTENDANT-C Unavailable Theo Alford MD Primary Care Provider [phone] Encounter Details Date Type Department Care Team (Late st Contact Info) Description 12/15/[address] [facility] [address] [place] [address] Jose Kumar MD [address] [place] [address] Test results from adjunct faculty mathematics department Social History Tobacco Use Types Packs/Day Years [...] Rule Out 04/08/2022 04/08/2022 04/08/2022 8:52 PM REPAIR TABLE OPERATOR Parainfluenza 04/08/2022 04/08/2022 04/18/2022 12: 33 AM REPAIR TABLE OPERATOR Assessment Noted Time PHQ-9 Depression Total Score: 0 01/14/20 21 10:06 AM CDT documented as of this encounter Care Teams Cut Plug Packer Relationship Specialty Start Date End Date Danielito Miles MD [address] [place] [phone] PCP - General FAMILY PRACTICE 11/17/17 09/25/23 Theo Alford MD [address] [place] [address] PCP - General INTERNAL MEDICINE 09/26/23 Hermilo Renee MD [address] [place] [phone] INTERNAL MEDICINE 05/26/21 Mikel Portillo MD [address] [place] [phone] Consulting Physician CARDIOVASCULAR DISEASE 12/01/21 Jose Kumar MD [address] [place] [address] Consulting Physician PULMONARY DISEASE 12/03/21 Amber Ramon APRN, BEACH ATTENDANT-C [address] [place] [address] [address] [place] [address] NURSE PRACTITIONER 12/03/21 documented as of this encounter
--- OUTSIDE RECORDS SUMMARY | 2024-12-25 12:06 | XMS_ITS | Encounter Summary ---
Author Organization [facility] Address [facility]6 [place] [address] Care Team Providers Care Executive Vice President And Chief Operating Officer Name Role Phone Danielito Miles MD Primary Care Provider Hermilo Renee MD Unavailable Mikel Portillo MD Unavailable [phone] Jose Kumar MD Unavailable [phone] Amber Ramon APRN, WIRE PREPARATION WORKER-C Unavailable Theo Alford MD Primary Care Provider [phone] Encounter Details Date Type Department Care Team (Late st Contact Info) Description 12/13/2021 MyChart Message Enc [facility] Medical [facility] [address] [place] [address] Jose Kumar MD [address] [place] [address] vitamin D-3 Social History Tobacco [...] Rule Out 04/08/2022 04/08/2022 04/08/2022 8:52 PM POSTAL WORKER Parainfluenza 04/08/2022 04/08/2022 04/18/2022 12: 33 AM POSTAL WORKER Assessment Noted Time PHQ-9 Depression Total Score: 0 01/14/20 21 10:06 AM CDT documented as of this encounter Care Teams Executive Vice President And Chief Operating Officer Relationship Specialty Start Date End Date Danielito Miles MD [address] [place] [phone] PCP - General FAMILY PRACTICE 11/17/17 09/25/23 Theo Alford MD [address] [place] [address] PCP - General INTERNAL MEDICINE 09/26/23 Hermilo Renee MD [address] [place] [phone] INTERNAL MEDICINE 05/26/21 Mikel Portillo MD [address] [place] [address] Consulting Physician CARDIOVASCULAR DISEASE 12/01/21 Jose Kumar MD [address] [place] [address] Consulting Physician PULMONARY DISEASE 12/03/21 Amber Ramon, CELESTINA, WIRE PREPARATION WORKER-C [address] [phone] NURSE PRACTITIONER 12/03/21 documented as of this encounter
--- OUTSIDE RECORDS SUMMARY | 2024-12-25 12:06 | XMS_ITS | Encounter Summary ---
Author Organization [facility] Address [facility] [place] [address] Care Team Providers Care Vault Installer Name Role Phone Danielito Miles MD Primary Care Provider Hermilo Renee MD Unavailable Mikel Portillo MD Unavailable [phone] Jose Kumar MD Unavailable [phone] Amber Ramon APRN, VEGETABLE HARVEST WORKER-C Unavailable [phone] Theo Alford MD Primary Care Provider [phone] Encounter Details Date Type Department Care Team (Late st Contact Info) Description 04/13/[address] [facility] [address] [place] [address] Jose Kumar MD [address] [place] [address] CPAP has arrived Social History [...] have responded to patient through my chart RTISING INTERN * Jolie Hernandez MA - 04/13/2021 1:12 PM CST See attachment RTISING INTERN * Jose Kumar MD - 04/13/2021 11:39 AM CST I have responded to patient through my chart RTISING INTERN * Jolie Hernandez MA - 04/13/2021 11:25 AM CST Please respond to pt RTISING INTERN documented in this encounter Plan of Treatment Not on file documented as of this encounter Visit Diagnoses Not on filedocumented in this encounter Additional Health Concerns Infection Onset Date Last Indicated Resolved Time COVID-19 Rule Out 04/08/2022 04/08/2022 04/08/2022 8:52 PM ADVERTISING INTERN Parainfluenza 04/08/2022 04/08/2022 04/18/2022 12: 33 AM ADVERTISING INTERN Assessment Noted Time PHQ-9 Depression Total Score: 0 01/14/20 10:06 AM CDT documented as of this encounter Care Teams Vault Installer Relationship Specialty Start Date End Date Danielito Miles MD [address] [place] [phone] PCP - General FAMILY PRACTICE 11/17/17 09/25/23 Theo Alford MD [address] [place] [address] PCP - General INTERNAL MEDICINE 09/26/23 Hermilo Renee MD [address] [place] [phone] INTERNAL MEDICINE 05/26/21 Mikel Portillo MD [address] [place] [address] Consulting Physician CARDIOVASCULAR DISEASE 12/01/21 Jose Kumar MD [address] [place] [address] Consulting Physician PULMONARY DISEASE 12/03/21 Amber Ramon APRN, VEGETABLE HARVEST WORKER-C [address] [facility] [address] [place] [address] NURSE PRACTITIONER 12/03/21 documented as of this encounter
== END 2024-12-25 10:39 | disposition home or self-care (01) ==
LOC: CHSLAB 10:41
PROVIDERS: PCP Internal Medicine; Visit Provider Nurse Practitioner Family
DX: R10.9 Unspecified abdominal pain (principal); K59.00 Constipation, unspecified
CPT/HCPCS: 36415; 74019; 80053; 82150; 83690; 85027

== ENCOUNTER 2024-12-25 15:15 | Emergency (ER) | payer MEDICARE, SELFPAY ==
[2024-12-25 15:17] VITALS: BP 148/72; PULSE 73; RESP 16; TEMP 36.6; O2SAT 99
--- NOTE | 2024-12-25 15:30 | ED.GENADULT ---
HPI - General Adult General Chief complaint: Recheck/Abnormal Lab/Rx Stated complaint: abnormal lab Time Seen by Provider: 12/25/24 15:25 Source: patient Mode of arrival: ambulatory Limitations: no limitations History of Present Illness HPI narrative: 79-year-old male with a history of hypertension, BPH, diabetes mellitus, dyslipidemia, hypothyroidism, PEREZ on CPAP, CAD status post CABG presented from PCPs office for -- abnormal x-ray which revealed multiple distended loops of the bowel -- serum sodium of 128 patient presented to this ER 12/21/2024 for gastroenteritis. Subsequently the patient presented to his primary care physician today and had blood work. Which revealed multiple distended loops of the bowel with air-fluid levels. Blood work was also significant for hyponatremia with a sodium 128. The patient complains of -- nausea without vomiting or diarrhea. -- Decreased bowel movements. The patient has had decreased oral intake. The patient is passing flatus. No abdominal distension. No fever or chills. No chest pain or shortness of breath. Onset (ago): day(s) ( 4 days) Associated symptoms: denies other symptoms and nausea/vomiting Treatments prior to arrival: none Related Data Home Medications ?Medication ?Instructions ?Recorded ?Confirmed ?Last Taken ?Type escitalopram oxalate 10 mg tablet 10 mg PO DAILY 12/21/24 Unknown History finasteride 5 mg tablet 5 mg PO DAILY 12/21/24 Unknown History levothyroxine 100 mcg tablet 100 mcg PO DAILY 12/21/24 Unknown History lisinopril 20 mg tablet 20 mg PO DAILY 12/21/24 Unknown History montelukast 10 mg tablet 10 mg PO QPM 12/21/24 Unknown History tirzepatide 10 mg/0.5 mL 10 mg subcut WEEKLY 12/21/24 Unknown History subcutaneous pen injector (Mounjaro) tirzepatide 2.5 mg/0.5 mL 2.5 mg subcut WEEKLY 12/21/24 Unknown History subcutaneous pen injector (Mounjaro) valsartan 80 mg tablet 80 mg PO DAILY 12/21/24 Unknown History Allergies Allergy/AdvReac Type Severity Reaction Status Date / Time Penicillins Allergy Rash Verified 12/25/24 15:23 beta blockers Allergy Intermediate Unknown Uncoded 12/25/24 15:23 opiods Allergy Intermediate Unknown Uncoded 12/25/24 15:23 Review of Systems Review of Systems: All systems reviewed & are unremarkable except as noted in HPI and below Constitutional: Constitutional: Reports as per HPI and Reports no additional constitutional complaints Eyes: Eyes: Reports as per HPI and Reports no additional eye complaints ENT: Reports system reviewed and no additional complaints, except as documented and Reports as per HPI Cardiovascular: Cardiovascular: Reports as per HPI and Reports no additional cardiovascular complaints Respiratory: Respiratory: Reports as per HPI and Reports no additional respiratory complaints Gastrointestinal: Gastrointestinal: Reports as per HPI, Reports no additional gastrointestinal complaints and Reports nausea Genitourinary: Genitourinary: Reports no additional male genitourinary complaints and Reports as per HPI Musculoskeletal: Musculoskeletal: Reports no additional musculoskeletal complaints and Reports as per HPI Integumentary/Breasts: Skin/Breast: Reports system reviewed and no additional complaints, except as docu and Reports as per HPI Neurologic: Reports system reviewed and no additional complaints, except as documented and Reports as per HPI Psychiatric: Psychiatric: Reports no additional psychiatric complaints and Reports as per HPI Endocrine: Endocrine: Reports no additional endocrine complaints and Reports as per HPI Hematologic/Lymphatic: Hematologic/Lymphatic: Reports no additional hematologic/lymphatic complaints and Reports as per HPI Allergic/Immunologic: Allergic/Immunologic: Reports no additional allergic/immunologic complaints and Reports as per HPI [facility] Past Medical History Medical History (Updated 12/25/24 @ 16:13 by Jd Ritchie MD) Hypothyroidism BPH (benign prostatic hyperplasia) Hypertension Dyslipidemia CAD (coronary artery disease) Diabetes mellitus Surgical History Surgical History (Updated 12/25/24 @ 15:47 by Jd Ritchie MD) History of total right knee replacement Hx of cholecystectomy History of appendectomy Hx of CABG Social History Social History (Updated 12/25/24 @ 15:48 by Jd Ritchie MD) Social History: ex-smoker Smoking status: Never smoker Exam Narrative: afebrile. Vitals are stable. Const: Orientation/consciousness: patient oriented x3 Limitations: no limitations HENMT: Head: normal to inspection Ears: external ears normal Face/Nose/Sinus: Normal external nose present Face and sinus: normal facial exam Mouth: Yes Normal oral and palatal mucosa present Throat: posterior oropharynx normal Eyes: Conjunctivae: conjunctivae normal Pupils: Equal, round and reactive pupils present EOM: EOMs intact bilaterally Direct Ophthalmoscopy: no photophobia Neck: Neck: normal visual inspection, no lymphadenopathy and no meningeal signs Chest: Chest palpation & inspection: normal inspection of the chest Resp: Effort & Inspection: normal respiratory effort Auscultation: clear to auscultation bilaterally Other: Barrel chest Cardio: Rhythm: regular rhythm GI: GI Palp: Yes Soft to palpation Auscultation: normal bowel sounds Other: no tenderness/rigidity / rebound. Brisk bowel sounds no abdominal distension : General: Yes no CVA tenderness Back/Spine/Pelvis: Back: no CVA tenderness Skin: General skin exam: normal color Other: bilateral legs have chronic venous stasis changes. Neuro: General: patient oriented x3, moves all extremities, no meningeal signs, no focal motor deficits and CN's II-XI intact bilaterally Cranial nerves: Yes Nystagmus not present Speech: normal speech Gait exam (Neuro): Normal gait present Extrem: General: normal to inspection and no clubbing, cyanosis or edema Psych: Mental Status: mental status grossly normal Affect: normal affect Attitude: cooperative Course Course Emergency Course: Recent gastroenteritis with current distended loops of the bowel with air-fluid levels hyponatremia-- patient has been drinking a lot of free water which seems to be the most likely explanation. The patient certainly does not look dehydrated. neutropenia- Advised the patient to follow up with his primary care physician for a repeat white cell count. Vital Signs Vital signs: Vital Signs Temperature 36.6 C 12/25/24 15:17 Pulse Rate 73 12/25/24 15:17 Respiratory Rate 16 12/25/24 15:17 Blood Pressure 148/72 H 12/25/24 15:17 Pulse Oximetry 99 12/25/24 15:17 Oxygen Delivery Room Air 12/25/24 15:17 Temperature 36.6 C 12/25/24 15:17 Pulse Rate 73 12/25/24 15:17 Respiratory Rate 16 12/25/24 15:17 Blood Pressure 148/72 H 12/25/24 15:17 Pulse Oximetry 99 12/25/24 15:17 Oxygen Delivery Room Air 12/25/24 15:17 Medical Decision Making [facility] Narrative Medical decision making narrative: recent gastroenteritis hyponatremia neutropenia Differential Diagnosis Differential Diagnosis: Ileus Vital Signs Vital Signs: Vital Signs Temperature 36.6 C 12/25/24 15:17 Pulse Rate 73 12/25/24 15:17 Respiratory Rate 16 12/25/24 15:17 Blood Pressure 148/72 H 12/25/24 15:17 Pulse Oximetry 99 12/25/24 15:17 Oxygen Delivery Room Air 12/25/24 15:17 Temperature 36.6 C 12/25/24 15:17 Pulse Rate 73 12/25/24 15:17 Respiratory Rate 16 12/25/24 15:17 Blood Pressure 148/72 H 12/25/24 15:17 Pulse Oximetry 99 12/25/24 15:17 Oxygen Delivery Room Air 12/25/24 15:17 Discharge Plan Discharge Clinical Impression: Acute hyponatremia Neutropenia Qualifiers: Neutropenia type: unspecified Qualified Code(s): D70.9 - Neutropenia, unspecified Patient Disposition: Home Condition: Stable Instructions: Antibiotic Form, Hyponatremia (ED) Patient Language: Swedish Prescriptions: No Action escitalopram oxalate 10 mg tablet 10 mg PO DAILY levothyroxine 100 mcg tablet 100 mcg PO DAILY lisinopril 20 mg tablet 20 mg PO DAILY finasteride 5 mg tablet 5 mg PO DAILY Mounjaro 10 mg/0.5 mL pen injector 10 mg SUBCUT WEEKLY Mounjaro 2.5 mg/0.5 mL pen injector 2.5 mg SUBCUT WEEKLY valsartan 80 mg tablet 80 mg PO DAILY montelukast 10 mg tablet 10 mg PO QPM temazepam 15 mg capsule 15 mg PO HS PRN (Reason: sleep) Qty: 20 0RF ondansetron 4 mg tablet,disintegrating 4 mg PO Q6H PRN (Reason: nausea and vomiting) Qty: 14 0RF Follow-up/Referrals: Theo Alford MD [Primary Care Provider, Internal Medicine] Time of Disposition: 15:58
--- OUTSIDE RECORDS SUMMARY | 2024-12-25 16:45 | XMS_ITS | Encounter Summary ---
Author Organization [facility] Address [facility] [place] [address] Care Team Providers Care Gas Burner Operator Name Role Phone Danielito Miles MD Primary Care Provider Hermilo Renee MD Unavailable Mikel Portillo MD Unavailable [phone] Jose Kumar MD Unavailable [phone] Amber Ramon APRN, WOOD CAR BUILDER-C Unavailable [phone] Theo Alford MD Primary Care Provider [phone] Reason for Visit * Reason Onset Date Comments Results 01/07/2021 Encounter Details Date Type Department Care Team (Late st Contact Info) Description 01/07/2021 Telephone [facility] [address] [place] [address] Jeff Oliveros MD [address] [place] [address] Results Social History Tobacco Use [...] Rule Out 04/08/2022 04/08/2022 04/08/2022 8:52 PM CHIEF TECHNICAL OFFICER Parainfluenza 04/08/2022 04/08/2022 04/18/2022 12: 33 AM CHIEF TECHNICAL OFFICER documented as of this encounter Care Teams Gas Burner Operator Relationship Specialty Start Date End Date Danielito Miles MD [address] [place] [phone] PCP - General FAMILY PRACTICE 11/17/17 09/25/23 Theo Alford MD [address] [place] [address] PCP - General INTERNAL MEDICINE 09/26/23 Hermilo Renee MD [address] [place] [phone] INTERNAL MEDICINE 05/26/21 Mikel Portillo MD [address] [place] [address] Consulting Physician CARDIOVASCULAR DISEASE 12/01/21 Jose Kumar MD [address] [place] [address] Consulting Physician PULMONARY DISEASE 12/03/21 Amber Ramon, FARM PRODUCTS SHIPPER, WOOD CAR BUILDER-C [address] [facility] [address] [place] [address] NURSE PRACTITIONER 12/03/21 documented as of this encounter
--- OUTSIDE RECORDS SUMMARY | 2024-12-25 16:45 | XMS_ITS | Encounter Summary ---
Author Organization [facility] Address [facility] [place] [address] Care Team Providers Care Status Controller Name Role Phone Danielito Miles MD Primary Care Provider Hermilo Renee MD Unavailable Mikel Portillo MD Unavailable [phone] Jose Kumar MD Unavailable [phone] Amber Ramon APRN, DIVISION FIELD INSPECTOR-C Unavailable Theo Alford MD Primary Care Provider [phone] Encounter Details Date Type Department Care Team (Late st Contact Info) Description 12/13/2021 MyChart Message Enc [facility] Medical [facility] [address] [place] [address] Jose Kumar MD [address] [place] [address] vitamin D-3 Social History Tobacco [...] Rule Out 04/08/2022 04/08/2022 04/08/2022 8:52 PM PARKING MANAGER Parainfluenza 04/08/2022 04/08/2022 04/18/2022 12: 33 AM PARKING MANAGER Assessment Noted Time PHQ-9 Depression Total Score: 0 01/14/20 21 10:06 AM CDT documented as of this encounter Care Teams Status Controller Relationship Specialty Start Date End Date Danielito Miles MD [address] [place] [phone] PCP - General FAMILY PRACTICE 11/17/17 09/25/23 Theo Alford MD [address] [place] [address] PCP - General INTERNAL MEDICINE 09/26/23 Hermilo Renee MD [address] [place] [phone] INTERNAL MEDICINE 05/26/21 Mikel Portillo MD [address] [place] [address] Consulting Physician CARDIOVASCULAR DISEASE 12/01/21 Jose Kumar MD [address] [place] [address] Consulting Physician PULMONARY DISEASE 12/03/21 Amber Ramon, CELESTINA, DIVISION FIELD INSPECTOR-C [address] [phone] NURSE PRACTITIONER 12/03/21 documented as of this encounter
--- OUTSIDE RECORDS SUMMARY | 2024-12-25 16:45 | XMS_ITS | Encounter Summary ---
Author Organization [facility] Address [facility]6 [place] [address] Care Team Providers Care Platform Loader Name Role Phone Danielito Miles MD Primary Care Provider Hermilo Renee MD Unavailable Mikel Portillo MD Unavailable Jose Kumar MD Unavailable [phone] Amber Ramon APRN, BROKERAGE CLERK-C Unavailable Theo Alford MD Primary Care Provider [phone] Encounter Details Date Type Department Care Team (Late st Contact Info) Description 01/05/2021 PrePayMe Message Enc [facility] [address] [place] [address] Amber Ramon APRN, BROKERAGE CLERK-C [address] [facility] [address] [place] [address] RE: Other Social History Tobacco [...] Rule Out 04/08/2022 04/08/2022 04/08/2022 8:52 PM BUSINESS LINE MANAGER Parainfluenza 04/08/2022 04/08/2022 04/18/2022 12: 33 AM BUSINESS LINE MANAGER documented as of this encounter Care Teams Platform Loader Relationship Specialty Start Date End Date Danielito Miles MD [address] [place] [phone] PCP - General FAMILY PRACTICE 11/17/17 09/25/23 Theo Alford MD [address] [place] [phone] PCP - General INTERNAL MEDICINE 09/26/23 Hermilo Renee MD [address] [place] [phone] INTERNAL MEDICINE 05/26/21 Mikel Potrillo MD [address] [place] [address] Consulting Physician CARDIOVASCULAR DISEASE 12/01/21 Jose Kumar MD [address] [place] [address] Consulting Physician PULMONARY DISEASE 12/03/21 Amber Ramon, INSPECTOR AIR CARRIER, BROKERAGE CLERK-C [address] [address] NURSE PRACTITIONER 12/03/21 documented as of this encounter
--- OUTSIDE RECORDS SUMMARY | 2024-12-25 16:45 | XMS_ITS | Encounter Summary ---
Author Organization [facility] Address [facility]6 [place] [address] Care Team Providers Care Guitar Player Name Role Phone Danielito Miles MD Primary Care Provider Hermilo Renee MD Unavailable Mikel Portillo MD Unavailable [phone] Jose Kumar MD Unavailable [phone] Amber Ramon APRN, FOSTER WINDER-C Unavailable Theo Alford MD Primary Care Provider [phone] Encounter Details Date Type Department Care Team (Late st Contact Info) Description 06/03/2021 MyChart Message Enc [facility]ty Clinic [address] [place] [address] Jose Kumar MD [address] [place] [address] CPAP machine results Social History [...] Rule Out 04/08/2022 04/08/2022 04/08/2022 8:52 PM DIRECTOR OF ACQUISITION MARKETING Parainfluenza 04/08/2022 04/08/2022 04/18/2022 12: 33 AM DIRECTOR OF ACQUISITION MARKETING Assessment Noted Time PHQ-9 Depression Total Score: 0 01/14/20 21 10:06 AM CDT documented as of this encounter Care Teams Guitar Player Relationship Specialty Start Date End Date Danielito Miles MD [address] [place] [phone] PCP - General FAMILY PRACTICE 11/17/17 09/25/23 Theo Alford MD [address] [place] [address] PCP - General INTERNAL MEDICINE 09/26/23 Hermilo Renee MD [address] [place] [phone] INTERNAL MEDICINE 05/26/21 Mikel Portillo MD [address] [place] [address] Consulting Physician CARDIOVASCULAR DISEASE 12/01/21 Jose Kumar MD [address] [place] [address] Consulting Physician PULMONARY DISEASE 12/03/21 Amber Ramon, CELESTINA, FOSTER WINDER-C [address] [address] NURSE PRACTITIONER 12/03/21 documented as of this encounter
--- OUTSIDE RECORDS SUMMARY | 2024-12-25 16:45 | XMS_ITS | Encounter Summary ---
Author Organization [facility] Address [facility] [place] [address] Care Team Providers Care Insole Rounder Name Role Phone Danielito Miles MD Primary Care Provider Hermilo Renee MD Unavailable Mikel Portillo MD Unavailable [phone] Jose Kumar MD Unavailable [phone] Amber Ramon APRN, LEARNING SUPPORT ASSISTANT-C Unavailable Theo Alford MD Primary Care Provider [phone] Encounter Details Date Type Department Care Team (Late st Contact Info) Description 04/13/2021 MyChart Message Enc [facility] [address] [place] [address] Jose Kumar MD [address] [place] [address] MRI Social History Tobacco Use [...] have responded to patient through my chart ID OPERATOR * Jolie Hernandez MA - 04/13/2021 11:25 AM CST Please respond to pt ID OPERATOR documented in this encounter Plan of Treatment Not on file documented as of this encounter Visit Diagnoses Not on filedocumented in this encounter Additional Health Concerns Infection Onset Date Last Indicated Resolved Time COVID-19 Rule Out 04/08/2022 04/08/2022 04/08/2022 8:52 PM EUCLID OPERATOR Parainfluenza 04/08/2022 04/08/2022 04/18/2022 12: 33 AM EUCLID OPERATOR Assessment Noted Time PHQ-9 Depression Total Score: 0 01/14/20 21 10:06 AM CDT documented as of this encounter Care Teams Insole Rounder Relationship Specialty Start Date End Date Danielito Miles MD [address] [place] [phone] PCP - General FAMILY PRACTICE 11/17/17 09/25/23 Theo Alford MD [address] [place] [address] PCP - General INTERNAL MEDICINE 09/26/23 Hermilo Renee MD [address] [place] [phone] INTERNAL MEDICINE 05/26/21 Mikel Portillo MD [address] [place] [address] Consulting Physician CARDIOVASCULAR DISEASE 12/01/21 Jose Kumar MD [address] [place] [address] Consulting Physician PULMONARY DISEASE 12/03/21 Amber Ramon, LOTTERIES AGENT, LEARNING SUPPORT ASSISTANT-C [address] [facility] [address] [place] [phone] NURSE PRACTITIONER 12/03/21 documented as of this encounter
--- OUTSIDE RECORDS SUMMARY | 2024-12-25 16:45 | XMS_ITS | Encounter Summary ---
Author Organization [facility] Address [facility] [place] [address] Care Team Providers Care Sports Journalist Name Role Phone Danielito Miles MD Primary Care Provider Hermilo Renee MD Unavailable Mikel Portillo MD Unavailable [phone] Jose Kumar MD Unavailable [phone] Amber Ramon APRN, VP PRODUCTION-C Unavailable Theo Alford MD Primary Care Provider [phone] Encounter Details Date Type Department Care Team (Late st Contact Info) Description 12/04/2021 MyChart Message Enc [facility] [address] [place] [address] Jose Kumar MD [address] [place] [address] bicycle rides Social History Tobacco [...] Please add patient to my schedule in [place] for December 09 and give him the date and time. * Jolie Hernandez MA - 12/06/2021 10:10 AM CDT See other [employer] message as well documented in this encounter Plan of Treatment Not on file documented as of this encounter Visit Diagnoses Not on filedocumented in this encounter Additional Health Concerns Infection Onset Date Last Indicated Resolved Time COVID-19 Rule Out 04/08/2022 04/08/2022 04/08/2022 8:52 PM WOOD MODEL BUILDER Parainfluenza 04/08/2022 04/08/2022 04/18/2022 12: 33 AM WOOD MODEL BUILDER Assessment Noted Time PHQ-9 Depression Total Score: 0 01/14/20 21 10:06 AM CDT documented as of this encounter Care Teams Sports Journalist Relationship Specialty Start Date End Date Danielito Miles MD [address] [place] [phone] PCP - General FAMILY PRACTICE 11/17/17 09/25/23 Theo Alford MD [address] [place] [address] PCP - General INTERNAL MEDICINE 09/26/23 Hermilo Renee MD [address] [place] [phone] INTERNAL MEDICINE 05/26/21 Mikel Portillo MD [address] [place] [address] Consulting Physician CARDIOVASCULAR DISEASE 12/01/21 Jose Kumar MD [address] [place] [address] Consulting Physician PULMONARY DISEASE 12/03/21 Amber Ramon APRN, VP PRODUCTION-C [address] [facility] [address] [place] [phone] NURSE PRACTITIONER 12/03/21 documented as of this encounter
--- OUTSIDE RECORDS SUMMARY | 2024-12-25 16:45 | XMS_ITS | Encounter Summary ---
Author Organization [facility] Address [facility] [place] [address] Care Team Providers Care Locker Plant Attendant Name Role Phone Danielito Miles MD Primary Care Provider Hermilo Renee MD Unavailable Mikel Portillo MD Unavailable [phone] Jose Kumar MD Unavailable [phone] Amber Ramon APRN, COMPUTED TOMOGRAPHY SCANNER OPERATOR-C Unavailable Theo Alford MD Primary Care Provider [phone] Encounter Details Date Type Department Care Team (Late st Contact Info) Description 08/10/2021 MyChart Message Enc [facility] [address] [place] [address] Jose Kumar MD [address] [place] [address] July 23 CPAP results Social [...] Rule Out 04/08/2022 04/08/2022 04/08/2022 8:52 PM HOME APPLIANCE WASHING MACHINE MECHANIC Parainfluenza 04/08/2022 04/08/2022 04/18/2022 12: 33 AM HOME APPLIANCE WASHING MACHINE MECHANIC Assessment Noted Time PHQ-9 Depression Total Score: 0 01/14/20 21 10:06 AM CDT documented as of this encounter Care Teams Locker Plant Attendant Relationship Specialty Start Date End Date Danielito Miles MD [address] [place] [phone] PCP - General FAMILY PRACTICE 11/17/17 09/25/23 Theo Alford MD [address] [place] [address] PCP - General INTERNAL MEDICINE 09/26/23 Hermilo Renee MD [address] [place] [phone] INTERNAL MEDICINE 05/26/21 Mikel Portillo MD [address] [place] [address] Consulting Physician CARDIOVASCULAR DISEASE 12/01/21 Jose Kumar MD [address] [place] [address] Consulting Physician PULMONARY DISEASE 12/03/21 Amber Ramon, CELESTINA, COMPUTED TOMOGRAPHY SCANNER OPERATOR-C [address] [phone] NURSE PRACTITIONER 12/03/21 documented as of this encounter
--- OUTSIDE RECORDS SUMMARY | 2024-12-25 16:45 | XMS_ITS | Encounter Summary ---
Author Organization [facility] Address [facility]6 [place] [address] Care Team Providers Care Infrastructure Tech Name Role Phone Danielito Miles MD Primary Care Provider Hermilo Renee MD Unavailable Mikel Portillo MD Unavailable [phone] Joes Kumar MD Unavailable [phone] Amber Ramon APRN, CUSTOMER QUALITY SPECIALIST-C Unavailable Theo Alford MD Primary Care Provider [phone] Encounter Details Date Type Department Care Team (Late st Contact Info) Description 04/07/2022 Hospital Follow-up Call [facility] Cardiovascular Care Unit [address] [place] [address] Shannon Asher, RN Social History [...] Coronavirus/COVID-19? No / Unsure 04/08/2022 11:57 AM SYSTEMS SOFTWARE SPECIALIST documented as of this encounter Functional Status [...] Assessment Author Status No 03/29/2022 6:10 AM SYSTEMS SOFTWARE SPECIALIST Activ e * RETIRED Are you blind or do you have serious difficulty seeing, even when wearing glasses? Answer Date of Assessment Author Status No 03/29/2022 6:10 AM SYSTEMS SOFTWARE SPECIALIST Activ e * Do you have serious [...] 6:26 PM Indira Downing RN Active * [place] Suicide Severity Rating Scale (Screener/Recent Self-Report) Question Answer Date of Assessment Author Status 1. Wish to be (Past 1 Month) No 04/08/2022 6:26 PM SYSTEMS SOFTWARE SPECIALIST Indira Bonilla RN Activ e 2. Non-Specific [...] Date Author Status No 03/29/2022 6:10 AM SYSTEMS SOFTWARE SPECIALIST Maritza Manzo RN Active documented in this [...] Rule Out 04/08/2022 04/08/2022 04/08/2022 8:52 PM SYSTEMS SOFTWARE SPECIALIST Parainfluenza 04/08/2022 04/08/2022 04/18/2022 12: 33 AM SYSTEMS SOFTWARE SPECIALIST Assessment Noted Time PHQ-9 Depression Total Score: 0 01/14/20 21 10:06 AM CDT documented as of this encounter Care Teams Infrastructure Tech Relationship Specialty Start Date End Date Danielito Miles MD [address] [place] [phone] PCP - General FAMILY PRACTICE 11/17/17 09/25/23 Theo Alford MD [address] [place] [address] PCP - General INTERNAL MEDICINE 09/26/23 Hermilo Renee MD [address] [place] [phone] INTERNAL MEDICINE 05/26/21 Mikel Portillo MD [address] [place] [address] Consulting Physician CARDIOVASCULAR DISEASE 12/01/21 Jose Kumar MD [address] [place] [address] Consulting Physician PULMONARY DISEASE 12/03/21 Amber Ramon APRN, CUSTOMER QUALITY SPECIALIST-C [address] [facility] [address] [place] [phone] NURSE PRACTITIONER 12/03/21 documented as of this encounter
--- OUTSIDE RECORDS SUMMARY | 2024-12-25 16:45 | XMS_ITS | Encounter Summary ---
Author Organization [facility] Address [facility]6 [place] [address] Care Team Providers Care Mud Analysis Well Logging Operator Name Role Phone Danielito Miles MD Primary Care Provider Hermilo Renee MD Unavailable Mikel Portillo MD Unavailable [phone] Jose Kumar MD Unavailable [phone] Amber Ramon APRN, SERVICE LINE LAYER-C Unavailable Theo Alford MD Primary Care Provider [phone] Encounter Details Date Type Department Care Team (Late st Contact Info) Description 12/13/2021 MyChart Message Enc [facility] Medical Group [facility] [address] [place] [address] Jose Kumar MD [address] [place] [address] chest x-ray Social History Tobacco [...] Rule Out 04/08/2022 04/08/2022 04/08/2022 8:52 PM FILTER CLOTH MAKER Parainfluenza 04/08/2022 04/08/2022 04/18/2022 12: 33 AM FILTER CLOTH MAKER Assessment Noted Time PHQ-9 Depression Total Score: 0 01/14/20 21 10:06 AM CDT documented as of this encounter Care Teams Mud Analysis Well Logging Operator Relationship Specialty Start Date End Date Danielito Miles MD [address] [place] [phone] PCP - General FAMILY PRACTICE 11/17/17 09/25/23 Theo Alford MD [address] [place] [address] PCP - General INTERNAL MEDICINE 09/26/23 Hermilo Renee MD [address] [place] [phone] INTERNAL MEDICINE 05/26/21 Mikel Portillo MD [address] [place] [address] Consulting Physician CARDIOVASCULAR DISEASE 12/01/21 Jose Kumar MD [address] [place] [address] Consulting Physician PULMONARY DISEASE 12/03/21 Amber Ramon, CELESTINA, SERVICE LINE LAYER-C [address] [phone] NURSE PRACTITIONER 12/03/21 documented as of this encounter
--- OUTSIDE RECORDS SUMMARY | 2024-12-25 16:45 | XMS_ITS | Encounter Summary ---
Author Organization [facility] Address [facility]6 [place] [address] Care Team Providers Care Product Specialist Name Role Phone Danielito Miles MD Primary Care Provider Hermilo Renee MD Unavailable Mikel Portillo MD Unavailable [phone] Jose Kumar MD Unavailable [phone] Amber Ramon APRN PATIENT SAFETY MANAGER-C Unavailable Theo Alford MD Primary Care Provider [phone] Encounter Details Date Type Department Care Team (Late st Contact Info) Description 02/11/2022 8hands Message Enc [facility] ield [address] [place], [place] [address] Lucina Barba, COLEEN [address] [facility] 2nd [place] [address] [place] [address] CT results Social History Tobacco [...] Rule Out 04/08/2022 04/08/2022 04/08/2022 8:52 PM METAL COATER OPERATOR Parainfluenza 04/08/2022 04/08/2022 04/18/2022 12: 33 AM METAL COATER OPERATOR Assessment Noted Time PHQ-9 Depression Total Score: 0 01/14/20 21 10:06 AM CDT documented as of this encounter Care Teams Product Specialist Relationship Specialty Start Date End Date Danielito Miles MD [address] [place] [phone] PCP - General FAMILY PRACTICE 11/17/17 09/25/23 Theo Alford MD [address] [place] [address] PCP - General INTERNAL MEDICINE 09/26/23 Hermilo Renee MD [address] [place] [phone] INTERNAL MEDICINE 05/26/21 Mikel Portillo MD [address] [place] [address] Consulting Physician CARDIOVASCULAR DISEASE 12/01/21 Jose Kumar MD [address] [place] [address] Consulting Physician PULMONARY DISEASE 12/03/21 Amber Ramon APRN, PATIENT SAFETY MANAGER-C [address] [facility] [address] [place] [phone] NURSE PRACTITIONER 12/03/21 documented as of this encounter
--- OUTSIDE RECORDS SUMMARY | 2024-12-25 16:45 | XMS_ITS | Clinical Summary ---
Author Organization [facility] Address [facility]6 [place] [address] Care Team Providers Care Senior Game Developer Name Role Phone Hermilo Renee MD Unavailable [...] Comments Blood Pressure 119/55 05/04/2022 2:30 AM EXECUTIVE VP Pulse 88 05/04/2022 2:30 AM EXECUTIVE VP Temperature 37.1 C (98.7 F) 05/03/2022 11:59 AM EXECUTIVE VP Respiratory Rate 21 05/04/2022 2:30 AM EXECUTIVE VP Oxygen Saturation 99% 05/04/2022 2:30 AM EXECUTIVE VP Inhaled Oxygen Concentration - - Weight 81.2 kg (179 lb) 05/03/2022 11:59 AM EXECUTIVE VP Height 167.6 cm (5' 6) 05/03/2022 11:59 AM EXECUTIVE VP Body Mass Index 28.89 05/03/2022 11:59 AM EXECUTIVE VP Plan of Treatment Health Maintenance Due Date [...] 5:07 PM 02/09/2022 6:15 PM Care Teams Senior Game Developer Relationship Specialty Start Date End Date Theo Alford MD [address] [place] [address] PCP - General INTERNAL MEDICINE 09/26/23 Hermilo Renee MD INTERNAL MEDICINE 05/26/21 Mikel Portillo MD [address] [place] [address] Consulting Physician CARDIOVASCULAR DISEASE 12/01/21 Jose Kumar MD [address] [place] [address] Consulting Physician PULMONARY DISEASE 12/03/21 Amber Ramon APRN, VEIN PUMPER-C [address] [facility] [address] [place] [phone] NURSE PRACTITIONER 12/03/21
--- OUTSIDE RECORDS SUMMARY | 2024-12-25 16:45 | XMS_ITS | Encounter Summary ---
Author Organization [facility] Address [facility]6 [place] [address] Care Team Providers Care Electroencephalograph Technician Name Role Phone Danielito Miles MD Primary Care Provider Hermilo Renee MD Unavailable Mikel Portillo MD Unavailable [phone] Jose Kmuar MD Unavailable [phone] Amber Ramon APRN, SECURITY CONSULTANT-C Unavailable Theo Alford MD Primary Care Provider [phone] Encounter Details Date Type Department Care Team (Late st Contact Info) Description 12/04/2021 MyChart Message Enc [facility] Medical Group [facility] [address] [place] [address] Jose Kumar MD [address] [place] [address] bicycle rides continued Social History [...] Rule Out 04/08/2022 04/08/2022 04/08/2022 8:52 PM AUDIT PRACTICE INTERN Parainfluenza 04/08/2022 04/08/2022 04/18/2022 12: 33 AM AUDIT PRACTICE INTERN Assessment Noted Time PHQ-9 Depression Total Score: 0 01/14/20 21 10:06 AM CDT documented as of this encounter Care Teams Electroencephalograph Technician Relationship Specialty Start Date End Date Danielito Miles MD [address] [place] [phone] PCP - General FAMILY PRACTICE 11/17/17 09/25/23 Theo Alford MD [address] [place] [address] PCP - General INTERNAL MEDICINE 09/26/23 Hermilo Renee MD [address] [place] [phone] INTERNAL MEDICINE 05/26/21 Mikel Portillo MD [address] [place] [address] Consulting Physician CARDIOVASCULAR DISEASE 12/01/21 Jose Kumar MD [address] [place] [address] Consulting Physician PULMONARY DISEASE 12/03/21 Amber Ramon, CELESTINA, SECURITY CONSULTANT-C [address] [phone] NURSE PRACTITIONER 12/03/21 documented as of this encounter
--- OUTSIDE RECORDS SUMMARY | 2024-12-25 16:45 | XMS_ITS | Encounter Summary ---
Author Organization [facility] Address [facility]6 [place] [address] Care Team Providers Care Certified Family Mediator Name Role Phone Danielito Miles MD Primary Care Provider Hermilo Renee MD Unavailable Mikel Portillo MD Unavailable [phone] Jose Kumar MD Unavailable [phone] Amber Ramon APRN, CARTON MAKING MACHINE OPERATOR-C Unavailable Theo Alford MD Primary Care Provider [phone] Encounter Details Date Type Department Care Team (Late st Contact Info) Description 04/13/2021 MyChart Message Enc [facility] Medical Group Pul[facility] [address] [place] [address] Jose Kumar MD [address] [place] [address] CPAP has arrived Social History [...] have responded to patient through my chart F ENGINEER DRILLING AND RECOVERY * Jolie Hernandez MA - 04/13/2021 1:12 PM CST See attachment F ENGINEER DRILLING AND RECOVERY * Jose Kumar MD - 04/13/2021 11:39 AM CST I have responded to patient through my chart F ENGINEER DRILLING AND RECOVERY * Jolie Hernandez MA - 04/13/2021 11:25 AM CST Please respond to pt F ENGINEER DRILLING AND RECOVERY documented in this encounter Plan of Treatment Not on file documented as of this encounter Visit Diagnoses Not on filedocumented in this encounter Additional Health Concerns Infection Onset Date Last Indicated Resolved Time COVID-19 Rule Out 04/08/2022 04/08/2022 04/08/2022 8:52 PM CHIEF ENGINEER DRILLING AND RECOVERY Parainfluenza 04/08/2022 04/08/2022 04/18/2022 12: 33 AM CHIEF ENGINEER DRILLING AND RECOVERY Assessment Noted Time PHQ-9 Depression Total Score: 0 01/14/20 10:06 AM CDT documented as of this encounter Care Teams Certified Family Mediator Relationship Specialty Start Date End Date Danielito Miles MD [address] [place] [phone] PCP - General FAMILY PRACTICE 11/17/17 09/25/23 Theo Alford MD [address] [place] [address] PCP - General INTERNAL MEDICINE 09/26/23 Hermilo Renee MD [address] [place] [phone] INTERNAL MEDICINE 05/26/21 Mikel Portillo MD [address] [place] [address] Consulting Physician CARDIOVASCULAR DISEASE 12/01/21 Jose Kumar MD [address] [place] [address] Consulting Physician PULMONARY DISEASE 12/03/21 Amber Ramon APRN, CARTON MAKING MACHINE OPERATOR-C [address] [facility] [address] [place] [address] NURSE PRACTITIONER 12/03/21 documented as of this encounter
--- OUTSIDE RECORDS SUMMARY | 2024-12-25 16:45 | XMS_ITS | Clinical Summary ---
Author Organization [facility] Address [address] [place] [phone] Phone Care Team Providers Care Target Man Name Role Phone Danielito Miles MD Primary [...] for Shortness of Breath. Active cpap medical insurance clerk Low pressure 5. High pressure 20. 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, S/P CABG on [...] on file Legal Sex Male 7:19 PM HUMAN RESOURCES COMPENSATION ANALYST Gender Identity Not on file Sexual Orientation Not on file Last Filed Vital Signs Vital Sign Reading Time Taken Comments Blood Pressure 116/58 05/19/2022 11:47 AM HUMAN RESOURCES COMPENSATION ANALYST Pulse 96 05/07/2022 10:27 AM HUMAN RESOURCES COMPENSATION ANALYST Temperature 36.4 C (97.6 F) 05/19/2022 11:47 AM HUMAN RESOURCES COMPENSATION ANALYST Respiratory Rate 18 05/07/2022 10:27 AM HUMAN RESOURCES COMPENSATION ANALYST Oxygen Saturation 95% 05/07/2022 10:27 AM HUMAN RESOURCES COMPENSATION ANALYST Inhaled Oxygen Concentration - - Weight 78.5 kg (173 lb) 05/19/2022 11:47 AM HUMAN RESOURCES COMPENSATION ANALYST Height 167.6 cm (5' 6) 05/19/2022 11:47 AM HUMAN RESOURCES COMPENSATION ANALYST Body Mass Index 27.92 05/19/2022 11:47 AM HUMAN RESOURCES COMPENSATION ANALYST Plan of Treatment Health Maintenance Due Date [...] 12/01/2020, 05/02/2020 Medical Devices Implanted Type Area Vacuum Caster Device Identifier Shelf Expiration Date Model / Serial / Lot Clip Ti Med/Lg 3200 - [facility] [place] [id number] Implanted:Qty: 1 on 05/05/2022 by Wilber Lockett MD at [facility] N/A: Abdomen TELEFLEX- WECK CLOSURE SYS 12/23/2026 [id number] / / [id number] Clip Ti Med/Lg 3200 - [facility] [place] [id number] Implanted:Qty: 1 on 05/05/2022 by Wilber Lockett MD at [facility] N/A: Abdomen TELEFLEX- WECK CLOSURE SYS 11/29/2026 [id number] / / [id number] Hemostatic Surg Powder 3013sp - [id number] Implanted:Qty: 1 on 05/05/2022 by Wilber Lockett MD at [facility] Hemostatic N/A: Abdomen J[employer]- [employer] 06/22/2023 [id number] / / [id number] Insurance AETNA O [facility] RX AETNA Medicare Part D Advance Directives For more information, please contact: [phone] * Full Code (Latest Code Status on File) Date Activated Date Inactivated Comments 05/06/2022 7:51 PM 05/07/2022 7:28 PM * Full Code Date Activated Date Inactivated Comments 05/04/2022 8:44 AM 05/06/2022 7:50 PM * Default Full Code - Needs Discussion Date Activated Date Inactivated Comments 05/04/2022 4:41 AM 05/04/2022 8:43 AM Care Teams Target Man Relationship Specialty Start Date End Date Danielito Miles MD [address] [place] [address] PCP - General Family Practice 05/04/22
--- OUTSIDE RECORDS SUMMARY | 2024-12-25 16:45 | XMS_ITS | Clinical Summary ---
Author Organization [facility] Address [address] [place] [address] Care Team Providers Care Crystallography Teacher Name Role Phone Danielito Miles MD Primary Care Provider [phone] Aureliano Sweeney MD Unavailable [phone] Allergies Active Allergy Reactions Criticality Noted Date [...] mcg tablet Take 100 mcg by mouth back digger operator before breakfast Active metFORMIN (GLUCOPHAGE) 500 [...] Take 1,000 mg by mouth daily Active fbov4-jwc-vad-fis h oil-L.casei 120 mg-400 mg -4 billion cell capsule Take 460 mg by mouth daily after lunch Active Active Problems Problem Noted Date Diagnosed Date Lower leg mass, right 07/08/2021 Overview (07/08/2021): Added automatically from request for surgery [id number] Assessment & Plan (07/29/2021 11:24 AM CDT): [...] therapy. Assessment & Plan (06/25/2021 8:16 AM CASINO FLOOR PERSON): Impression: Chronic diabetes mellitus controlled with insulin. Patient reports his last A1c was 7.3. Plan: Medications reviewed, no changes made. Continue glucose monitoring and management as per primary care. Pain and swelling of right lower extremity 06/25 Assessment & Plan (06/25/2021 8:38 AM CASINO FLOOR PERSON): Impression: Patient complains of swelling to his [...] management. Assessment & Plan (06/25/2021 8:17 AM CASINO FLOOR PERSON): Impression: Chronic stable hypertension, controlled medications. Blood [...] degenerative problems causes SOB, seeing specialist at [facility]. soon Sleep apnea CPAP [place] (hard of hearing) mild Arthritis Hypothyroid on [...] on file Legal Sex Male 7:24 PM CASINO FLOOR PERSON Gender Identity Not on file Sexual Orientation [...] MD LAB BLOOD ORDERABLES Final Result [place] [address] [facility] Department [place] [address] from Last 3 Months or Most Recently Relevant to Health Maintenance Insurance MEDICARE HMO/PPO MEDICARE HMO/PPO MEDICARE HMO/PPO Care Teams Crystallography Teacher Relationship Specialty Start Date End Date Danielito Miles MD PCP - General Family Medicine 05/21/21 Aureliano Sweeney MD [address] [facility] [address] [place] [address] Surgeon Surgery 07/15/21
--- OUTSIDE RECORDS SUMMARY | 2024-12-25 16:45 | XMS_ITS | Encounter Summary ---
Author Organization [facility] Address [facility]6 [place] [address] Care Team Providers Care Home Health Clinical Supervisor Name Role Phone Danielito Miles MD Primary Care Provider Hermilo Renee MD Unavailable Mikel Portillo MD Unavailable [phone] Jose Kumar MD Unavailable [phone] Amber Ramon APRN, CATERING SERVER-C Unavailable [phone] Theo Alford MD Primary Care Provider [phone] Encounter Details Date Type Department Care Team (Latest Contact Info) Description 01/05/2022 Bell Boardz Message [facility] [place] [address] Jeff Oliveros MD [address] [place] [address] appointment Social History Tobacco Use [...] Rule Out 04/08/2022 04/08/2022 04/08/2022 8:52 PM HOTEL OFFICE MANAGER Parainfluenza 04/08/2022 04/08/2022 04/18/2022 12: 33 AM HOTEL OFFICE MANAGER Assessment Noted Time PHQ-9 Depression Total Score: 0 01/14/20 21 10:06 AM CDT documented as of this encounter Care Teams Home Health Clinical Supervisor Relationship Specialty Start Date End Date Danielito Miles MD [address] [place] [phone] PCP - General FAMILY PRACTICE 11/17/17 09/25/23 Theo Alford MD [address] [place] [address] PCP - General INTERNAL MEDICINE 09/26/23 Hermilo Renee MD [address] [place] [phone] INTERNAL MEDICINE 05/26/21 Mikel Portillo MD [address] [place] [address] Consulting Physician CARDIOVASCULAR DISEASE 12/01/21 Jose Kumar MD [address] [place] [address] Consulting Physician PULMONARY DISEASE 12/03/21 Amber Ramon, CELESTINA, CATERING SERVER-C [address] [phone] NURSE PRACTITIONER 12/03/21 documented as of this encounter
--- OUTSIDE RECORDS SUMMARY | 2024-12-25 16:45 | XMS_ITS | Encounter Summary ---
Author Organization [facility] Address [facility] [place] [address] Care Team Providers Care Drain Layer Name Role Phone Danielito Miles MD Primary Care Provider Hermilo Renee MD Unavailable Mikel Portillo MD Unavailable [phone] Jose Kumar MD Unavailable [phone] Amber Ramon APRN, CARDIAC EXERCISE SPECIALIST-C Unavailable Theo Alford MD Primary Care Provider [phone] Encounter Details Date Type Department Care Team (Late st Contact Info) Description 12/15/2021 MyChart Message Enc [facility] [address] [place] [address] Jose Kumar MD [address] [place] [address] Test results from cosmetic sales consultant Social History Tobacco Use Types Packs/Day Years [...] Rule Out 04/08/2022 04/08/2022 04/08/2022 8:52 PM NATURAL GAS PLANT TECHNICIAN Parainfluenza 04/08/2022 04/08/2022 04/18/2022 12: 33 AM NATURAL GAS PLANT TECHNICIAN Assessment Noted Time PHQ-9 Depression Total Score: 0 01/14/20 21 10:06 AM CDT documented as of this encounter Care Teams Drain Layer Relationship Specialty Start Date End Date Danielito Miles MD [address] [place] [phone] PCP - General FAMILY PRACTICE 11/17/17 09/25/23 Theo Alford MD [address] [place] [address] PCP - General INTERNAL MEDICINE 09/26/23 Hermilo Renee MD [address] [place] [phone] INTERNAL MEDICINE 05/26/21 Mikel Portillo MD [address] [place] [phone] Consulting Physician CARDIOVASCULAR DISEASE 12/01/21 Jose Kumar MD [address] [place] [address] Consulting Physician PULMONARY DISEASE 12/03/21 Amber Ramon APRN, CARDIAC EXERCISE SPECIALIST-C [address] [place] [address] [address] [place] [address] NURSE PRACTITIONER 12/03/21 documented as of this encounter
--- OUTSIDE RECORDS SUMMARY | 2024-12-25 16:45 | XMS_ITS | Encounter Summary ---
Author Organization [facility] Address [address] [place] [address] Care Team Providers Care Fire Protection Equipment Technician Name Role Phone Danielito Miles MD Primary Care Provider Hermilo Reene MD Unavailable Mikel Portillo MD Unavailable [phone] Jose Kumar MD Unavailable [phone] Amber Ramon APRN, FIRE HAZARD INSPECTOR-C Unavailable Theo Alford MD Primary Care Provider [phone] Encounter Details Date Type Department Care Team (Late st Contact Info) Description 09/29/2018 Abstract SFL CONVERSION [address] [place] [place] [address] , Generic Conversion, Social History Tobacco Use [...] Rule Out 04/08/2022 04/08/2022 04/08/2022 8:52 PM PRODUCE INSPECTOR Parainfluenza 04/08/2022 04/08/2022 04/18/2022 12: 33 AM PRODUCE INSPECTOR documented as of this encounter Care Teams Fire Protection Equipment Technician Relationship Specialty Start Date End Date Danielito Miles MD [address] [place] [phone] PCP - General FAMILY PRACTICE 11/17/17 09/25/23 Theo Alford MD [address] [place] [address] PCP - General INTERNAL MEDICINE 09/26/23 Hermilo Renee MD [address] [place] [phone] INTERNAL MEDICINE 05/26/21 Mikel Portillo MD [address] [place] [phone] Consulting Physician CARDIOVASCULAR DISEASE 12/01/21 Jose Kumar MD [address] [place] [address] Consulting Physician PULMONARY DISEASE 12/03/21 Amber Ramon APRN, FIRE HAZARD INSPECTOR-C [address] [place] [phone] NURSE PRACTITIONER 12/03/21 documented as of this encounter
--- OUTSIDE RECORDS SUMMARY | 2024-12-25 17:08 | XMS_ITS | Encounter Summary ---
Author Organization [facility] Address Critical access hospital[address] [place] [address] Care Team Providers Care Personal Care Worker Name Role Phone Danielito Miles MD Primary Care Provider Hermilo Renee MD Unavailable Mikel Portillo MD Unavailable Jose Kumar MD Unavailable [phone] Amber Ramon APRN, NETWORK OPERATIONS TECHNICIAN-C Unavailable Theo Alford MD Primary Care Provider [phone] Reason for Visit * Reason Onset Date Comments Results 01/07/2021 Encounter Details Date Type Department Care Team (Late st Contact Info) Description 01/07/2021 Telephone [facility] [address] [place] [address] Jeff Oliveros MD [address] [place] [address] Results Social History Tobacco Use [...] Rule Out 04/08/2022 04/08/2022 04/08/2022 8:52 PM PROCESS DESIGNER Parainfluenza 04/08/2022 04/08/2022 04/18/2022 12: 33 AM PROCESS DESIGNER documented as of this encounter Care Teams Personal Care Worker Relationship Specialty Start Date End Date Danielito Miles MD [address] [place] [phone] PCP - General FAMILY PRACTICE 11/17/17 09/25/23 Theo Alford MD [address] [place] [address] PCP - General INTERNAL MEDICINE 09/26/23 Hermilo Renee MD [address] [place] [phone] INTERNAL MEDICINE 05/26/21 Mikel Portillo MD [address] [place] [address] Consulting Physician CARDIOVASCULAR DISEASE 12/01/21 Jose Kumar MD [address] [place] [address] Consulting Physician PULMONARY DISEASE 12/03/21 Amber Ramon, PACKAGING ASSEMBLER, NETWORK OPERATIONS TECHNICIAN-C [address] [facility] [address] [place] [address] NURSE PRACTITIONER 12/03/21 documented as of this encounter
--- OUTSIDE RECORDS SUMMARY | 2024-12-25 17:08 | XMS_ITS | Encounter Summary ---
Author Organization [facility] Address [facility] [place] [address] Care Team Providers Care Phosphorus Processing Supervisor Name Role Phone Danielito Miles MD Primary Care Provider [phone] Hermilo Renee MD Unavailable Mikel Portillo MD Unavailable [phone] Jose Kumar MD Unavailable [phone] Amber Ramon APRN, UNIT MANAGER-C Unavailable Theo Alford MD Primary Care Provider [phone] Encounter Details Date Type Department Care Team (Late st Contact Info) Description 12/04/2021 MyChart Message Enc [facility] [address] [place] [address] Jose Kumar MD [address] [place] [address] bicycle rides Social History Tobacco [...] Please add patient to my schedule in [place] for December 09 and give him the date and time. * Jolie Hernandez MA - 12/06/2021 10:10 AM CDT See other FastCall[employer] message as well documented in this encounter Plan of Treatment Not on file documented as of this encounter Visit Diagnoses Not on filedocumented in this encounter Additional Health Concerns Infection Onset Date Last Indicated Resolved Time COVID-19 Rule Out 04/08/2022 04/08/2022 04/08/2022 8:52 PM CYTOPATHOLOGIST Parainfluenza 04/08/2022 04/08/2022 04/18/2022 12: 33 AM CYTOPATHOLOGIST Assessment Noted Time PHQ-9 Depression Total Score: 0 01/14/20 21 10:06 AM CDT documented as of this encounter Care Teams Phosphorus Processing Supervisor Relationship Specialty Start Date End Date Danielito Miles MD [address] [place] [phone] PCP - General FAMILY PRACTICE 11/17/17 09/25/23 Theo Alford MD [address] [place] [address] PCP - General INTERNAL MEDICINE 09/26/23 Hermilo Renee MD [address] [place] [phone] INTERNAL MEDICINE 05/26/21 Mikel Portillo MD [address] [place] [address] Consulting Physician CARDIOVASCULAR DISEASE 12/01/21 Jose Kumar MD [address] [place] [address] Consulting Physician PULMONARY DISEASE 12/03/21 Amber Ramon APRN, UNIT MANAGER-C [address] [facility] [address] [place] [phone] NURSE PRACTITIONER 12/03/21 documented as of this encounter
--- OUTSIDE RECORDS SUMMARY | 2024-12-25 17:08 | XMS_ITS | Encounter Summary ---
Author Organization [facility] Address [facility]6 [place] [address] Care Team Providers Care Supervisor Telephone Clerks Name Role Phone Danielito Miles MD Primary Care Provider Hermilo Renee MD Unavailable Mikel Portillo MD Unavailable [phone] Jose Kumar MD Unavailable [phone] Amber Ramon APRN, FEED GRINDER-C Unavailable Theo Alford MD Primary Care Provider [phone] Encounter Details Date Type Department Care Team (Late st Contact Info) Description 12/13/2021 MyChart Message Enc [facility] [address] [place] [address] Jose Kumar MD [address] [place] [address] chest x-ray Social History Tobacco [...] Rule Out 04/08/2022 04/08/2022 04/08/2022 8:52 PM AUTO TUNE UP MECHANIC Parainfluenza 04/08/2022 04/08/2022 04/18/2022 12: 33 AM AUTO TUNE UP MECHANIC Assessment Noted Time PHQ-9 Depression Total Score: 0 01/14/20 21 10:06 AM CDT documented as of this encounter Care Teams Supervisor Telephone Clerks Relationship Specialty Start Date End Date Danielito Miles MD [address] [place] [phone] PCP - General FAMILY PRACTICE 11/17/17 09/25/23 Theo Alford MD [address] [place] [address] PCP - General INTERNAL MEDICINE 09/26/23 Hermilo Renee MD [address] [place] [phone] INTERNAL MEDICINE 05/26/21 Mikel Portillo MD [address] [place] [address] Consulting Physician CARDIOVASCULAR DISEASE 12/01/21 Jose Kumar MD [address] [place] [address] Consulting Physician PULMONARY DISEASE 12/03/21 Amber Ramon, CELESTINA, FEED GRINDER-C [address] [phone] NURSE PRACTITIONER 12/03/21 documented as of this encounter
--- OUTSIDE RECORDS SUMMARY | 2024-12-25 17:08 | XMS_ITS | Clinical Summary ---
Author Organization [facility] Address [facility]6 [place] [address] Care Team Providers Care Transport Driver Name Role Phone Hermilo Renee MD Unavailable Mikel Portillo MD Unavailable [phone] Jose Kumar MD Unavailable [phone] Amber Ramon APRN, NP-Cyndee Unavailable [phone] Theo Alford MD Primary Care Provider [phone] Allergies Active Allergy Reactions Criticality Noted Date [...] Comments Blood Pressure 119/55 05/04/2022 2:30 AM VENDETTE Pulse 88 05/04/2022 2:30 AM VENDETTE Temperature 37.1 C (98.7 F) 05/03/2022 11:59 AM VENDETTE Respiratory Rate 21 05/04/2022 2:30 AM VENDETTE Oxygen Saturation 99% 05/04/2022 2:30 AM VENDETTE Inhaled Oxygen Concentration - - Weight 81.2 kg (179 lb) 05/03/2022 11:59 AM VENDETTE Height 167.6 cm (5' 6) 05/03/2022 11:59 AM VENDETTE Body Mass Index 28.89 05/03/2022 11:59 AM VENDETTE Plan of Treatment Health Maintenance Due Date [...] 5:07 PM 02/09/2022 6:15 PM Care Teams Transport Driver Relationship Specialty Start Date End Date Theo Alford MD [address] [place] [address] PCP - General INTERNAL MEDICINE 09/26/23 Hermilo Renee MD INTERNAL MEDICINE 05/26/21 Mikel Portillo MD [address] [place] [address] Consulting Physician CARDIOVASCULAR DISEASE 12/01/21 Jose Kumar MD [address] [place] [address] Consulting Physician PULMONARY DISEASE 12/03/21 Amber Ramon APRN, DIRECTOR RELIGIOUS EDUCATION-C [address] [facility] [address] [place] [phone] NURSE PRACTITIONER 12/03/21
--- OUTSIDE RECORDS SUMMARY | 2024-12-25 17:08 | XMS_ITS | Encounter Summary ---
Author Organization [facility] Address Critical access hospital6 [place] [address] Care Team Providers Care Napper Fixer Name Role Phone Danielito Miles MD Primary Care Provider [phone] Hermilo Renee MD Unavailable Mikel Portillo MD Unavailable Jose Kumar MD Unavailable [phone] Amber Ramon APRN, PHYSICAL OPTICS TEACHER-C Unavailable Theo Alford MD Primary Care Provider [phone] Encounter Details Date Type Department Care Team (Late st Contact Info) Description 01/05/2021 Mobile [employer] Message Enc [facility] [address] [place] [address] Amber Ramon APRN, PHYSICAL OPTICS TEACHER-C [address] [facility] [address] [place] [address] RE: Other Social History Tobacco [...] Out 04/08/2022 04/08/2022 04/08/2022 8:52 PM AUTO SERVICE MECHANIC Parainfluenza 04/08/2022 04/08/2022 04/18/2022 12: 33 AM AUTO SERVICE MECHANIC documented as of this encounter Care Teams Napper Fixer Relationship Specialty Start Date End Date Danielito Miles MD [address] [place] [phone] PCP - General FAMILY PRACTICE 11/17/17 09/25/23 Theo Alford MD [address] [place] [phone] PCP - General INTERNAL MEDICINE 09/26/23 Hermilo Renee MD [address] [place] [phone] INTERNAL MEDICINE 05/26/21 Mikel Portillo MD [address] [place] [address] Consulting Physician CARDIOVASCULAR DISEASE 12/01/21 Jose Kumar MD [address] [place] [address] Consulting Physician PULMONARY DISEASE 12/03/21 Amber Ramon, ELECTRICAL LOGGER, PHYSICAL OPTICS TEACHER-C [address] [phone] NURSE PRACTITIONER 12/03/21 documented as of this encounter
--- OUTSIDE RECORDS SUMMARY | 2024-12-25 17:08 | XMS_ITS | Clinical Summary ---
Author Organization [facility] Address [address] [place] [phone] Phone Care Team Providers Care Display Decorator Name Role Phone Danielito Miles MD Primary [...] for Shortness of Breath. Active cpap medical billing assistant Low pressure 5. High pressure 20. [...] hypertension 05/04/2022 Coronary artery disease invo lving [place] coronary artery of [place] heart without angina pectoris, S/P CABG on [...] on file Legal Sex Male 7:19 PM CRIMINAL ATTORNEY Gender Identity Not on file Sexual Orientation Not on file Last Filed Vital Signs Vital Sign Reading Time Taken Comments Blood Pressure 116/58 05/19/2022 11:47 AM CRIMINAL ATTORNEY Pulse 96 05/07/2022 10:27 AM CRIMINAL ATTORNEY Temperature 36.4 C (97.6 F) 05/19/2022 11:47 AM CRIMINAL ATTORNEY Respiratory Rate 18 05/07/2022 10:27 AM CRIMINAL ATTORNEY Oxygen Saturation 95% 05/07/2022 10:27 AM CRIMINAL ATTORNEY Inhaled Oxygen Concentration - - Weight 78.5 kg (173 lb) 05/19/2022 11:47 AM CRIMINAL ATTORNEY Height 167.6 cm (5' 6) 05/19/2022 11:47 AM CRIMINAL ATTORNEY Body Mass Index 27.92 05/19/2022 11:47 AM CRIMINAL ATTORNEY Plan of Treatment Health Maintenance Due Date [...] 12/01/2020, 05/02/2020 Medical Devices Implanted Type Area Euclid Operator Device Identifier Shelf Expiration Date Model / Serial / Lot Clip Ti Med/Lg 3200 - [facility] [place] [id number] Implanted:Qty: 1 on 05/05/2022 by Wilber Lockett MD at [facility] N/A: Abdomen TELEFLEX- WECK CLOSURE SYS 12/23/2026 [id number] / / [id number] Clip Ti Med/Lg 3200 - [facility] - [id number] Implanted:Qty: 1 on 05/05/2022 by Wilber Lockett MD at [facility] N/A: Abdomen TELEFLEX- WECK CLOSURE SYS 11/29/2026 [id number] / / [id number] Hemostatic Surg Powder 3013sp - [id number] Implanted:Qty: 1 on 05/05/2022 by Wilber Lockett MD at [facility] Hemostatic N/A: Abdomen J[employer]- [employer] 06/22/2023 [id number] / / [id number] Insurance AETNA O [facility] RX AETNA Medicare Part D Advance Directives For more information, please contact: [phone] * Full Code (Latest Code Status on File) Date Activated Date Inactivated Comments 05/06/2022 7:51 PM 05/07/2022 7:28 PM * Full Code Date Activated Date Inactivated Comments 05/04/2022 8:44 AM 05/06/2022 7:50 PM * Default Full Code - Needs Discussion Date Activated Date Inactivated Comments 05/04/2022 4:41 AM 05/04/2022 8:43 AM Care Teams Display Decorator Relationship Specialty Start Date End Date Danielito Miles MD [address] [place] [address] PCP - General Family Practice 05/04/22
--- OUTSIDE RECORDS SUMMARY | 2024-12-25 17:08 | XMS_ITS | Encounter Summary ---
Author Organization [facility] Address [facility]6 [place] [address] Care Team Providers Care Technical Aide Name Role Phone Danielito Miles MD Primary Care Provider Hermilo Renee MD Unavailable Mikel Portillo MD Unavailable [phone] Jose Kumar MD Unavailable [phone] Amber Ramon APRN, HANDLE LATHE OPERATOR-C Unavailable Theo Alford MD Primary Care Provider [phone] Encounter Details Date Type Department Care Team (Late st Contact Info) Description 12/04/2021 MyChart Message Enc [facility] [address] [place] [address] Jose Kumar MD [address] [place] [address] bicycle rides continued Social History [...] Rule Out 04/08/2022 04/08/2022 04/08/2022 8:52 PM MUSICAL INSTRUMENT MECHANIC Parainfluenza 04/08/2022 04/08/2022 04/18/2022 12: 33 AM MUSICAL INSTRUMENT MECHANIC Assessment Noted Time PHQ-9 Depression Total Score: 0 01/14/20 21 10:06 AM CDT documented as of this encounter Care Teams Technical Aide Relationship Specialty Start Date End Date Danielito Miles MD [address] [place] [phone] PCP - General FAMILY PRACTICE 11/17/17 09/25/23 Theo Alford MD [address] [place] [address] PCP - General INTERNAL MEDICINE 09/26/23 Hermilo Renee MD [address] [place] [phone] INTERNAL MEDICINE 05/26/21 Mikel Portillo MD [address] [place] [address] Consulting Physician CARDIOVASCULAR DISEASE 12/01/21 Jose Kumar MD [address] [place] [address] Consulting Physician PULMONARY DISEASE 12/03/21 Amber Ramon, CELESTINA, HANDLE LATHE OPERATOR-C [address] [phone] NURSE PRACTITIONER 12/03/21 documented as of this encounter
--- OUTSIDE RECORDS SUMMARY | 2024-12-25 17:08 | XMS_ITS | Encounter Summary ---
Author Organization [facility] Address [facility]6 [place] [address] Care Team Providers Care Purchasing Coordinator Name Role Phone Danielito Miles MD Primary Care Provider Hermilo Renee MD Unavailable Mikel Portillo MD Unavailable [phone] Jose Kumar MD Unavailable [phone] Amber Ramon APRN, RESTAURANT BARTENDER-C Unavailable Theo Alford MD Primary Care Provider [phone] Encounter Details Date Type Department Care Team (Late st Contact Info) Description 04/13/2021 MyChart Message Enc [facility] [address] [place] [address] Jose Kumar MD [address] [place] [address] CPAP has arrived Social History [...] as of this encounter Progress Notes * Joes Kumar MD - 04/13/2021 5:56 PM CST I have responded to patient through my chart IC HEALTH POLICY ANALYST * Jolie Hernandez MA - 04/13/2021 1:12 PM CST See attachment IC HEALTH POLICY ANALYST * Jose Kumar MD - 04/13/2021 11:39 AM CST I have responded to patient through my chart IC HEALTH POLICY ANALYST * Jolie Hernandez MA - 04/13/2021 11:25 AM CST Please respond to pt IC HEALTH POLICY ANALYST documented in this encounter Plan of Treatment Not on file documented as of this encounter Visit Diagnoses Not on filedocumented in this encounter Additional Health Concerns Infection Onset Date Last Indicated Resolved Time COVID-19 Rule Out 04/08/2022 04/08/2022 04/08/2022 8:52 PM PUBLIC HEALTH POLICY ANALYST Parainfluenza 04/08/2022 04/08/2022 04/18/2022 12: 33 AM PUBLIC HEALTH POLICY ANALYST Assessment Noted Time PHQ-9 Depression Total Score: 0 01/14/20 10:06 AM CDT documented as of this encounter Care Teams Purchasing Coordinator Relationship Specialty Start Date End Date Danielito Miles MD [address] [place] [phone] PCP - General FAMILY PRACTICE 11/17/17 09/25/23 Theo Alford MD [address] [place] [address] PCP - General INTERNAL MEDICINE 09/26/23 Hermilo Renee MD [address] [place] [phone] INTERNAL MEDICINE 05/26/21 Mikel Portillo MD [address] [place] [address] Consulting Physician CARDIOVASCULAR DISEASE 12/01/21 Jose Kumar MD [address] [place] [address] Consulting Physician PULMONARY DISEASE 12/03/21 Amber Ramon APRN, RESTAURANT BARTENDER-C [address] [facility] [address] [place] [address] NURSE PRACTITIONER 12/03/21 documented as of this encounter
--- OUTSIDE RECORDS SUMMARY | 2024-12-25 17:08 | XMS_ITS | Encounter Summary ---
Author Organization [facility] Address [address] [place] [address] Care Team Providers Care Energy Crop Farmer Name Role Phone Danielito Miles MD Primary Care Provider Hermilo Renee MD Unavailable Mikel Portillo MD Unavailable [phone] Jose Kumar MD Unavailable [phone] Amber Ramon APRN, DICE TABLE OPERATOR-C Unavailable Theo Alford MD Primary Care Provider [phone] Encounter Details Date Type Department Care Team (Late st Contact Info) Description 09/29/2018 Abstract SFL CONVERSION [address] [place] [address] , Generic Conversion, Social History Tobacco Use [...] Rule Out 04/08/2022 04/08/2022 04/08/2022 8:52 PM COSTUME DRAPER Parainfluenza 04/08/2022 04/08/2022 04/18/2022 12: 33 AM COSTUME DRAPER documented as of this encounter Care Teams Energy Crop Farmer Relationship Specialty Start Date End Date Danielito Miles MD [address] [place] [phone] PCP - General FAMILY PRACTICE 11/17/17 09/25/23 Theo Alford MD [address] [place] [address] PCP - General INTERNAL MEDICINE 09/26/23 Hermilo Renee MD [address] [place] [phone] INTERNAL MEDICINE 05/26/21 Mikel Portillo MD [address] [place] [phone] Consulting Physician CARDIOVASCULAR DISEASE 12/01/21 Jose Kumar MD [address] [place] [address] Consulting Physician PULMONARY DISEASE 12/03/21 Amber Ramon APRN, DICE TABLE OPERATOR-C [address] [place] [phone] NURSE PRACTITIONER 12/03/21 documented as of this encounter
--- OUTSIDE RECORDS SUMMARY | 2024-12-25 17:08 | XMS_ITS | Encounter Summary ---
Author Organization [facility] Address [facility]6 [place] [address] Care Team Providers Care Research Management Associate Name Role Phone Danielito Miles MD Primary Care Provider [phone] Hermilo Renee MD Unavailable Mikel Portillo MD Unavailable [phone] Jose Kumar MD Unavailable [phone] Amber Ramon APRN, SHIFT LAB TECHNICIAN-C Unavailable Theo lAford MD Primary Care Provider [phone] Encounter Details Date Type Department Care Team (Late st Contact Info) Description 08/10/2021 MyChart Message Enc [facility] [address] [place] [address] Jose Kumar MD [address] [place] [address] July 23 CPAP results Social [...] Rule Out 04/08/2022 04/08/2022 04/08/2022 8:52 PM FILLING STATION EQUIPMENT MECHANIC Parainfluenza 04/08/2022 04/08/2022 04/18/2022 12: 33 AM FILLING STATION EQUIPMENT MECHANIC Assessment Noted Time PHQ-9 Depression Total Score: 0 01/14/20 21 10:06 AM CDT documented as of this encounter Care Teams Research Management Associate Relationship Specialty Start Date End Date Danielito Miles MD [address] [place] [phone] PCP - General FAMILY PRACTICE 11/17/17 09/25/23 Theo Alford MD [address] [place] [address] PCP - General INTERNAL MEDICINE 09/26/23 Hermilo Renee MD [address] [place] [phone] INTERNAL MEDICINE 05/26/21 Mikel Portillo MD [address] [place] [address] Consulting Physician CARDIOVASCULAR DISEASE 12/01/21 Jose Kumar MD [address] [place] [address] Consulting Physician PULMONARY DISEASE 12/03/21 Amber Ramon, CELESTINA, SHIFT LAB TECHNICIAN-C [address] [phone] NURSE PRACTITIONER 12/03/21 documented as of this encounter
--- OUTSIDE RECORDS SUMMARY | 2024-12-25 17:08 | XMS_ITS | Encounter Summary ---
Author Organization [facility] Address [facility]6 [place] [address] Care Team Providers Care Glove Operator Name Role Phone Danielito Miles MD Primary Care Provider [phone] Hermilo Renee MD Unavailable Mikel Portillo MD Unavailable [phone] Jose Kumar MD Unavailable [phone] Amber Ramon APRN, REFRIGERATION ENGINEER-C Unavailable Theo Alford MD Primary Care Provider [phone] Encounter Details Date Type Department Care Team (Late st Contact Info) Description 06/03/2021 MyChart Message Enc [facility] [address] [place] [address] Jose Kumar MD [address] [place] [address] CPAP machine results Social History [...] Rule Out 04/08/2022 04/08/2022 04/08/2022 8:52 PM SCHEDULER CONVEYOR Parainfluenza 04/08/2022 04/08/2022 04/18/2022 12: 33 AM SCHEDULER CONVEYOR Assessment Noted Time PHQ-9 Depression Total Score: 0 01/14/20 21 10:06 AM CDT documented as of this encounter Care Teams Glove Operator Relationship Specialty Start Date End Date Danielito Miles MD [address] [place] [phone] PCP - General FAMILY PRACTICE 11/17/17 09/25/23 Theo Alford MD [address] [place] [address] PCP - General INTERNAL MEDICINE 09/26/23 Hermilo Renee MD [address] [place] [phone] INTERNAL MEDICINE 05/26/21 Mikel Portillo MD [address] [place] [phone] Consulting Physician CARDIOVASCULAR DISEASE 12/01/21 Jose Kumar MD [address] [place] [address] Consulting Physician PULMONARY DISEASE 12/03/21 Amber Ramon, CELESTINA, REFRIGERATION ENGINEER-C [address] [phone] NURSE PRACTITIONER 12/03/21 documented as of this encounter
--- OUTSIDE RECORDS SUMMARY | 2024-12-25 17:08 | XMS_ITS | Encounter Summary ---
Author Organization [place] Address [facility] [place] [address] Care Team Providers Care Senior Java J2Ee Developer Name Role Phone Danielito Miles MD Primary Care Provider [phone] Hermilo Renee MD Unavailable Mikel Portillo MD Unavailable [phone] Jose Kumar MD Unavailable [phone] Amber Ramon APRN, DRIP BOX TENDER-C Unavailable Theo Alford MD Primary Care Provider [phone] Encounter Details Date Type Department Care Team (Late st Contact Info) Description 12/15/2021 MyChart Message Enc [facility] [address] [place] [address] Jose Kumar MD [address] [place] [address] Test results from molder apprentice Social History Tobacco Use Types Packs/Day Years [...] Out 04/08/2022 04/08/2022 04/08/2022 8:52 PM REPAIR DEPARTMENT MANAGER Parainfluenza 04/08/2022 04/08/2022 04/18/2022 12: 33 AM REPAIR DEPARTMENT MANAGER Assessment Noted Time PHQ-9 Depression Total Score: 0 01/14/20 21 10:06 AM CDT documented as of this encounter Care Teams Senior Java J2Ee Developer Relationship Specialty Start Date End Date Danielito Miles MD [address] [place] [phone] PCP - General FAMILY PRACTICE 11/17/17 09/25/23 Theo Alford MD [address] [place] [address] PCP - General INTERNAL MEDICINE 09/26/23 Hermilo Renee MD [address] [place] [phone] INTERNAL MEDICINE 05/26/21 Mikel Portillo MD [address] [place] [phone] Consulting Physician CARDIOVASCULAR DISEASE 12/01/21 Jose Kumar MD [address] [place] [address] Consulting Physician PULMONARY DISEASE 12/03/21 Amber Ramon APRN, DRIP BOX TENDER-C [address] [place] [address] [address] [place] [address] NURSE PRACTITIONER 12/03/21 documented as of this encounter
--- OUTSIDE RECORDS SUMMARY | 2024-12-25 17:08 | XMS_ITS | Clinical Summary ---
Author Organization [facility] Address [address] [place] [address] Care Team Providers Care Director Of Career Resources Name Role Phone Danielito Miles MD Primary Care Provider [phone] Aureliano Sweeney MD Unavailable [phone] Allergies Active Allergy Reactions Criticality Noted [...] mcg tablet Take 100 mcg by mouth technical support intern before breakfast Active metFORMIN (GLUCOPHAGE) 500 mg [...] Take 1,000 mg by mouth daily Active zzvw5-hcz-wwy-fis h oil-L.casei 120 mg-400 mg -4 billion cell capsule Take 460 mg by mouth daily after lunch Active Active Problems Problem Noted Date Diagnosed Date Lower leg mass, right 07/08/2021 Overview (07/08/2021): Added automatically from request for surgery [id number] Assessment & Plan (07/29/2021 11:24 AM CDT): [...] therapy. Assessment & Plan (06/25/2021 8:16 AM PRESSROOM WORKER): Impression: Chronic diabetes mellitus controlled with insulin. Patient reports his last A1c was 7.3. Plan: Medications reviewed, no changes made. Continue glucose monitoring and management as per primary care. Pain and swelling of right lower extremity 06/25 Assessment & Plan (06/25/2021 8:38 AM PRESSROOM WORKER): Impression: Patient complains of swelling to his [...] management. Assessment & Plan (06/25/2021 8:17 AM PRESSROOM WORKER): Impression: Chronic stable hypertension, controlled medications. Blood [...] degenerative problems causes SOB, seeing specialist at [facility]. soon Sleep apnea CPAP OSAGE (hard of hearing) mild Arthritis Hypothyroid on [...] on file Legal Sex Male 7:24 PM PRESSROOM WORKER Gender Identity Not on file Sexual Orientation [...] MD LAB BLOOD ORDERABLES Final Result [place] [address] [facility] Department [place] [address] from Last 3 Months or Most Recently Relevant to Health Maintenance Insurance MEDICARE HMO/PPO MEDICARE HMO/PPO MEDICARE HMO/PPO Care Teams Director Of Career Resources Relationship Specialty Start Date End Date Danielito Miles MD PCP - General Family Medicine 05/21/21 Aureliano Sweeney MD [address] [facility] [address] [place] [address] Surgeon Surgery 07/15/21
--- OUTSIDE RECORDS SUMMARY | 2024-12-25 17:08 | XMS_ITS | Encounter Summary ---
Author Organization [facility] Address [facility] [place] [address] Care Team Providers Care Paperhanger Pipe Name Role Phone Danielito Miles MD Primary Care Provider Hermilo Renee MD Unavailable Mikel Portillo MD Unavailable [phone] Jose Kumar MD Unavailable [phone] Amber Ramon APRN FITNESS STUDIES TEACHER-C Unavailable Theo Alford MD Primary Care Provider [phone] Encounter Details Date Type Department Care Team (Late st Contact Info) Description 02/11/2022 [facility] Message Enc [facility] [facility] ield [address] [place], [place] [address] Lucina Barba, COLEEN [address] [facility] 2nd [place] [address] [place] [address] CT results Social History Tobacco [...] Rule Out 04/08/2022 04/08/2022 04/08/2022 8:52 PM RN PERINATAL Parainfluenza 04/08/2022 04/08/2022 04/18/2022 12: 33 AM RN PERINATAL Assessment Noted Time PHQ-9 Depression Total Score: 0 01/14/20 21 10:06 AM CDT documented as of this encounter Care Teams Paperhanger Pipe Relationship Specialty Start Date End Date Danielito Miles MD [address] [place] [phone] PCP - General FAMILY PRACTICE 11/17/17 09/25/23 Theo Alford MD [address] [place] [address] PCP - General INTERNAL MEDICINE 09/26/23 Hermilo Renee MD [address] [place] [phone] INTERNAL MEDICINE 05/26/21 Mikel Portillo MD [address] [place] [address] Consulting Physician CARDIOVASCULAR DISEASE 12/01/21 Jose Kumar MD [address] [place] [address] Consulting Physician PULMONARY DISEASE 12/03/21 Amber Ramon APRN, FITNESS STUDIES TEACHER-C [address] [facility] [address] [place] [phone] NURSE PRACTITIONER 12/03/21 documented as of this encounter
--- OUTSIDE RECORDS SUMMARY | 2024-12-25 17:08 | XMS_ITS | Encounter Summary ---
Author Organization [facility] Address [facility] [place] [address] Care Team Providers Care Slide Developer Name Role Phone Danielito Miles MD Primary Care Provider Hermilo Renee MD Unavailable Mikel Portillo MD Unavailable [phone] Jose Kumar MD Unavailable [phone] Amber Ramon APRN, FLATWORK FINISHER HAND-C Unavailable Theo Alford MD Primary Care Provider [phone] Encounter Details Date Type Department Care Team (Late st Contact Info) Description 12/13/2021 MyChart Message Enc [facility] Medical [facility] Pul[facility] [address] [place] [address] Jose Kumar MD [address] [place] [address] vitamin D-3 Social History Tobacco [...] Rule Out 04/08/2022 04/08/2022 04/08/2022 8:52 PM DEBURRER Parainfluenza 04/08/2022 04/08/2022 04/18/2022 12: 33 AM DEBURRER Assessment Noted Time PHQ-9 Depression Total Score: 0 01/14/20 21 10:06 AM CDT documented as of this encounter Care Teams Slide Developer Relationship Specialty Start Date End Date Danielito Miles MD [address] [place] [phone] PCP - General FAMILY PRACTICE 11/17/17 09/25/23 Theo Alford MD [address] [place] [address] PCP - General INTERNAL MEDICINE 09/26/23 Hermilo Renee MD [address] [place] [phone] INTERNAL MEDICINE 05/26/21 Mikel Portillo MD [address] [place] [address] Consulting Physician CARDIOVASCULAR DISEASE 12/01/21 Jose Kumar MD [address] [place] [address] Consulting Physician PULMONARY DISEASE 12/03/21 Amber Ramon, CELESTINA, FLATWORK FINISHER HAND-C [address] [phone] NURSE PRACTITIONER 12/03/21 documented as of this encounter
--- OUTSIDE RECORDS SUMMARY | 2024-12-25 17:08 | XMS_ITS | Encounter Summary ---
Author Organization [facility] Address [facility] [place] [address] Care Team Providers Care Water Treatment Technician Name Role Phone Danielito Miles MD Primary Care Provider Hermilo Renee MD Unavailable Mikel Portillo MD Unavailable [phone] Jose Kumar MD Unavailable [phone] Amber Ramon APRN, DIGITAL COORDINATOR-C Unavailable Theo Alford MD Primary Care Provider [phone] Encounter Details Date Type Department Care Team (Late st Contact Info) Description 04/07/2022 Hospital Follow-up Call [facility] Cardiovascular Care Unit [address] [place] [address] Shannon Asher, RN Social History [...] Coronavirus/COVID-19? No / Unsure 04/08/2022 11:57 AM SKULL SPLITTER documented as of this encounter Functional Status [...] Assessment Author Status No 03/29/2022 6:10 AM SKULL SPLITTER Activ e * RETIRED Are you blind or do you have serious difficulty seeing, even when wearing glasses? Answer Date of Assessment Author Status No 03/29/2022 6:10 AM SKULL SPLITTER Activ e * Do you have serious [...] 6:26 PM Indira Downing RN Active * [place] Suicide Severity Rating Scale (Screener/Recent Self-Report) Question Answer Date of Assessment Author Status 1. Wish to be (Past 1 Month) No 04/08/2022 6:26 PM SKULL SPLITTER Indira Bonilla RN Activ e 2. Non-Specific Active Suicidal Thoughts (Past 1 Month) No 04/08/2022 6:26 PM Indria Downing RN Activ e 6. Suicidal Behavior [...] Date Author Status No 03/29/2022 6:10 AM SKULL SPLITTER Maritza Manzo RN Active documented in this [...] Rule Out 04/08/2022 04/08/2022 04/08/2022 8:52 PM SKULL SPLITTER Parainfluenza 04/08/2022 04/08/2022 04/18/2022 12: 33 AM SKULL SPLITTER Assessment Noted Time PHQ-9 Depression Total Score: 0 01/14/20 21 10:06 AM CDT documented as of this encounter Care Teams Water Treatment Technician Relationship Specialty Start Date End Date Danielito Miles MD [address] [place] [phone] PCP - General FAMILY PRACTICE 11/17/17 09/25/23 Theo Alford MD [address] [place] [address] PCP - General INTERNAL MEDICINE 09/26/23 Hermilo Renee MD [address] [place] [phone] INTERNAL MEDICINE 05/26/21 Mikel Portillo MD [address] [place] [address] Consulting Physician CARDIOVASCULAR DISEASE 12/01/21 Jose Kumar MD [address] [place] [address] Consulting Physician PULMONARY DISEASE 12/03/21 Amber Ramon APRN, DIGITAL COORDINATOR-C [address] [facility] [address] [place] [phone] NURSE PRACTITIONER 12/03/21 documented as of this encounter
--- OUTSIDE RECORDS SUMMARY | 2024-12-25 17:08 | XMS_ITS | Encounter Summary ---
Author Organization [facility] Address [facility] [place] [address] Care Team Providers Care Autobody Technician Name Role Phone Danielito Miles MD Primary Care Provider Hermilo Renee MD Unavailable Mikel Portillo MD Unavailable [phone] Jose Kumar MD Unavailable [phone] Amber Ramon APRN, FIRE SUPPORT MAN-C Unavailable Theo Alford MD Primary Care Provider [phone] Encounter Details Date Type Department Care Team (Late st Contact Info) Description 04/13/2021 MyChart Message Enc [facility] Medical Group Pulmonology Specialty Clinic [address] [place] [address] Jose Kumar MD [address] [place] [address] MRI Social History Tobacco Use [...] have responded to patient through my chart EDITATION MANAGER * Jolie Hernandez MA - 04/13/2021 11:25 AM CST Please respond to pt EDITATION MANAGER documented in this encounter Plan of Treatment Not on file documented as of this encounter Visit Diagnoses Not on filedocumented in this encounter Additional Health Concerns Infection Onset Date Last Indicated Resolved Time COVID-19 Rule Out 04/08/2022 04/08/2022 04/08/2022 8:52 PM ACCREDITATION MANAGER Parainfluenza 04/08/2022 04/08/2022 04/18/2022 12: 33 AM ACCREDITATION MANAGER Assessment Noted Time PHQ-9 Depression Total Score: 0 01/14/20 21 10:06 AM CDT documented as of this encounter Care Teams Autobody Technician Relationship Specialty Start Date End Date Danielito Miles MD [address] [place] [phone] PCP - General FAMILY PRACTICE 11/17/17 09/25/23 Theo Alford MD [address] [place] [address] PCP - General INTERNAL MEDICINE 09/26/23 Hermilo Renee MD [address] [place] [phone] INTERNAL MEDICINE 05/26/21 Mikel Portillo MD [address] [place] [address] Consulting Physician CARDIOVASCULAR DISEASE 12/01/21 Jose Kumar MD [address] [place] [address] Consulting Physician PULMONARY DISEASE 12/03/21 Amber Ramon, PRODUCTION MACHINIST, FIRE SUPPORT MAN-C [address] [facility] [address] [place] [phone] NURSE PRACTITIONER 12/03/21 documented as of this encounter
--- OUTSIDE RECORDS SUMMARY | 2024-12-25 17:08 | XMS_ITS | Encounter Summary ---
Author Organization [facility] Address [facility]6 [place] [address] Care Team Providers Care Supervisor Throwing Department Name Role Phone Danielito Miles MD Primary Care Provider Hermilo Renee MD Unavailable Mikel Portillo MD Unavailable [phone] Jose Kumar MD Unavailable [phone] Amber Ramon APRN, SCAFFOLDING HELPER-C Unavailable Theo Alford MD Primary Care Provider [phone] Encounter Details Date Type Department Care Team (Latest Contact Info) Description 01/05/2022 EduSourced Message [facility] [place] [address] Jeff Oliveros MD [address] [place] [address] appointment Social History Tobacco Use [...] Rule Out 04/08/2022 04/08/2022 04/08/2022 8:52 PM PRIMER INSPECTOR Parainfluenza 04/08/2022 04/08/2022 04/18/2022 12: 33 AM PRIMER INSPECTOR Assessment Noted Time PHQ-9 Depression Total Score: 0 01/14/20 21 10:06 AM CDT documented as of this encounter Care Teams Supervisor Throwing Department Relationship Specialty Start Date End Date Danielito Miles MD [address] [place] [phone] PCP - General FAMILY PRACTICE 11/17/17 09/25/23 Theo Alford MD [address] [place] [address] PCP - General INTERNAL MEDICINE 09/26/23 Hermilo Renee MD [address] [place] [phone] INTERNAL MEDICINE 05/26/21 Mikel Portillo MD [address] [place] [address] Consulting Physician CARDIOVASCULAR DISEASE 12/01/21 Jose Kumar MD [address] [place] [address] Consulting Physician PULMONARY DISEASE 12/03/21 Amber Ramon, CELESTINA, SCAFFOLDING HELPER-C [address] [phone] NURSE PRACTITIONER 12/03/21 documented as of this encounter
== END 2024-12-25 16:15 | disposition home or self-care (01) ==
PROVIDERS: Emergency Provider Internal Medicine Critical Care Medicine; PCP Internal Medicine
DX: E87.1 Hypo-osmolality and hyponatremia (principal); D70.9 Neutropenia, unspecified; E03.9 Hypothyroidism, unspecified; E78.5 Hyperlipidemia, unspecified; I10 Essential (primary) hypertension; I25.10 Atherosclerotic heart disease of native coronary artery without angina pectoris; E11.9 Type 2 diabetes mellitus without complications
CPT/HCPCS: 99281

== ENCOUNTER 2024-12-26 13:40 | Outpatient (CLI) | payer MEDICARE, SELFPAY ==
[2024-12-26 13:52] LABS: Hematocrit 37.5 % (37.0-46.0); Hemoglobin 12.9 g/dL (12.4-15.3); Mean Corpuscular HGB Conc 34.4 g/dL (32-36); Mean Corpuscular Hemoglobin 31.2 pg (27.0-31.0); Mean Corpuscular Volume 90.8 fL (78.0-102.0); Platelet Count Result 300 K/mm3 (150-420); Red Blood Count 4.13 M/mm3 (4.70-6.10); White Blood Count 5.3 K/mm3 (4.8-10.8)
--- OUTSIDE RECORDS SUMMARY | 2024-12-26 13:53 | XMS_ITS | Encounter Summary ---
Author Organization [facility] Address [facility], [address] [place] [address] Care Team Providers Care Chocolate Temperer Name Role Phone Danielito Miles MD Primary Care Provider Hermilo Renee MD Unavailable Mikel Portillo MD Unavailable Jose Kumar MD Unavailable [phone] Amber Ramon APRN, INLETTER-C Unavailable Theo Alford MD Primary Care Provider Encounter Details Date Type Department Care Team (Late st Contact Info) Description 01/05/2021 YiBai-shopping Message Enc [facility] eld [address] [place] [address] Amber Ramon APRN, INLETTER-C [address] [facility] [address] [place] [address] RE: Other Social History Tobacco [...] Rule Out 04/08/2022 04/08/2022 04/08/2022 8:52 PM CUTTER OPERATOR ASBESTOS SHINGLE Parainfluenza 04/08/2022 04/08/2022 04/18/2022 12: 33 AM CUTTER OPERATOR ASBESTOS SHINGLE documented as of this encounter Care Teams Chocolate Temperer Relationship Specialty Start Date End Date Danielito Miles MD [address] [place] [phone] PCP - General FAMILY PRACTICE 11/17/17 09/25/23 Theo Alford MD [address] [place] [phone] PCP - General INTERNAL MEDICINE 09/26/23 Hermilo Renee MD [address] [place] [phone] INTERNAL MEDICINE 05/26/21 Mikel Portillo MD [address] [place] [address] Consulting Physician CARDIOVASCULAR DISEASE 12/01/21 Jose Kumar MD [address] [place] [address] Consulting Physician PULMONARY DISEASE 12/03/21 Amber Ramon, MEDICAL CLERICAL ASSISTANT, INLETTER-C [address] [address] NURSE PRACTITIONER 12/03/21 documented as of this encounter
--- OUTSIDE RECORDS SUMMARY | 2024-12-26 13:54 | XMS_ITS | Encounter Summary ---
Author Organization [facility] Address Count includes the [facility] [place] [address] Care Team Providers Care Cabinetmaker Helper Name Role Phone Danielito Miles MD Primary Care Provider Hermilo Renee MD Unavailable Mikel Portillo MD Unavailable [phone] Jose Kumar MD Unavailable [phone] Amber Ramno APRN, REFERRAL RN-C Unavailable Theo Alford MD Primary Care Provider [phone] Encounter Details Date Type Department Care Team (Late st Contact Info) Description 04/07/2022 Hospital Follow-up Call [facility] Cardiovascular Care Unit [address] [place] [address] Shannon Asher, RN Social History [...] Coronavirus/COVID-19? No / Unsure 04/08/2022 11:57 AM INSPECTOR SUBASSEMBLY documented as of this encounter Functional Status [...] Assessment Author Status No 03/29/2022 6:10 AM INSPECTOR SUBASSEMBLY Activ e * RETIRED Are you blind or do you have serious difficulty seeing, even when wearing glasses? Answer Date of Assessment Author Status No 03/29/2022 6:10 AM INSPECTOR SUBASSEMBLY Activ e * Do you have serious [...] 6:26 PM Indira Downing RN Active * [place] Suicide Severity Rating Scale (Screener/Recent Self-Report) Question Answer Date of Assessment Author Status 1. Wish to be (Past 1 Month) No 04/08/2022 6:26 PM INSPECTOR SUBASSEMBLY Indira Bonilla RN Activ e 2. Non-Specific [...] Date Author Status No 03/29/2022 6:10 AM INSPECTOR SUBASSEMBLY Maritza Manzo RN Active documented in this [...] Rule Out 04/08/2022 04/08/2022 04/08/2022 8:52 PM INSPECTOR SUBASSEMBLY Parainfluenza 04/08/2022 04/08/2022 04/18/2022 12: 33 AM INSPECTOR SUBASSEMBLY Assessment Noted Time PHQ-9 Depression Total Score: 0 01/14/20 21 10:06 AM CDT documented as of this encounter Care Teams Cabinetmaker Helper Relationship Specialty Start Date End Date Danielito Miles MD [address] [place] [phone] PCP - General FAMILY PRACTICE 11/17/17 09/25/23 Theo Alford MD [address] [place] [address] PCP - General INTERNAL MEDICINE 09/26/23 Hermilo Renee MD [address] [place] [phone] INTERNAL MEDICINE 05/26/21 Mikel Portillo MD [address] [place] [address] Consulting Physician CARDIOVASCULAR DISEASE 12/01/21 Jose Kumar MD [address] [place] [address] Consulting Physician PULMONARY DISEASE 12/03/21 Amber Ramon APRN, REFERRAL RN-C [address] [facility] [address] [place] [phone] NURSE PRACTITIONER 12/03/21 documented as of this encounter
--- OUTSIDE RECORDS SUMMARY | 2024-12-26 13:54 | XMS_ITS | Encounter Summary ---
Author Organization [facility] Address [address] [place] [address] Care Team Providers Care Quality Coordinator Name Role Phone Danielito Miles MD Primary Care Provider Hermilo Renee MD Unavailable Mikel Portillo MD Unavailable [phone] Jose Kumar MD Unavailable [phone] Amber Ramon APRN, SCRAP CHARGER-C Unavailable Theo Alford MD Primary Care Provider [phone] Encounter Details Date Type Department Care Team (Late st Contact Info) Description 09/29/2018 Abstract SFL CONVERSION [address] [place] [address] , Generic Conversion, Social History Tobacco Use [...] Rule Out 04/08/2022 04/08/2022 04/08/2022 8:52 PM ROOFING FOREMAN Parainfluenza 04/08/2022 04/08/2022 04/18/2022 12: 33 AM ROOFING FOREMAN documented as of this encounter Care Teams Quality Coordinator Relationship Specialty Start Date End Date Danielito Miles MD [address] [place] [phone] PCP - General FAMILY PRACTICE 11/17/17 09/25/23 Theo Alford MD [address] [place] [address] PCP - General INTERNAL MEDICINE 09/26/23 Hermilo Renee MD [address] [place] [phone] INTERNAL MEDICINE 05/26/21 Mikel Portillo MD [address] [place] [phone] Consulting Physician CARDIOVASCULAR DISEASE 12/01/21 Jose Kumar MD [address] [place] [address] Consulting Physician PULMONARY DISEASE 12/03/21 Amber Ramon APRN, SCRAP CHARGER-C [address] [place] [phone] NURSE PRACTITIONER 12/03/21 documented as of this encounter
--- OUTSIDE RECORDS SUMMARY | 2024-12-26 13:54 | XMS_ITS | Clinical Summary ---
Author Organization [facility] Address [address] [place] [phone] Phone Care Team Providers Care Thermostat Mechanic Name Role Phone Danielito Miles MD Primary Care Provider [phone] Allergies Active Allergy Reactions Criticality Noted Date [...] Shortness of Breath. Active cpap clinical medical assistant Low pressure 5. 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, S/P CABG on [...] on file Legal Sex Male 7:19 PM HEATING SYSTEMS INSTALLER Gender Identity Not on file Sexual Orientation Not on file Last Filed Vital Signs Vital Sign Reading Time Taken Comments Blood Pressure 116/58 05/19/2022 11:47 AM HEATING SYSTEMS INSTALLER Pulse 96 05/07/2022 10:27 AM HEATING SYSTEMS INSTALLER Temperature 36.4 C (97.6 F) 05/19/2022 11:47 AM HEATING SYSTEMS INSTALLER Respiratory Rate 18 05/07/2022 10:27 AM HEATING SYSTEMS INSTALLER Oxygen Saturation 95% 05/07/2022 10:27 AM HEATING SYSTEMS INSTALLER Inhaled Oxygen Concentration - - Weight 78.5 kg (173 lb) 05/19/2022 11:47 AM HEATING SYSTEMS INSTALLER Height 167.6 cm (5' 6) 05/19/2022 11:47 AM HEATING SYSTEMS INSTALLER Body Mass Index 27.92 05/19/2022 11:47 AM HEATING SYSTEMS INSTALLER Plan of Treatment Health Maintenance Due Date [...] 12/01/2020, 05/02/2020 Medical Devices Implanted Type Area Cath Lab Technologist Device Identifier Shelf Expiration Date Model / Serial / Lot Clip Ti Med/Lg 3200 - [facility] - [id number] Implanted:Qty: 1 on 05/05/2022 by Wilber Lockett MD at [facility] N/A: Abdomen TELEFLEX- WECK CLOSURE SYS 12/23/2026 [id number] / / [id number] Clip Ti Med/Lg 3200 - [facility] - [id number] Implanted:Qty: 1 on 05/05/2022 by Wilber Lockett MD at [facility] N/A: Abdomen TELEFLEX- WECK CLOSURE SYS 11/29/2026 [id number] / / [id number] Hemostatic Surg Powder 3013sp - [id number] Implanted:Qty: 1 on 05/05/2022 by Wilber Lockett MD at [facility] Hemostatic N/A: Abdomen J[employer]J- [employer] 06/22/2023 [id number] / / [id number] Insurance AETNA O [facility] RX AETNA Medicare Part D Advance Directives For more information, please contact: [phone] * Full Code (Latest Code Status on File) Date Activated Date Inactivated Comments 05/06/2022 7:51 PM 05/07/2022 7:28 PM * Full Code Date Activated Date Inactivated Comments 05/04/2022 8:44 AM 05/06/2022 7:50 PM * Default Full Code - Needs Discussion Date Activated Date Inactivated Comments 05/04/2022 4:41 AM 05/04/2022 8:43 AM Care Teams Thermostat Mechanic Relationship Specialty Start Date End Date Danielito Miles MD [address] [place] [address] PCP - General Family Practice 05/04/22
--- OUTSIDE RECORDS SUMMARY | 2024-12-26 13:54 | XMS_ITS | Encounter Summary ---
Author Organization [facility] Address [facility]6 [place] [address] Care Team Providers Care Needle Loom Tender Name Role Phone Danielito Miles MD Primary Care Provider Hermilo Renee MD Unavailable Mikel Portillo MD Unavailable [phone] Jose Kumar MD Unavailable [phone] Amber Ramon APRN, CLINICAL STAFF ANESTHESIOLOGIST-C Unavailable Theo Alford MD Primary Care Provider [phone] Encounter Details Date Type Department Care Team (Late st Contact Info) Description 12/15/2021 MyChart Message Enc [facility] [address] [place] [address] Jose Kumar MD [address] [place] [address] Test results from rough rice grader Social History Tobacco Use Types Packs/Day Years [...] Out 04/08/2022 04/08/2022 04/08/2022 8:52 PM METAL FURNITURE POLISHER Parainfluenza 04/08/2022 04/08/2022 04/18/2022 12: 33 AM METAL FURNITURE POLISHER Assessment Noted Time PHQ-9 Depression Total Score: 0 01/14/20 21 10:06 AM CDT documented as of this encounter Care Teams Needle Loom Tender Relationship Specialty Start Date End Date Danielito Miles MD [address] [place] [phone] PCP - General FAMILY PRACTICE 11/17/17 09/25/23 Theo Alford MD [address] [place] [address] PCP - General INTERNAL MEDICINE 09/26/23 Hermilo Renee MD [address] [place] [phone] INTERNAL MEDICINE 05/26/21 Mikel Portillo MD [address] [place] [phone] Consulting Physician CARDIOVASCULAR DISEASE 12/01/21 Jose Kumar MD [address] [place] [address] Consulting Physician PULMONARY DISEASE 12/03/21 Amber Ramon APRN, CLINICAL STAFF ANESTHESIOLOGIST-C [address] [place] [address] [address] [place] [address] NURSE PRACTITIONER 12/03/21 documented as of this encounter
--- OUTSIDE RECORDS SUMMARY | 2024-12-26 13:54 | XMS_ITS | Encounter Summary ---
Author Organization [facility] Address [facility]6 [place] [address] Care Team Providers Care Upset Welding Machine Operator Name Role Phone Danielito Miles MD Primary Care Provider Hermilo Renee MD Unavailable Mikel Portillo MD Unavailable [phone] Jose Kumar MD Unavailable [phone] Amber Ramon APRN, MANAGER MEETING-C Unavailable Theo Alford MD Primary Care Provider [phone] Encounter Details Date Type Department Care Team (Late st Contact Info) Description 12/04/2021 MyChart Message Enc [facility] [address] [place] [address] Jose Kumar MD [address] [place] [address] bicycle rides continued Social History [...] Rule Out 04/08/2022 04/08/2022 04/08/2022 8:52 PM RECORD PRESS SUPERVISOR Parainfluenza 04/08/2022 04/08/2022 04/18/2022 12: 33 AM RECORD PRESS SUPERVISOR Assessment Noted Time PHQ-9 Depression Total Score: 0 01/14/20 21 10:06 AM CDT documented as of this encounter Care Teams Upset Welding Machine Operator Relationship Specialty Start Date End Date Danielito Miles MD [address] [place] [phone] PCP - General FAMILY PRACTICE 11/17/17 09/25/23 Theo Alford MD 4 [place] [address] PCP - General INTERNAL MEDICINE 09/26/23 Hermilo Renee MD [address] [place] [phone] INTERNAL MEDICINE 05/26/21 Mikel Portillo MD [address] [place] [address] Consulting Physician CARDIOVASCULAR DISEASE 12/01/21 Jose Kumar MD [address] [place] [address] Consulting Physician PULMONARY DISEASE 12/03/21 Amber Ramon, CELESTINA, MANAGER MEETING-C [address] [phone] NURSE PRACTITIONER 12/03/21 documented as of this encounter
--- OUTSIDE RECORDS SUMMARY | 2024-12-26 13:54 | XMS_ITS | Encounter Summary ---
Author Organization [facility] Address [facility]6 [place] [address] Care Team Providers Care Chisel Grinder Name Role Phone Danielito Miles MD Primary Care Provider Hermilo Renee MD Unavailable Mikel Portillo MD Unavailable [phone] Jose Kumar MD Unavailable [phone] Amber Ramon APRN, FOOD SAFETY OFFICER-C Unavailable Theo Alford MD Primary Care Provider [phone] Encounter Details Date Type Department Care Team (Late st Contact Info) Description 08/10/2021 MyChart Message Enc [facility] [address] [place] [address] Jose Kumar MD [address] [place] [address] July 23 CPAP results Social [...] Rule Out 04/08/2022 04/08/2022 04/08/2022 8:52 PM SPECIAL EDUCATION KINDERGARTEN TEACHER Parainfluenza 04/08/2022 04/08/2022 04/18/2022 12: 33 AM SPECIAL EDUCATION KINDERGARTEN TEACHER Assessment Noted Time PHQ-9 Depression Total Score: 0 01/14/20 21 10:06 AM CDT documented as of this encounter Care Teams Chisel Grinder Relationship Specialty Start Date End Date Danielito Miles MD [address] [place] [phone] PCP - General FAMILY PRACTICE 11/17/17 09/25/23 Theo Alford MD [address] [place] [address] PCP - General INTERNAL MEDICINE 09/26/23 Hermilo Renee MD [address] [place] [phone] INTERNAL MEDICINE 05/26/21 Mikel Portillo MD [address] [place] [address] Consulting Physician CARDIOVASCULAR DISEASE 12/01/21 Jose Kumar MD [address] [place] [address] Consulting Physician PULMONARY DISEASE 12/03/21 Amber Ramon, CELESTINA, FOOD SAFETY OFFICER-C [address] [phone] NURSE PRACTITIONER 12/03/21 documented as of this encounter
--- OUTSIDE RECORDS SUMMARY | 2024-12-26 13:54 | XMS_ITS | Encounter Summary ---
Author Organization [facility] Address [facility] hospital6 [place] [address] Care Team Providers Care Boilermaker Industrial Boilers Name Role Phone Danielito Miles MD Primary Care Provider Hermilo Renee MD Unavailable Mikel Portillo MD Unavailable [phone] Jose Kumar MD Unavailable [phone] Amber Ramon APRN, MINER PLACER-C Unavailable [phone] Theo Alford MD Primary Care Provider [phone] Encounter Details Date Type Department Care Team (Late st Contact Info) Description 04/13/2021 MyChart Message Enc [facility] [address] [place] [address] Jose Kumar MD [address] [place] [address] CPAP has arrived Social History [...] have responded to patient through my chart OMER EXPERIENCE ANALYST * Jolie Hernandez MA - 04/13/2021 1:12 PM CST See attachment OMER EXPERIENCE ANALYST * Jose Kumar MD - 04/13/2021 11:39 AM CST I have responded to patient through my chart OMER EXPERIENCE ANALYST * Jolie Hernandez MA - 04/13/2021 11:25 AM CST Please respond to pt OMER EXPERIENCE ANALYST documented in this encounter Plan of Treatment Not on file documented as of this encounter Visit Diagnoses Not on filedocumented in this encounter Additional Health Concerns Infection Onset Date Last Indicated Resolved Time COVID-19 Rule Out 04/08/2022 04/08/2022 04/08/2022 8:52 PM CUSTOMER EXPERIENCE ANALYST Parainfluenza 04/08/2022 04/08/2022 04/18/2022 12: 33 AM CUSTOMER EXPERIENCE ANALYST Assessment Noted Time PHQ-9 Depression Total Score: 0 01/14/20 10:06 AM CDT documented as of this encounter Care Teams Boilermaker Industrial Boilers Relationship Specialty Start Date End Date Danielito Miles MD [address] [place] [phone] PCP - General FAMILY PRACTICE 11/17/17 09/25/23 Theo Alford MD [address] [place] [address] PCP - General INTERNAL MEDICINE 09/26/23 Hermilo Renee MD [address] [place] [phone] INTERNAL MEDICINE 05/26/21 Mikel Portillo MD [address] [place] [address] Consulting Physician CARDIOVASCULAR DISEASE 12/01/21 Jose Kumar MD [address] [place] [address] Consulting Physician PULMONARY DISEASE 12/03/21 Amber Ramon APRN, MINER PLACER-C [address] [facility] [address] [place] [address] NURSE PRACTITIONER 12/03/21 documented as of this encounter
--- OUTSIDE RECORDS SUMMARY | 2024-12-26 13:54 | XMS_ITS | Encounter Summary ---
Author Organization [facility] Address [facility]6 [place] [address] Care Team Providers Care Application Architect Manager Name Role Phone Danielito Miles MD Primary Care Provider Hermilo Renee MD Unavailable Mikel Portillo MD Unavailable [phone] Jose Kumar MD Unavailable [phone] Amber Ramon APRN JUNIOR MEDIA BUYER-C Unavailable Theo Alford MD Primary Care Provider [phone] Encounter Details Date Type Department Care Team (Late st Contact Info) Description 02/11/2022 GoPlaceIt Message Enc [facility] ield [address] [place], [place] [address] Lucina Barba, COLEEN [address] [facility] 2nd [place] [address] CT results Social History Tobacco [...] Rule Out 04/08/2022 04/08/2022 04/08/2022 8:52 PM PHARMACEUTICAL OFFICER Parainfluenza 04/08/2022 04/08/2022 04/18/2022 12: 33 AM PHARMACEUTICAL OFFICER Assessment Noted Time PHQ-9 Depression Total Score: 0 01/14/20 21 10:06 AM CDT documented as of this encounter Care Teams Application Architect Manager Relationship Specialty Start Date End Date Danielito Miles MD [address] [place] [phone] PCP - General FAMILY PRACTICE 11/17/17 09/25/23 Theo Alford MD [address] [place] [address] PCP - General INTERNAL MEDICINE 09/26/23 Hermilo Renee MD [address] [place] [phone] INTERNAL MEDICINE 05/26/21 Mikel Portillo MD [address] [place] [address] Consulting Physician CARDIOVASCULAR DISEASE 12/01/21 Jose Kumar MD [address] [place] [address] Consulting Physician PULMONARY DISEASE 12/03/21 Amber Ramon APRN, JUNIOR MEDIA BUYER-C [address] [facility] [address] [place] [phone] NURSE PRACTITIONER 12/03/21 documented as of this encounter
--- OUTSIDE RECORDS SUMMARY | 2024-12-26 13:54 | XMS_ITS | Encounter Summary ---
Author Organization [facility] Address [facility] [place] [address] Care Team Providers Care Bomb Technician Name Role Phone Danielito Miles MD Primary Care Provider Hermilo Renee MD Unavailable Mikel Portillo MD Unavailable [phone] Jose Kumar MD Unavailable [phone] Amber Ramon APRN, TECHNICAL SERVICES ANALYST-C Unavailable Theo Alford MD Primary Care Provider [phone] Encounter Details Date Type Department Care Team (Late st Contact Info) Description 12/04/2021 MyChart Message Enc [facility] [address] [place] [address] Jose Kumar MD [address] [place] [address] bicycle rides Social History Tobacco [...] Please add patient to my schedule in [place] for December 09 and give him the date and time. * Jolie Hernandez MA - 12/06/2021 10:10 AM CDT See other [facility] message as well documented in this encounter Plan of Treatment Not on file documented as of this encounter Visit Diagnoses Not on filedocumented in this encounter Additional Health Concerns Infection Onset Date Last Indicated Resolved Time COVID-19 Rule Out 04/08/2022 04/08/2022 04/08/2022 8:52 PM MEDICAL AIDES TEACHER Parainfluenza 04/08/2022 04/08/2022 04/18/2022 12: 33 AM MEDICAL AIDES TEACHER Assessment Noted Time PHQ-9 Depression Total Score: 0 01/14/20 21 10:06 AM CDT documented as of this encounter Care Teams Bomb Technician Relationship Specialty Start Date End Date Danielito Miles MD [address] [place] [phone] PCP - General FAMILY PRACTICE 11/17/17 09/25/23 Theo Alford MD [address] [place] [address] PCP - General INTERNAL MEDICINE 09/26/23 Hermilo Renee MD [address] [place] [phone] INTERNAL MEDICINE 05/26/21 Mikel Portillo MD [address] [place] [address] Consulting Physician CARDIOVASCULAR DISEASE 12/01/21 Jose Kumar MD [address] [place] [address] Consulting Physician PULMONARY DISEASE 12/03/21 Amber Ramon APRN, TECHNICAL SERVICES ANALYST-C [address] [facility] [address] [place] [phone] NURSE PRACTITIONER 12/03/21 documented as of this encounter
--- OUTSIDE RECORDS SUMMARY | 2024-12-26 13:54 | XMS_ITS | Encounter Summary ---
Author Organization [facility] Address [facility]6 [place] [address] Care Team Providers Care Gear Lapper Name Role Phone Danielito Miles MD Primary Care Provider Hermilo Renee MD Unavailable Mikel Portillo MD Unavailable [phone] Jose Kumar MD Unavailable [phone] Amber Ramon APRN, CLAY BURNER-C Unavailable Theo Alford MD Primary Care Provider [phone] Encounter Details Date Type Department Care Team (Late st Contact Info) Description 12/13/2021 MyChart Message Enc [facility] Medical Group [facility]ty Clinic [address] [place] [address] Jose Kumar MD [address] [place] [address] chest x-ray Social History Tobacco [...] Rule Out 04/08/2022 04/08/2022 04/08/2022 8:52 PM TIRE TRIMMER HAND Parainfluenza 04/08/2022 04/08/2022 04/18/2022 12: 33 AM TIRE TRIMMER HAND Assessment Noted Time PHQ-9 Depression Total Score: 0 01/14/20 21 10:06 AM CDT documented as of this encounter Care Teams Gear Lapper Relationship Specialty Start Date End Date Danielito Miles MD [address] [place] [phone] PCP - General FAMILY PRACTICE 11/17/17 09/25/23 Theo Alford MD [address] [place] [address] PCP - General INTERNAL MEDICINE 09/26/23 Hermilo Renee MD [address] [place] [phone] INTERNAL MEDICINE 05/26/21 Mikel Portillo MD [address] [place] [address] Consulting Physician CARDIOVASCULAR DISEASE 12/01/21 Jose Kumar MD [address] [place] [address] Consulting Physician PULMONARY DISEASE 12/03/21 Amber Ramon, CELESTINA, CLAY BURNER-C [address] [phone] NURSE PRACTITIONER 12/03/21 documented as of this encounter
--- OUTSIDE RECORDS SUMMARY | 2024-12-26 13:54 | XMS_ITS | Encounter Summary ---
Author Organization [facility] Address [facility]6 [place] [address] Care Team Providers Care Hasher Machine Operator Name Role Phone Danielito Miles MD Primary Care Provider Hermilo Renee MD Unavailable Mikel Portillo MD Unavailable [phone] Jose Kumar MD Unavailable [phone] Amber Ramon APRN, CUT OFF MAN-C Unavailable Theo Alford MD Primary Care Provider [phone] Encounter Details Date Type Department Care Team (Late st Contact Info) Description 04/13/2021 MyChart Message Enc [facility] Medical [facility] [address] [place] [address] Jose Kumar MD [address] [place] [address] MRI Social History Tobacco Use [...] have responded to patient through my chart MACY INFORMATICIST * Jolie Hernandez MA - 04/13/2021 11:25 AM CST Please respond to pt MACY INFORMATICIST documented in this encounter Plan of Treatment Not on file documented as of this encounter Visit Diagnoses Not on filedocumented in this encounter Additional Health Concerns Infection Onset Date Last Indicated Resolved Time COVID-19 Rule Out 04/08/2022 04/08/2022 04/08/2022 8:52 PM PHARMACY INFORMATICIST Parainfluenza 04/08/2022 04/08/2022 04/18/2022 12: 33 AM PHARMACY INFORMATICIST Assessment Noted Time PHQ-9 Depression Total Score: 0 01/14/20 21 10:06 AM CDT documented as of this encounter Care Teams Hasher Machine Operator Relationship Specialty Start Date End Date Danielito Miles MD [address] [place] [phone] PCP - General FAMILY PRACTICE 11/17/17 09/25/23 Theo Alford MD [address] [place] [address] PCP - General INTERNAL MEDICINE 09/26/23 Hermilo Renee MD [address] [place] [phone] INTERNAL MEDICINE 05/26/21 Mikel Portillo MD [address] [place] [address] Consulting Physician CARDIOVASCULAR DISEASE 12/01/21 Jose Kumar MD [address] [place] [address] Consulting Physician PULMONARY DISEASE 12/03/21 Amber Ramon, GLASS MECHANIC, CUT OFF MAN-C [address] [facility] [address] [place] [phone] NURSE PRACTITIONER 12/03/21 documented as of this encounter
--- OUTSIDE RECORDS SUMMARY | 2024-12-26 13:54 | XMS_ITS | Encounter Summary ---
Author Organization [facility] Address [facility]6 [place] [address] Care Team Providers Care Event Coordinator Marketing And Sales Name Role Phone Danielito Miles MD Primary Care Provider [phone] Hermilo Renee MD Unavailable Mikel Portillo MD Unavailable [phone] Jose Kumar MD Unavailable [phone] Amber Ramon APRN, SPARK PLUG TESTER-C Unavailable Theo Alford MD Primary Care Provider [phone] Encounter Details Date Type Department Care Team (Late st Contact Info) Description 06/03/[address] [facility] Medical [facility]ty [facility] [address] [place] [address] Jose Kumar MD [address] [place] [address] CPAP machine results Social History [...] Rule Out 04/08/2022 04/08/2022 04/08/2022 8:52 PM POT PUSHER Parainfluenza 04/08/2022 04/08/2022 04/18/2022 12: 33 AM POT PUSHER Assessment Noted Time PHQ-9 Depression Total Score: 0 01/14/20 21 10:06 AM CDT documented as of this encounter Care Teams Event Coordinator Marketing And Sales Relationship Specialty Start Date End Date Danielito Miles MD [address] [place] [phone] PCP - General FAMILY PRACTICE 11/17/17 09/25/23 Theo Alford MD [address] [place] [address] PCP - General INTERNAL MEDICINE 09/26/23 Hermilo Renee MD [address] [place] [phone] INTERNAL MEDICINE 05/26/21 Mikel Portillo MD [address] [place] [phone] Consulting Physician CARDIOVASCULAR DISEASE 12/01/21 Jose Kumar MD [address] [place] [address] Consulting Physician PULMONARY DISEASE 12/03/21 Amber Ramon, CELESTINA, SPARK PLUG TESTER-C [address] [address] NURSE PRACTITIONER 12/03/21 documented as of this encounter
--- OUTSIDE RECORDS SUMMARY | 2024-12-26 13:54 | XMS_ITS | Clinical Summary ---
Author Organization [facility] Address [address] [place] [address] Care Team Providers Care Credit Adjuster Name Role Phone Danielito Miles MD Primary Care Provider [phone] Aureliano Sweeney MD Unavailable [phone] Allergies Active Allergy Reactions Criticality Noted [...] mcg tablet Take 100 mcg by mouth dough mixer helper before breakfast Active metFORMIN (GLUCOPHAGE) 500 mg [...] Take 1,000 mg by mouth daily Active dbfd6-unr-anc-fis h oil-L.casei 120 mg-400 mg -4 billion cell capsule Take 460 mg by mouth daily after lunch Active Active Problems Problem Noted Date Diagnosed Date Lower leg mass, right 07/08/2021 Overview (07/08/2021): Added automatically from request for surgery [id number] Assessment & Plan (07/29/2021 11:24 AM CDT): [...] therapy. Assessment & Plan (06/25/2021 8:16 AM HINGING MACHINE OPERATOR): Impression: Chronic diabetes mellitus controlled with insulin. Patient reports his last A1c was 7.3. Plan: Medications reviewed, no changes made. Continue glucose monitoring and management as per primary care. Pain and swelling of right lower extremity 06/25 Assessment & Plan (06/25/2021 8:38 AM HINGING MACHINE OPERATOR): Impression: Patient complains of swelling to [...] management. Assessment & Plan (06/25/2021 8:17 AM HINGING MACHINE OPERATOR): Impression: Chronic stable hypertension, controlled medications. [...] degenerative problems causes SOB, seeing specialist at [facility]. soon Sleep apnea CPAP TETLIN (hard of hearing) mild Arthritis Hypothyroid on [...] on file Legal Sex Male 7:24 PM HINGING MACHINE OPERATOR Gender Identity Not on file Sexual [...] MD LAB BLOOD ORDERABLES Final Result [place] [address] [facility] Department [place] [address] from Last 3 Months or Most Recently Relevant to Health Maintenance Insurance MEDICARE HMO/PPO MEDICARE HMO/PPO MEDICARE HMO/PPO Care Teams Credit Adjuster Relationship Specialty Start Date End Date Danielito Miles MD PCP - General Family Medicine 05/21/21 Aureliano Sweeney MD [address] [facility] [address] [place] [address] Surgeon Surgery 07/15/21
--- OUTSIDE RECORDS SUMMARY | 2024-12-26 13:54 | XMS_ITS | Encounter Summary ---
Author Organization [facility] Address [facility]6 [place] [address] Care Team Providers Care Clipper And Turner Name Role Phone Danielito Miles MD Primary Care Provider [phone] Hermilo Renee MD Unavailable Mikel Portillo MD Unavailable [phone] Jose Kumar MD Unavailable [phone] Amber Ramon APRN, REPAIRER HANDTOOLS-C Unavailable Theo Alford MD Primary Care Provider [phone] Encounter Details Date Type Department Care Team (Latest Contact Info) Description 01/05/2022 Self Point Message [facility] [place] [address] Jeff Oliveros MD [address] [place] [address] appointment Social History Tobacco Use [...] Rule Out 04/08/2022 04/08/2022 04/08/2022 8:52 PM QUAIL FARMER Parainfluenza 04/08/2022 04/08/2022 04/18/2022 12: 33 AM QUAIL FARMER Assessment Noted Time PHQ-9 Depression Total Score: 0 01/14/20 21 10:06 AM CDT documented as of this encounter Care Teams Clipper And Turner Relationship Specialty Start Date End Date Danielito Miles MD [address] [place] [phone] PCP - General FAMILY PRACTICE 11/17/17 09/25/23 Theo Alford MD [address] [place] [address] PCP - General INTERNAL MEDICINE 09/26/23 Hermilo Renee MD [address] [place] [phone] INTERNAL MEDICINE 05/26/21 Mikel Portillo MD [address] [place] [address] Consulting Physician CARDIOVASCULAR DISEASE 12/01/21 Jose Kumar MD [address] [place] [address] Consulting Physician PULMONARY DISEASE 12/03/21 Amber Ramon, CELESTINA, REPAIRER HANDTOOLS-C [address] [phone] NURSE PRACTITIONER 12/03/21 documented as of this encounter
--- OUTSIDE RECORDS SUMMARY | 2024-12-26 13:54 | XMS_ITS | Clinical Summary ---
Author Organization [facility] Address [facility] [place] [address] Care Team Providers Care Route Sales Representative Name Role Phone Hermilo Renee MD Unavailable [...] Comments Blood Pressure 119/55 05/04/2022 2:30 AM DAMAGE ADJUSTER Pulse 88 05/04/2022 2:30 AM DAMAGE ADJUSTER Temperature 37.1 C (98.7 F) 05/03/2022 11:59 AM DAMAGE ADJUSTER Respiratory Rate 21 05/04/2022 2:30 AM DAMAGE ADJUSTER Oxygen Saturation 99% 05/04/2022 2:30 AM DAMAGE ADJUSTER Inhaled Oxygen Concentration - - Weight 81.2 kg (179 lb) 05/03/2022 11:59 AM DAMAGE ADJUSTER Height 167.6 cm (5' 6) 05/03/2022 11:59 AM DAMAGE ADJUSTER Body Mass Index 28.89 05/03/2022 11:59 AM DAMAGE ADJUSTER Plan of Treatment Health Maintenance Due Date [...] 5:07 PM 02/09/2022 6:15 PM Care Teams Route Sales Representative Relationship Specialty Start Date End Date Theo Alford MD [address] [place] [address] PCP - General INTERNAL MEDICINE 09/26/23 Hermilo Renee MD INTERNAL MEDICINE 05/26/21 Mikel Portillo MD [address] [place] [address] Consulting Physician CARDIOVASCULAR DISEASE 12/01/21 Jose Kumar MD [address] [place] [address] Consulting Physician PULMONARY DISEASE 12/03/21 Amber Ramon APRN, DATA MANAGER-C [address] [facility] [address] [place] [phone] NURSE PRACTITIONER 12/03/21
--- OUTSIDE RECORDS SUMMARY | 2024-12-26 13:54 | XMS_ITS | Encounter Summary ---
Author Organization [facility] Address [facility] [place] [address] Care Team Providers Care Business Management Intern Name Role Phone Danielito Miles MD Primary Care Provider Hermilo Renee MD Unavailable Mikel Portillo MD Unavailable [phone] Jose Kumar MD Unavailable [phone] Amber Ramon APRN, ETHOLOGIST-C Unavailable Theo Alford MD Primary Care Provider [phone] Encounter Details Date Type Department Care Team (Late st Contact Info) Description 12/13/2021 MyChart Message Enc [facility] [address] [place] [address] Jose Kumar MD [address] [place] [address] vitamin D-3 Social History Tobacco [...] Rule Out 04/08/2022 04/08/2022 04/08/2022 8:52 PM JUNIOR SYSTEMS ANALYST Parainfluenza 04/08/2022 04/08/2022 04/18/2022 12: 33 AM JUNIOR SYSTEMS ANALYST Assessment Noted Time PHQ-9 Depression Total Score: 0 01/14/20 21 10:06 AM CDT documented as of this encounter Care Teams Business Management Intern Relationship Specialty Start Date End Date Danielito Miles MD [address] [place] [phone] PCP - General FAMILY PRACTICE 11/17/17 09/25/23 Theo Alford MD [address] [place] [address] PCP - General INTERNAL MEDICINE 09/26/23 Hermilo Renee MD [address] [place] [phone] INTERNAL MEDICINE 05/26/21 Mikel Portillo MD [address] [place] [address] Consulting Physician CARDIOVASCULAR DISEASE 12/01/21 Jose Kumar MD [address] [place] [address] Consulting Physician PULMONARY DISEASE 12/03/21 Amber Ramon, CELE[place], ETHOLOGIST-C [address] [phone] NURSE PRACTITIONER 12/03/21 documented as of this encounter
[2024-12-26 14:03] LABS: Anion Gap 8 mmol/L (4-12); Blood Urea Nitrogen 13 mg/dL (9-20); Calcium 9.9 mg/dL (8.4-10.2); Carbon Dioxide 33 mmol/L (22-30); Chloride 90 mmol/L (98-107); Estimated Glomerular Filt Rate > 60; Glucose 126 mg/dL (65-110); Osmolality Calculated 274 mOsm/kg (285-295); Potassium 5.6 mmol/L (3.4-5.0); Sodium 131 mmol/L (137-145)
== END 2024-12-26 13:41 | disposition home or self-care (01) ==
LOC: CHSLAB 13:43
PROVIDERS: PCP Internal Medicine; Visit Provider Internal Medicine
DX: E87.1 Hypo-osmolality and hyponatremia (principal); D64.9 Anemia, unspecified
CPT/HCPCS: 36415; 80048; 85027

== ENCOUNTER 2025-01-31 09:02 | Outpatient (CLI) | payer MEDICARE, SELFPAY ==
[2025-01-31 09:14] LABS: Add Urine Microscopic? YES; Appearance Urine Clear (Clear); Glucose Urine UA Negative (Negative); Leukocyte Esterase Ur 1+ (Negative); Nitrate Urine Negative (Negative); Specific Grav Ur 1.020 (1.010-1.020)
--- OUTSIDE RECORDS SUMMARY | 2025-01-31 09:19 | XMS_ITS | Clinical Summary ---
Author Organization [facility] Address [address] [place] [address] Care Team Providers Care Sales Expert Name Role Phone Danielito Miles MD Primary Care Provider [phone] Aureliano Sweeney MD Unavailable [phone] Allergies Active Allergy Reactions Criticality Noted Date [...] mcg tablet Take 100 mcg by mouth slice plug cutter operator helper before breakfast Active metFORMIN (GLUCOPHAGE) 500 [...] Take 1,000 mg by mouth daily Active asks9-kpo-ppl-fis h oil-L.casei 120 mg-400 mg -4 billion cell capsule Take 460 mg by mouth daily after lunch Active Active Problems Problem Noted Date Diagnosed Date Lower leg mass, right 07/08/2021 Overview (07/08/2021): Added automatically from request for surgery [id number] Assessment & Plan (07/29/2021 11:24 AM CDT): [...] therapy. Assessment & Plan (06/25/2021 8:16 AM WOUND CARE RN): Impression: Chronic diabetes mellitus controlled with insulin. Patient reports his last A1c was 7.3. Plan: Medications reviewed, no changes made. Continue glucose monitoring and management as per primary care. Pain and swelling of right lower extremity 06/25 Assessment & Plan (06/25/2021 8:38 AM WOUND CARE RN): Impression: Patient complains of swelling to his [...] management. Assessment & Plan (06/25/2021 8:17 AM WOUND CARE RN): Impression: Chronic stable hypertension, controlled medications. 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 soon Sleep apnea CPAP [place] (hard of hearing) mild Arthritis Hypothyroid on [...] on file Legal Sex Male 7:24 PM WOUND CARE RN Gender Identity Not on file Sexual Orientation [...] eGFR 07/15/2022 07/15/2021 Covid-19 Vaccine ( season) 2024, 07/10/2020 Influenza Vaccine (#1) 2024 , 02/12/2019, [...] MD LAB BLOOD ORDERABLES Final Result [facility] Department [place] [address] from Last 3 Months or Most Recently Relevant to Health Maintenance Insurance MEDICARE HMO/PPO [facility] MEDICARE HMO/PPO MEDICARE HMO/PPO Care Teams Sales Expert Relationship Specialty Start Date End Date Danielito Miles MD PCP - General Family Medicine 05/21/21 Aureliano Sweeney MD [address] [place] [address] Surgeon Surgery 07/15/21
--- OUTSIDE RECORDS SUMMARY | 2025-01-31 09:19 | XMS_ITS | Clinical Summary ---
Author Organization [facility] Address [address] [place] [phone] Phone Care Team Providers Care Lead Installer Name Role Phone Danielito Miles MD Primary Care Provider [phone] Allergies Active Allergy Reactions Criticality Noted Date [...] for Shortness of Breath. Active cpap medical assistant ob gyn Low pressure 5. High pressure 20. 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, S/P CABG on [...] on file Legal Sex Male 7:19 PM BOARD OF DIRECTORS Gender Identity Not on file Sexual Orientation Not on file Last Filed Vital Signs Vital Sign Reading Time Taken Comments Blood Pressure 116/58 05/19/2022 11:47 AM BOARD OF DIRECTORS Pulse 96 05/07/2022 10:27 AM BOARD OF DIRECTORS Temperature 36.4 C (97.6 F) 05/19/2022 11:47 AM BOARD OF DIRECTORS Respiratory Rate 18 05/07/2022 10:27 AM BOARD OF DIRECTORS Oxygen Saturation 95% 05/07/2022 10:27 AM BOARD OF DIRECTORS Inhaled Oxygen Concentration - - Weight 78.5 kg (173 lb) 05/19/2022 11:47 AM BOARD OF DIRECTORS Height 167.6 cm (5' 6) 05/19/2022 11:47 AM BOARD OF DIRECTORS Body Mass Index 27.92 05/19/2022 11:47 AM BOARD OF DIRECTORS Plan of Treatment Health Maintenance Due Date [...] 12/01/2020, 05/02/2020 Medical Devices Implanted Type Area Division Operations Manager Device Identifier Shelf Expiration Date Model / Serial / Lot Clip Ti Med/Lg 3200 - [facility] [place] - [id number] Implanted:Qty: 1 on 05/05/2022 by Wilber Lockett MD at [facility] N/A: Abdomen TELEFLEX- WECK CLOSURE SYS 12/23/2026 [id number] / / [id number] Clip Ti Med/Lg 3200 - [facility] - [id number] Implanted:Qty: 1 on 05/05/2022 by Wilber Lockett MD at [facility] N/A: Abdomen TELEFLEX- WECK CLOSURE SYS 11/29/2026 [id number] / / [id number] Hemostatic Surg Powder 3013sp - [id number] Implanted:Qty: 1 on 05/05/2022 by Wilber Lockett MD at [facility] Hemostatic N/A: Abdomen [employer]- [employer] 06/22/2023 [id number] / / [id number] Insurance AETNA O [facility] RX AET[employer] Medicare Part D Advance Directives For more information, please contact: [phone] * Full Code (Latest Code Status on File) Date Activated Date Inactivated Comments 05/06/2022 7:51 PM 05/07/2022 7:28 PM * Full Code Date Activated Date Inactivated Comments 05/04/2022 8:44 AM 05/06/2022 7:50 PM * Default Full Code - Needs Discussion Date Activated Date Inactivated Comments 05/04/2022 4:41 AM 05/04/2022 8:43 AM Care Teams Lead Installer Relationship Specialty Start Date End Date Danielito Miles MD [address] [place] [address] PCP - General Family Practice 05/04/22
[2025-01-31 09:25] LABS: Hemoglobin A1C 6.7 % (<5.7)
[2025-01-31 09:33] LABS: Anion Gap 8 mmol/L (4-12); Blood Urea Nitrogen 18 mg/dL (9-20); Calcium 9.9 mg/dL (8.4-10.2); Carbon Dioxide 32 mmol/L (22-30); Chloride 99 mmol/L (98-107); Estimated Glomerular Filt Rate > 60; Glucose 154 mg/dL (65-110); Osmolality Calculated 292 mOsm/kg (285-295); Potassium 4.9 mmol/L (3.4-5.0); Sodium 139 mmol/L (137-145)
== END 2025-01-31 09:03 | disposition home or self-care (01) ==
LOC: CHSLAB 09:03
PROVIDERS: PCP Internal Medicine; Visit Provider Internal Medicine
DX: E11.65 Type 2 diabetes mellitus with hyperglycemia (principal)
CPT/HCPCS: 36415; 80048; 81001; 83036